=== PATIENT | female | born 1940 | race Caucasian/White ===

== ENCOUNTER 2021-04-26 09:15 | Outpatient (REF) | payer OTHER, SELFPAY ==
[2021-04-26 12:02] LABS: Alanine Aminotransferase 25 U/L (0-31); Aspartate Amino Transferase 22 U/L (5-31); Cholesterol 139 mg/dL; HDL Cholesterol 37 mg/dL; LDL Cholesterol Calculated 76 mg/dl; Triglycerides 132 mg/dL; Vitamin D 25-OH Total 33.6 ng/mL (>30)
== END 2021-04-26 09:16 | disposition home or self-care (01) ==
LOC: HO.HMGCLDS 09:15
PROVIDERS: Visit Provider Internal Medicine
DX: E78.5 Hyperlipidemia, unspecified (principal); Z78.0 Asymptomatic menopausal state
CPT/HCPCS: 36415; 80061; 82306; 84450; 84460

== ENCOUNTER 2021-08-13 08:56 | Outpatient (REF) | payer OTHER, SELFPAY ==
[2021-08-13 11:58] LABS: Alanine Aminotransferase 24 U/L (0-31); Anion Gap 15 (12-20); Aspartate Amino Transferase 18 U/L (5-31); Blood Urea Nitrogen 23 mg/dL (9-16); Calcium 10.1 mg/dL (8.4-10.2); Carbon Dioxide 23 mmol/L (22-29); Chloride 105 mmol/L (96-108); Cholesterol 131 mg/dL; Estimated Glomerular Filt Rate 35; Glucose Fasting 221 mg/dL (60-99); HDL Cholesterol 37 mg/dL; LDL Cholesterol Calculated 76 mg/dl; Potassium 4.7 mmol/L (3.3-5.1); Sodium 138 mmol/L (135-145); Triglycerides 92 mg/dL
[2021-08-13 12:25] LABS: Vitamin D 25-OH Total 37.2 ng/mL (>30)
[2021-08-13 12:46] LABS: Folate 11.4 ng/mL (> or = 4.0); Vitamin B12 608 pg/mL (200-900)
== END 2021-08-13 08:57 | disposition home or self-care (01) ==
LOC: HO.HMGCLDS 08:56
PROVIDERS: Visit Provider Internal Medicine
DX: E78.2 Mixed hyperlipidemia (principal); N95.9 Unspecified menopausal and perimenopausal disorder
CPT/HCPCS: 36415; 80048; 80061; 82306; 82607; 82746; 84450; 84460

== ENCOUNTER 2022-02-19 08:53 | Outpatient (REF) | payer MEDICARE, SELFPAY ==
[2022-02-19 11:49] LABS: Estimated Average Glucose 217 mg/dL; Hemoglobin A1c % 9.2 %
[2022-02-19 12:12] LABS: Alanine Aminotransferase 24 U/L (0-31); Aspartate Amino Transferase 18 U/L (5-31); Cholesterol 144 mg/dL; HDL Cholesterol 38 mg/dL; LDL Cholesterol Calculated 77 mg/dl; Triglycerides 145 mg/dL
[2022-02-19 12:37] LABS: Alanine Aminotransferase 22 U/L (0-31); Albumin Level 4.1 g/dL (3.5-5.0); Alkaline Phosphatase 73 U/L (39-117); Anion Gap 14 (12-20); Aspartate Amino Transferase 17 U/L (5-31); Bilirubin Total 0.6 mg/dL (0.0-1.0); Blood Urea Nitrogen 26 mg/dL (9-16); Carbon Dioxide 25 mmol/L (22-29); Chloride 105 mmol/L (96-108); Estimated Glomerular Filt Rate 38; Glucose Random 275 mg/dL (60-115); Sodium 139 mmol/L (135-145); Total Protein 6.9 g/dL (6.5-8.0)
[2022-02-19 12:38] LABS: Microalbum/Creatinine Ratio Ur 38.9 ug/mg cr
[2022-02-20 08:39] LABS: LDL Cholesterol Direct 82 mg/dL (<100)
== END 2022-02-19 08:54 | disposition home or self-care (01) ==
LOC: HO.HMGCLDS 08:53
PROVIDERS: Absent Provider Physician Assistant; PCP Internal Medicine; Visit Provider Internal Medicine
DX: E78.5 Hyperlipidemia, unspecified (principal); E11.29 Type 2 diabetes mellitus with other diabetic kidney complication
CPT/HCPCS: 36415; 80053; 80061; 82043; 83036; 83721; 84450; 84460

== ENCOUNTER 2023-02-02 09:15 | Outpatient (REF) | payer MEDICARE, SELFPAY ==
[2023-02-02 11:48] LABS: Estimated Average Glucose 226 mg/dL; Hemoglobin A1c % 9.5 % (<6.0)
[2023-02-02 12:07] LABS: Creatinine Urine 86.26 mg/dL; Microalbum/Creatinine Ratio Ur 57.9 ug/mg cr (<30)
[2023-02-02 12:56] LABS: Alanine Aminotransferase 20 U/L (0-31); Alkaline Phosphatase 76 U/L (39-117); Anion Gap 11 (12-20); Aspartate Amino Transferase 18 U/L (5-31); Bilirubin Total 0.6 mg/dL (0.0-1.0); Blood Urea Nitrogen 22 mg/dL (9-16); Calcium 10.4 mg/dL (8.4-10.2); Carbon Dioxide 27 mmol/L (22-29); Chloride 103 mmol/L (96-108); Estimated Glomerular Filt Rate 45; Glucose Random 230 mg/dL (60-115); Potassium 4.5 mmol/L (3.3-5.1); Sodium 136 mmol/L (135-145); Total Protein 7.3 g/dL (6.5-8.0)
[2023-02-02 12:57] LABS: Alanine Aminotransferase 20 U/L (0-31); Aspartate Amino Transferase 20 U/L (5-31); Cholesterol 148 mg/dL (<200); HDL Cholesterol 40 mg/dL (>40); LDL Cholesterol Calculated 77 mg/dL (<100); Triglycerides 159 mg/dL (<150)
== END 2023-02-02 09:16 | disposition home or self-care (01) ==
LOC: HO.HMGCLDS 09:15
PROVIDERS: Absent Provider Internal Medicine; PCP Internal Medicine; Visit Provider Internal Medicine
DX: E78.2 Mixed hyperlipidemia (principal); E11.42 Type 2 diabetes mellitus with diabetic polyneuropathy
CPT/HCPCS: 36415; 80053; 80061; 82043; 82570; 83036; 84450; 84460

== ENCOUNTER 2023-06-02 15:04 | Outpatient (REF) | payer MEDICARE, SELFPAY ==
[2023-06-02 17:21] LABS: MANUAL DIFF FLAG NO
[2023-06-02 17:34] LABS: Basophils Absolute Auto 0.1 X10*3/uL (0.0-0.2); Basophils Percent Auto 0.6 % (0-2); Eosinophils Absolute Auto 0.3 X10*3/uL (0.0-0.4); Eosinophils Percent Auto 2.8 % (0-4); Hematocrit 42.6 % (37.0-47.0); Hemoglobin 14.8 g/dl (12.0-16.0); Imm Gran Abs Auto 0.03 X10*3/uL (0.00-0.03); Imm Gran Pct Auto 0.3 % (0.0-0.4); Lymphocytes Absolute Auto 2.3 X10*3/uL (1.2-4.9); Lymphocytes Percent Auto 25.1 % (20-40); Mean Corpuscular HGB Conc 34.7 g/dl (31.0-35.0); Mean Corpuscular Hemoglobin 31.6 pg (27.0-33.0); Mean Corpuscular Volume 90.8 fL (80.0-98.0); Mean Platelet Volume 10.7 fL (9.4-12.3); Monocytes Absolute Auto 0.9 X10*3/uL (0.1-1.2); Neutrophils Absolute Auto 5.7 x10*3/uL (2.0-8.3); Neutrophils Percent Auto 61.2 % (45-73); Platelet Count 199 X10*3/uL (160-400); Red Blood Count 4.69 X10*6/uL (4.20-5.50); Red Cell Distribution Width 12.6 % (11.0-16.0); White Blood Count 9.3 X10*3/uL (4.8-10.8)
[2023-06-02 17:42] LABS: Estimated Average Glucose 249 mg/dL; Hemoglobin A1c % 10.3 % (<6.0)
[2023-06-02 17:43] LABS: Prothrombin Time 11.9 SEC (11.1-13.3)
[2023-06-02 17:48] LABS: Alanine Aminotransferase 31 U/L (0-31); Anion Gap 16 (12-20); Aspartate Amino Transferase 34 U/L (5-31); Blood Urea Nitrogen 31 mg/dL (9-16); Calcium 10.3 mg/dL (8.4-10.2); Carbon Dioxide 23 mmol/L (22-29); Chloride 103 mmol/L (96-108); Estimated Glomerular Filt Rate 32; Glucose Random 189 mg/dL (60-115); Potassium 4.9 mmol/L (3.3-5.1); Sodium 137 mmol/L (135-145)
[2023-06-02 17:50] LABS: Creatinine Urine 71.85 mg/dL; Microalbum/Creatinine Ratio Ur 12.5 ug/mg cr (<30)
== END 2023-06-02 15:05 | disposition home or self-care (01) ==
LOC: HO.CHCLDS 15:04
PROVIDERS: PCP Internal Medicine; Referring Provider Physician Assistant; Visit Provider Internal Medicine Cardiovascular Disease
DX: E11.42 Type 2 diabetes mellitus with diabetic polyneuropathy (principal); Z45.02 Encounter for adjustment and management of automatic implantable cardiac defibrillator
CPT/HCPCS: 36415; 80048; 82043; 82570; 83036; 84450; 84460; 85025; 85610

== ENCOUNTER 2023-08-31 08:49 | Outpatient (REF) | payer MEDICARE, SELFPAY ==
[2023-08-31 10:58] LABS: Alanine Aminotransferase 32 U/L (0-31); Anion Gap 15 (12-20); Aspartate Amino Transferase 24 U/L (5-31); Blood Urea Nitrogen 30 mg/dL (9-16); Calcium 9.3 mg/dL (8.4-10.2); Carbon Dioxide 23 mmol/L (22-29); Chloride 105 mmol/L (96-108); Cholesterol 148 mg/dL (<200); Estimated Glomerular Filt Rate 42; Glucose Fasting 310 mg/dL (60-99); HDL Cholesterol 36 mg/dL (>40); LDL Cholesterol Calculated 80 mg/dL (<100); Potassium 4.8 mmol/L (3.3-5.1); Sodium 138 mmol/L (135-145); Triglycerides 160 mg/dL (<150)
[2023-08-31 11:12] LABS: Vitamin D 25-OH Total 38.4 ng/mL (>30)
== END 2023-08-31 08:50 | disposition home or self-care (01) ==
LOC: HO.HMGCLDS 08:49
PROVIDERS: PCP Internal Medicine; Visit Provider Internal Medicine
DX: N18.9 Chronic kidney disease, unspecified (principal); E11.9 Type 2 diabetes mellitus without complications; E78.2 Mixed hyperlipidemia; Z78.0 Asymptomatic menopausal state
CPT/HCPCS: 36415; 80048; 80061; 82306; 84450; 84460

== ENCOUNTER 2023-09-02 12:07 | Outpatient (AMB) | payer MEDICARE, SELFPAY ==
--- NOTE | 2023-09-02 12:45 | A.OFFPC_ITS ---
Vital Signs 09/02/23 12:48 Height 5 ft 6.5 in Weight 194 lb BMI 30.8 BP 126/68 Blood Pressure Location Lt brachial Position Sitting Pulse 58 Pulse Source Pulse Oximeter Pulse Oximetry (%) 95 Oxygen Delivery Method Room Air Intake Visit Reasons: Annual PE Intake Note: Pt is here for annual PE. Mammogram 05/07/22 Allergies No Known Allergies Allergy (Verified 09/02/23 13:02) Medication List - Last Reconciled 09/02/23 by Cami Enrique MD atorvastatin 20 mg PO DAILY carvedilol 12.5 mg PO BID cyanocobalamin (vitamin B-12) 1,000 mcg IM Q4W 90 days ezetimibe 10 mg PO DAILY furosemide 20 mg PO Q2D gabapentin 300 mg PO DAILY insulin glargine 82 units subcut QPM insulin lispro subcut metformin ER 500 mg PO DAILY spironolactone 25 mg PO DAILY Tobacco use date assessed: 09/02/23 Dental Screening Dental Screen Date: 09/02/23 Did you have a dental visit in the last 12 months?: No Was dental information given to patient?: No HPI Annual PE HPI Details 82 year-old lady with past medical histo ry left breast cancer, diabetes mellitus, currently being followed by Dr Gali Torres , has history of paroxysmal atrial fibrillation, and ischemic cardiomyopathy, followed by cardiology, has chronic kidney disease followed by Dr. Grewal, here today for her physical examination . Patient states that she was doing very well when she was taking Trulicity but has not been able to fill her prescription due to medication being out of stock now for the last 2 months. She restarted herself back on metformin 500 mg once a day in addition to insulin glargine 82 units at night and mealtime insulin administered by sliding scale but her blood sugar has still been uncontrolled. Hemoglobin A1c today is at 11.7%. Has hyperlipidemia currently on ezetimibe and atorvastatin 20 mg daily. Fasting lipids are within normal limits. She however has been experiencing muscle pain and weakness mainly in her thighs, which resolved after she temporarily stopped taking atorvastatin for 3 weeks. Has chronic kidney disease, followed by Nephrology, likely related to hypertension and had an acute episodes of acute kidney injury which resolved on REESE inhibitor was discontinued. She also has an element of white coat hypertension. Currently blood pressure is stable and controlled on spironolactone. She has chronic heart failure preserved ejection fraction, nonrheumatic mitral valve regurgitation and sick sinus syndrome currently with pacemaker placed, followed by cardiology, blood pressure is well controlled on present treatment. [facility] Medical History (Updated 09/02/23 @ 16:38 by Cami Enrique MD) Arthralgia of both knees Myalgia due to statin CKD (chronic kidney disease) Infiltrating ductal carcinoma of left breast Type 2 diabetes mellitus, without long-term current use of insulin Atherosclerotic heart disease Ischemic cardiomyopathy Mixed dyslipidemia History of sick sinus syndrome Postmenopause Pacemaker Surgical History History of cataract surgery S/P JOSELITO-BSO S/P placement of cardiac pacemaker Hx of lumpectomy Family History Father No problems noted. Mother Mental health disorder Social History Housing: Apartment Alcohol intake: former Patient Tobacco Use Status: Never used Tobacco e-Cigarette/Vaping Use: Never Used Current occupational status: retired Cognitive needs: No Hearing needs: No Vision needs: Yes Questionnaire PHQ-9 Over the last 2 weeks, how often have you been bothered by any of the following problems? 1. Little interest or pleasure in doing things: not at all 2. Feeling down, depressed, or hopeless: not at all 3. Trouble falling or staying asleep, or sleeping too much: not at all 4. Feeling tired or having little energy: not at all 5. Poor appetite or overeating: not at all 6. Feeling bad about yourself - or that you are a failure or have let yourself or your family down: not at all 7. Trouble concentrating on things, such as reading the newspaper or watching television: not at all 8. Moving or speaking so slowly that other people could have noticed. Or the opposite - being so fidgety or restless that you have been moving around a lot more than usual: not at all 9. Thoughts that you would be better off or of hurting yourself in some way: not at all Total score: 0 Depression Screening Interpretation: Negative Depression Screening Done: Yes 83510 - PHQ-9 Billing: Yes Source: Developed by Drs. Trace Sosa, Joya Mederos, Damaso Qureshi and colleagues, with an educational cipriano from [employer]. Thrive Questionnaire Date Thrive assessed: 09/02/23 I am a: Patient What is your living situation today?: I have a steady place to live Within the past 12 months, did the food you bought not last and you didn't have the money to get more?: Never true Within the past 12 months, did you worry whether your food would run out before you got money to buy more?: Never true Do you have trouble paying for medicines?: No Do you have trouble getting transportation to medical appointments?: No Do you have trouble paying your heating and electricity bill?: No Do you have trouble taking care of your child, family member or friend?: No Do you have trouble with day-to-day activities such as bathing, preparing meals, shopping, managing finances, etc.?: No Are you currently unemployed and looking for a job?: No THRIVE Score: 0 AUDIT C Alcohol Use Questionnaire (AUDIT-C) 1. How often do you have a drink containing alcohol?: Never 3. How often do you have six or more drinks on one occasion?: Never Total Score: 0 ANGELLA-7 AMB Questionnaire ANGELLA-7 Date ANGELLA - 7 assessed: 09/02/23 Feeling nervous, anxious, or on edge: 0 = Not at all Not being able to stop or control worryin = Not at all Worrying too much about different things: 0 = Not at all Trouble relaxin = Not at all Being so restless that it is hard to sit still: 0 = Not at all Becoming easily annoyed or irritable: 0 = Not at all Feeling afraid as if something awful might happen: 0 = Not at all Total ANGELLA-7 score (0-4 normal; 5-9 mild; 10-14 moderate; 15-21 severe): 0 Source: Developed by Drs. Trace Sosa, Joya Mederos, Damaso Qureshi and colleagues, with an educational cipriano from [employer]. ANGELLA-7 Assessment Billing ANGELLA-7 Assessment Tool: ANGELLA-7 Assessment 97259 Review of Systems Const Denies body aches, Denies fatigue, Denies fever(s), Denies headache(s) and Denies weakness Eyes Denies change in vision ENT Denies dizziness, Denies headache(s), Denies nasal congestion, Denies nasal discharge and Denies sore throat Card Denies chest pain, Denies lightheadedness, Denies palpitations and Denies dyspne a Resp Denies chest congestion, Denies cough, Denies dyspnea and Denies wheezing GI Denies abdominal pain, Denies change in bowel habits and Denies heartburn Denies urinary frequency, Denies dysuria and Denies urinary urgency Musc Reports stiffness Skin/Breast Denies lesions and Denies rash Neuro Denies dizziness, Denies headache(s) and Denies weakness Psych Reports no additional complaints Endo Denies fatigue, Denies polydipsia, Denies polyuria and Denies palpitations Eloy/Lymph Denies easy bruising Aller/Immun Denies seasonal rhinorrhea and Denies wheezing Physical exam (Primary Care) Vital Signs: Last Vital Signs Pulse 58 09/02/23 12:48 BP 126/68 09/02/23 12:48 Pulse Ox 95 09/02/23 12:48 Oxygen Delivery Method Room Air 09/02/23 12:48 BMI result Body Mass Index 30.8 Tobacco/Smoking Status: Tobacco use Status Tobacco use date assessed 09/02/23 09/02/23 12:59 Patient Tobacco Use Status Never used Tobacco 09/02/23 12:47 e-Cigarette/Vaping Use Never Used 09/02/23 12:47 PHQ-9: PHQ-9 Score PHQ-9: Total score 0 09/02/23 15:55 Depression Screening Interpretation: Negative Thrive Assessment: Date of Thrive Assessment Date Thrive assessed 09/02/23 09/02/23 16:39 Const General: comfortable, no acute distress and alert Orientation/consciousness: patient oriented x3 HENMT Ears: external ears normal, TM's normal bilaterally and EAC's normal General nose exam: Normal external nose present and No nasal discharge present Mouth: moist mucous membranes Eyes General: appearance normal, both eyes and all related structures Neck Neck: Yes full ROM, Yes no lymphadenopathy and Yes supple Resp Effort & Inspection: normal respiratory effort and able to speak in complete sentences Auscultation: clear to auscultation bilaterally Cardio Rate: regular rate Rhythm: regular rhythm Heart sounds: S1 normal heart sound present and S2 normal heart sound present GI Palpation (GI): Soft to palpation, nontender and no masses Auscultation: normal bowel sounds General: Yes no CVA tenderness Back/Spine/Pelvis Back: no CVA tenderness and No back tenderness Neuro General: patient oriented x3, gait normal, tone normal, moves all extremities, Normal light touch and pain sensation and no focal motor deficits Cranial nerves: Yes CN's II-XII intact bilaterally Cognition (Neuro): normal cognition Extrem Other: Crepitus in both knees General: Yes full ROM, Yes no joint enlargement, Yes no clubbing, cyanosis or edema and Yes no calf tenderness Psych Appearance: grossly normal Mental Status: mental status grossly normal Speech and movement: Normal speech and movement present Affect: normal affect Thought process: Normal thought process present Thought content: Normal thought content present Results AMB Hemoglobin A1c AMB Hemoglobin A1c 11.7 % Last Edit by Juan F Schaefer CMA on 09/02/23 13:27 Results Reviewed Results Reviewed: Laboratory Last Values Hgb A1c (Clinic) 11.7 % (4.0-6.0) H 09/02/23 12:49 min: Luly Mehta Age/Sex: 82/F : 1940 Unit#: [id number] Attend Dr: JANUSZ VIEYRA MD Re06/02/23 Status: DEP REF Location: [facility] Disch: SPEC : [id number] DAVID: 06/02/23 STATUS: COMP REQ : [id number] RECD: 06/02/[address]: JANUSZ VIEYRA MD COMP: 06/02/23 ENTERED: 06/02/23-[address]: JOSHUA RUTH ORDERED: CBC Auto Diff Test Result Flag Reference WBC 9.3 4.8-10.8 X10*3/uL RBC 4.69 4.20-5.50 X10*6/uL HGB 14.8 12.0-16.0 g/dl HCT 42.6 37.0-47.0 % MCV 90.8 80.0-98.0 fL MCH 31.6 27.0-33.0 pg MCHC 34.7 31.0-35.0 g/dl RDW 12.6 11.0-16.0 % PLT 199 160-400 X10*3/uL MPV 10.7 9.4-12.3 fL Neut Pct Auto 61.2 45-73 % ImGran Pct Auto 0.3 0.0-0.4 % Lymp Pct Auto 25.1 20-40 % [place] Pct Auto 10.0 2-11 % Eos Pct Auto 2.8 0-4 % Baso Pct Auto 0.6 0-2 % NRBC Pct Auto 0.0 0.0-0.2 /100WBC ANC Neut Abs # 5.7 2.0-8.3 x10*3/uL ImGran Abs Auto 0.03 0.00-0.03 X10*3/uL Lymph Abs Auto 2.3 1.2-4.9 X10*3/uL [place] Abs Auto 0.9 0.1-1.2 X10*3/uL Eos Abs Auto 0.3 0.0-0.4 X10*3/uL Baso Abs Auto 0.1 0.0-0.2 X10*3/uL NRBC Abs Auto 0.000 0.0-0.012 X10*3/uL Name: Luly Mehta Age/Sex: 82/F : 1940 Unit#: [id number] Attend Dr: Cami Enrique MD Re08/31/23 Status: DEP REF Location: [facility] Disch: SPEC : [id number] DAVID: 08/31/23 STATUS: COMP REQ : [id number] RECD: 08/31/23-[address]: Cami Enrique MD COMP: 08/31/23-2 ENTERED: 08/31/23 [facility] DR: ORDERED: Met Prof Fast, AST, ALT, Lipid Panel, Vitamin D 25-OH Test Result Flag Reference Sodium 138 135-145 mmol/L Potassium 4.8 3.3-5.1 mmol/L CL 105 96-108 mmol/L CO2 23 22-29 mmol/L Gap 15 12-20 BUN 30 H 9-16 mg/dL Creat 1.21 0.5-1.4 mg/dL EGFR 42 NOTE: For -[place] individuals, multiply the result by 1.210. Chronic Kidney Disease: Estimated GFR < 60 mL/min/1.73m2 Severe Kidney Disease: Estimated GFR < 15 mL/min/1.73m2 FBS 310 H 60-99 mg/dL A fasting glucose of 126 mg/dl or greater on more than one occasion is considered diagnostic of diabetes. CA 9.3 # 8.4-10.2 mg/dL AST (GOT) 24 5-31 U/L ALT (GPT) 32 H 0-31 U/L Triglyceride 160 H <150 mg/dL Desirable Triglyceride: less than 150 mg/dL Borderline High Triglyceride 150-199 mg/dL High Triglyceride: 200-499 mg/dL Very High Triglyceride: greater than or equal to 5OO mg/dL Cholesterol 148 <200 mg/dL Desirable Cholesterol: less than 200 mg/dL Borderline High Cholesterol: 200-239 mg/dL High Cholesterol: greater than 239 mg/dL LDL Calculated 80 <100 mg/dL Desirable LDL: less than 100 mg/dL Near Optimal/Above Optimal LDL: 110-129 mg/dL Borderline High LDL: 130-159 mg/dL High LDL: 160-189 mg/dL Very High LDL: greater than or equal to 190 mg/dL HDL 36 L >40 mg/dL Desirable HDL: greater than 40 mg/dL Note: This HDL assay may give artificially low results in patients with liver disease. Vit D 25-OH Tot 38.4 >30 ng/mL Health Based Reference Values* < 20 ng/mL Deficient 20-30 ng/mL Insufficient > 30 ng/mL Sufficient Assessment and Plan Assessment & Plan (1) CKD (chronic kidney disease): Comment: ff'd by Dr Grewal Code(s): N18.9 - Chronic kidney disease, unspecified Plan: Continue avoidance of NSAIDs, important to control blood pressure and diabetes mellitus. Continue on spironolactone. She is now currently being followed by a different highway engineer, as Dr. Grewal has retired. Requested copy of latest office visit from her highway engineer. (2) Type 2 diabetes mellitus, without long-term current use of insulin: Comment: Followed by [facility] endocrine clinic Code(s): E11.9 - Type 2 diabetes mellitus without complications Plan: Hemoglobin A1c today is at 11.7%. Patient states that blood sugar has been higher for the last several weeks that she has has been out of her Trulicity. She restarted herself back on metformin ER 500 mg once a day and continued on Lantus and mealtime insulin. She does have an upcoming appointment with Dr. Torres for her diabetes mellitus follow-up next week. Up-to-date with her diabetes retinopathy screening. Up-to-date with her pneumococcal vaccination (3) Mixed dyslipidemia: Code(s): E78.2 - Mixed hyperlipidemia Plan: Currently on ezetimibe but atorvastatin dosing decreased to 20 mg taken every other day due to myalgia likely due to statin. Will repeat another fasting lipid panel in 3 months (4) History of sick sinus syndrome: Code(s): Z86.79 - Personal history of other diseases of the circulatory system Plan: Has pacemaker in place, followed by Dr. Vieyra (5) Atherosclerotic heart disease: Comment: Followed by Dr. Madison Code(s): I25.10 - Atherosclerotic heart disease of [place] coronary artery without angina pectoris Plan: Followed by cardiology, currently on carvedilol (6) Myalgia due to statin: Code(s): M79.10 - Myalgia, unspecified site; T46.6X5A - Adverse effect of antihyperlipidemic and antiarteriosclerotic drugs, initial encounter Plan: DECREASE ATORVASTATIN DOSING TO 20 MG EVERY OTHER DAY, REPEAT ANOTHER FASTING LIPID PANEL IN 12/04/2023. (7) Annual visit for general adult medical examination with abnormal findings: Code(s): Z00.01 - Encounter for general adult medical examination with abnormal findings Plan: Reviewed recent fasting lab results with patient. Continue regular dental visit for prophylaxis every 6 months. Up-to-date with her diabetes retinopathy screening and eye exam. Has had COVID vaccinations but does not want to get the booster, gets yearly flu shot, up-to-date with her pneumonia vaccination. Declines getting shingles vaccine. (8) Arthralgia of both knees: Code(s): M25.561 - Pain in right knee; M25.562 - Pain in left knee Plan: Takes Tylenol arthritis 650 mg 1 tablet twice a day as needed and or massages and gait to affected joints which affords temporary relief. Handicap placard application form completed and given to patient to complete and mail Orders: Orders AMB Hemoglobin A1c Today E11.9 - Type 2 diabetes mellitus without complications Coding Level of Care Code Est Pt Prev Care >65y(43856) Diagnoses CKD (chronic kidney disease) N18.9 Type 2 diabetes mellitus, without long-term current use of insulin E11.9 Mixed dyslipidemia E78.2 History of sick sinus syndrome Z86.79 Atherosclerotic heart disease I25.10 Myalgia due to statin M79.10; T46.6X5A Annual visit for general adult medical examination with abnormal findings Z00.01 Arthralgia of both knees M25.561; M25.562 Additional Codes ANGELLA-7 Assessment Billing - ANGELLA-7 Assessment Tool: ANGELLA-7 Assessment [id number] ([id number])
[2023-09-02 12:48] VITALS: BP 126/68; PULSE 58; O2SAT 95; BMI 30.8
== END 2023-09-02 13:42 | disposition home or self-care (01) ==
PROVIDERS: PCP Internal Medicine; Visit Provider Internal Medicine
DX: Z00.00 Encounter for general adult medical examination without abnormal findings (principal); E11.22 Type 2 diabetes mellitus with diabetic chronic kidney disease; N18.9 Chronic kidney disease, unspecified; E78.2 Mixed hyperlipidemia; Z86.79 Personal history of other diseases of the circulatory system; I25.10 Atherosclerotic heart disease of native coronary artery without angina pectoris; M79.10 Myalgia, unspecified site; T46.6X5A Adverse effect of antihyperlipidemic and antiarteriosclerotic drugs, initial encounter; M25.561 Pain in right knee; M25.562 Pain in left knee
CPT/HCPCS: 83036; 99397

== ENCOUNTER 2024-02-19 08:29 | Outpatient (REF) | payer MEDICARE, SELFPAY ==
[2024-02-19 11:05] LABS: Alanine Aminotransferase 44 U/L (0-31); Anion Gap 14 (12-20); Aspartate Amino Transferase 31 U/L (5-31); Blood Urea Nitrogen 28 mg/dL (9-16); Calcium 9.9 mg/dL (8.4-10.2); Carbon Dioxide 23 mmol/L (22-29); Chloride 106 mmol/L (96-108); Cholesterol 248 mg/dL (<200); Estimated Glomerular Filt Rate 37; Glucose Fasting 227 mg/dL (60-99); HDL Cholesterol 39 mg/dL (>40); LDL Cholesterol Calculated 151 mg/dL (<100); Potassium 4.5 mmol/L (3.3-5.1); Sodium 138 mmol/L (135-145); Triglycerides 292 mg/dL (<150)
[2024-02-19 11:05] LABS: Creatinine Urine 150.43 mg/dL; Microalbum/Creatinine Ratio Ur 29.2 ug/mg cr (<30)
[2024-02-19 11:09] LABS: Vitamin D 25-OH Total 69.3 ng/mL (>30)
[2024-02-19 11:34] LABS: Estimated Average Glucose 209 mg/dL; Hemoglobin A1C 269.0509 umol/L; Hemoglobin A1c % 8.9 % (<6.0); Total Hemoglobin (HGBA1C) 3672.3048 umol/L
== END 2024-02-19 08:30 | disposition home or self-care (01) ==
LOC: HO.HMGCLDS 08:29
PROVIDERS: PCP Internal Medicine; Visit Provider Internal Medicine
DX: N18.9 Chronic kidney disease, unspecified (principal); E11.9 Type 2 diabetes mellitus without complications; E78.2 Mixed hyperlipidemia; Z78.0 Asymptomatic menopausal state
CPT/HCPCS: 36415; 80048; 80061; 82043; 82306; 82570; 83036; 84450; 84460

== ENCOUNTER → 2024-02-23 11:09 | Outpatient (BNVA) | payer MEDICARE, SELFPAY | PROVIDERS: PCP Internal Medicine; Visit Provider Internal Medicine ==

== ENCOUNTER 2024-04-01 12:49 | Outpatient (REF) | payer MEDICARE, SELFPAY ==
[2024-04-01 14:17] LABS: Appearance Urine Cloudy; Color Urine Yellow; Glucose Urine UA Negative (Negative); Leukocyte Esterase Urine Large (3+) (Negative); Nitrite Urine Negative (Negative); UMIC TRIGGER UA YES; Urine Blood Negative (Negative); Urine Ketones Negative (Negative); Urine Protein Negative (Neg-Trace)
[2024-04-01 14:19] LABS: Bacteria Urine 4+ (None Seen); Hyaline Casts Urine 0-2 /LPF (0-2); RBC Urine 0-2 /HPF (0-2); WBC Urine 21-50 /HPF (0-5)
[2024-04-01 14:22] LABS: Hematocrit 41.2 % (37.0-47.0); Hemoglobin 14.3 g/dl (12.0-16.0); Mean Corpuscular HGB Conc 34.7 g/dl (31.0-35.0); Mean Corpuscular Hemoglobin 31.4 pg (27.0-33.0); Mean Corpuscular Volume 90.4 fL (80.0-98.0); Mean Platelet Volume 10.2 fL (9.4-12.3); Platelet Count 195 X10*3/uL (160-400); Red Blood Count 4.56 X10*6/uL (4.20-5.50); Red Cell Distribution Width 12.8 % (11.0-16.0); White Blood Count 8.1 X10*3/uL (4.8-10.8)
[2024-04-01 14:40] LABS: Anion Gap 13 (12-20); Blood Urea Nitrogen 24 mg/dL (9-16); Calcium 10.1 mg/dL (8.4-10.2); Carbon Dioxide 22 mmol/L (22-29); Chloride 107 mmol/L (96-108); Estimated Glomerular Filt Rate 46; Iron 94 mcg/dL (30-160); Magnesium 1.8 mg/dL (1.6-2.6); Percent Iron Saturation 33 % (15-50); Potassium 4.8 mmol/L (3.3-5.1); Sodium 137 mmol/L (135-145); Total Iron Binding Capacity 287 mcg/dL (228-428); Unsaturated Iron Binding 193 ug/dL
[2024-04-01 14:51] LABS: Creatinine Urine 37.02 mg/dL
[2024-04-01 14:57] LABS: Ferritin 258 ng/mL (10-250); Vitamin D 25-OH Total 62.4 ng/mL (>30)
[2024-04-01 14:58] LABS: Parathyroid Hormone Intact 54.2 pg/mL (8.7-77.1)
== END 2024-04-01 12:50 | disposition home or self-care (01) ==
LOC: HO.CHCLDS 12:49
PROVIDERS: Visit Provider Internal Medicine Nephrology
DX: N18.32 Chronic kidney disease, stage 3b (principal); I10 Essential (primary) hypertension; D63.1 Anemia in chronic kidney disease
CPT/HCPCS: 36415; 80051; 81001; 82043; 82306; 82310; 82565; 82570; 82728; 83540; 83735; 83970; 84520; 85027

== ENCOUNTER 2024-04-13 09:00 | Outpatient (AMB) | payer MEDICARE, SELFPAY ==
[2024-04-13 09:53] VITALS: BP 140/72; PULSE 63; RESP 16; TEMP 36.5; O2SAT 95; BMI 30.4
--- NOTE | 2024-04-13 09:53 | A.OFFPC_ITS ---
Vital Signs 04/13/24 09:53 Height 5 ft 6.5 in Weight 191 lb BMI 30.4 BP 140/72 H Blood Pressure Location Lt brachial Position Sitting Respiration 16 Pulse 63 Pulse Source Pulse Oximeter Temp 97.7 F Pulse Oximetry (%) 95 Oxygen Delivery Method Room Air Intake Visit Reasons: 3 Month follow up Intake Note: Pt is here today for her 3mo. f/u Allergies No Known Allergies Allergy (Verified 04/13/24 10:11) Medication List - Last Reconciled 04/17/24 by Cami Enrique MD atorvastatin 20 mg PO Q2D 3 months carvedilol 12.5 mg PO BID cholecalciferol (vitamin D3) (Vitamin D3) 25 mcg PO Q2D cyanocobalamin (vitamin B-12) 1,000 mcg IM Q OTHER DAY ezetimibe 10 mg PO DAILY furosemide 20 mg PO Q2D gabapentin 300 mg PO DAILY insulin glargine 82 units subcut QPM insulin lispro subcut metformin ER 500 mg PO DAILY semaglutide (Ozempic) mg subcut spironolactone 25 mg PO DAILY Tobacco use date assessed: 04/13/24 Fall risk assessment: No Falls in past year Last assessed Fall Risk: 04/13/24 Dental Screening Dental Screen Date: 04/13/24 Did you have a dental visit in the last 12 months?: No Did you have a dental problem in the last 6 months where you did not have access to dental care?: No Was dental information given to patient?: No HPI 3 Month follow up HPI Details 83 year-old lady with past medical histo ry of left breast cancer, diabetes mellitus, currently being followed by Dr Gali Torres , has history of paroxysmal atrial fibrillation, and ischemic cardiomyopathy, followed by cardiology, has chronic kidney disease followed by Dr. Grewal, here today for follow-up on her hypertension. She is currently taking carvedilol 12.5 mg 1 tablet twice a day, furosemide 20 mg taken 1 every other day, and spironolactone 25 mg daily prescribed by her upholstery cutter. Blood pressure has been within acceptable limits. Last hemoglobin A1c in 03/04/2024 was elevated at 8.9%, currently followed by Dr. Torres, and April Sutherland, now on metformin and Ozempic mg subcutaneously given once a week. The patient states that she has a follow-up appointment already scheduled . Recent fasting labs done showed elevated LDL cholesterol at 151 mg/dL and elevated triglycerides at 292 mg/dL. She is not taking her atorvastatin, as it was giving her muscle pain, but still taking ezetimibe 10 mg daily. 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 Mother Mental health disorder Social History Housing: Apartment Alcohol intake: former Patient Tobacco Use Status: Never used Tobacco e-Cigarette/Vaping Use: Never Used Current occupational status: retired Cognitive needs: No Hearing needs: No Vision needs: Yes Questionnaire PHQ-9 Over the last 2 weeks, how often have you been bothered by any of the following problems? 1. Little interest or pleasure in doing things: not at all 2. Feeling down, depressed, or hopeless: not at all 3. Trouble falling or staying asleep, or sleeping too much: not at all 4. Feeling tired or having little energy: not at all 5. Poor appetite or overeating: not at all 6. Feeling bad about yourself - or that you are a failure or have let yourself or your family down: not at all 7. Trouble concentrating on things, such as reading the newspaper or watching television: not at all 8. Moving or speaking so slowly that other people could have noticed. Or the opposite - being so fidgety or restless that you have been moving around a lot more than usual: not at all 9. Thoughts that you would be better off or of hurting yourself in some way: not at all Total score: 0 Depression Screening Interpretation: Negative Depression Screening Done: Yes 15637 - PHQ-9 Billing: Yes Source: Developed by Drs. Trace Sosa, Joya Mederos, Damaso Qureshi and colleagues, with an educational cipriano from [employer]. Thrive Questionnaire Date Thrive assessed: 04/13/24 I am a: Patient What is your living situation today?: I have a steady place to live Within the past 12 months, did the food you bought not last and you didn't have the money to get more?: Never true Within the past 12 months, did you worry whether your food would run out before you got money to buy more?: Never true Do you have trouble paying for medicines?: No Do you have trouble getting transportation to medical appointments?: No Do you have trouble paying your heating and electricity bill?: No Do you have trouble taking care of your child, family member or friend?: No Do you have trouble with day-to-day activities such as bathing, preparing meals, shopping, managing finances, etc.?: No Are you currently unemployed and looking for a job?: Yes Are you interested in more education?: No Please select the resources that you would like help with: None Currently or been in a relationship where the following occur: No concerns reported THRIVE Score: 0 AUDIT C Alcohol Use Questionnaire (AUDIT-C) 1. How often do you have a drink containing alcohol?: Never Total Score: 0 ANGELLA-7 AMB Questionnaire ANGELLA-7 Date ANGELLA - 7 assessed: 04/13/24 Feeling nervous, anxious, or on edge: 0 = Not at all Not being able to stop or control worryin = Not at all Worrying too much about different things: 0 = Not at all Trouble relaxin = Not at all Being so restless that it is hard to sit still: 0 = Not at all Becoming easily annoyed or irritable: 0 = Not at all Feeling afraid as if something awful might happen: 0 = Not at all Total ANGELLA-7 score (0-4 normal; 5-9 mild; 10-14 moderate; 15-21 severe): 0 Source: Developed by Joya LopezW. Gatito, Damaso Qureshi and colleagues, with an educational cipriano from [employer]. ANGELLA-7 Assessment Billing ANGELLA-7 Assessment Tool: ANGELLA-7 Assessment 39155 Review of Systems Const Denies body aches, Denies fatigue, Denies fever(s) and Denies headache(s) Eyes Denies change in vision ENT Denies dizziness, Denies headache(s), Denies nasal congestion, Denies nasal discharge and Denies sore throat Card Denies chest pain, Denies lightheadedness, Denies palpitations and Denies dyspnea Resp Denies chest congestion, Denies cough, Denies dyspnea and Denies wheezing GI Denies abdominal pain, Denies change in bowel habits and Denies heartburn Denies urinary frequency, Denies dysuria and Denies urinary urgency Musc Reports stiffness Skin/Breast Denies lesions and Denies rash Neuro Denies dizziness and Denies headache(s) Psych Reports no additional complaints Endo Denies fatigue, Denies polydipsia, Denies polyuria and Denies palpitations Eloy/Lymph Denies easy bruising Aller/Immun Denies seasonal rhinorrhea and Denies wheezing Physical exam (Primary Care) Vital Signs: Last Vital Signs Temp 97.7 F 04/13/24 09:53 Pulse 63 04/13/24 09:53 Resp 16 04/13/24 09:53 BP 140/72 H 04/13/24 09:53 Pulse Ox 95 04/13/24 09:53 Oxygen Delivery Method Room Air 04/13/24 09:53 BMI result Body Mass Index 30.4 Tobacco/Smoking Status: Tobacco use Status Tobacco use date assessed 04/13/24 04/13/24 09:59 Patient Tobacco Use Status Never used Tobacco 04/13/24 09:59 e-Cigarette/Vaping Use Never Used 04/13/24 09:59 PHQ-9: PHQ-9 Score PHQ-9: Total score 0 04/13/24 10:16 Depression Screening Interpretation: Negative Thrive Assessment: Date of Thrive Assessment Date Thrive assessed 04/13/24 04/13/24 09:59 Currently or been in a relationship where the following occur: No concerns reported Const General: comfortable, no acute distress and alert Orientation/consciousness: patient oriented x3 HENMT Ears: external ears normal, TM's normal bilaterally and EAC's normal General nose exam: Normal external nose present and No nasal discharge present Mouth: moist mucous membranes Eyes General: appearance normal, both eyes and all related structures Neck Neck: Yes full ROM, Yes no lymphadenopathy and Yes supple Resp Effort & Inspection: normal respiratory effort and able to speak in complete sentences Auscultation: clear to auscultation bilaterally Cardio Rate: regular rate Rhythm: regular rhythm Heart sounds: S1 normal heart sound present and S2 normal heart sound present GI Palpation (GI): Soft to palpation, nontender and no masses Auscultation: normal bowel sounds General: Yes no CVA tenderness Back/Spine/Pelvis Back: no CVA tenderness and No back tenderness Neuro General: patient oriented x3, gait normal, tone normal, moves all extremities, Normal light touch and pain sensation and no focal motor deficits Cranial nerves: Yes CN's II-XII intact bilaterally Cognition (Neuro): normal cognition Extrem Other: Crepitus in both knees General: Yes full ROM, Yes no joint enlargement, Yes no clubbing, cyanosis or edema and Yes no calf tenderness Psych Appearance: grossly normal Mental Status: mental status grossly normal Speech and movement: Normal speech and movement present Affect: normal affect Thought process: Normal thought process present Thought content: Normal thought content present Results Reviewed Results Reviewed: Name: Luly Mehta Age/Sex: 83/F : 1940 Unit#: [id number] Attend Dr: Hazel Montoya APRN Re04/01/24 Status: DEP REF Location: [facility] Disch: SPEC : [id number] DAVID: 04/01/24 STATUS: COMP REQ : [id number] RECD: 04/01/24-[address]: Hazel Montoya APRN COMP: 04/01/24 ENTERED: 04/01/24-[address]: ORDERED: Lytes, BUN, Creat, CA, MG, IRON PROF, Ferritin, Vitamin D 25-OH Test Result Flag Reference Sodium 137 135-145 mmol/L Potassium 4.8 3.3-5.1 mmol/L CL 107 96-108 mmol/L CO2 22 22-29 mmol/L Gap 13 12-20 BUN 24 H 9-16 mg/dL Creat 1.13 0.5-1.4 mg/dL eGFR 46 Chronic Kidney Disease: Estimated GFR < 60 mL/min/1. 73m2 Severe Kidney Disease: Estimated GFR < 15 mL/min/1.73m2 CA 10.1 8.4-10.2 mg/dL Magnesium 1.8 1.6-2.6 mg/dL Iron 94 30-160 mcg/dL TIBC 287 228-428 mcg/dL Saturation 33 15-50 % UIBC 193 ug/dL Ferritin 258 H 10-250 ng/mL Vit D 25-OH Tot 62.4 >30 ng/mL Health Based Reference Values* < 20 ng/mL Deficient 20-30 ng/mL Insufficient > 30 ng/mL Sufficient Laboratory Tests 02/19/24 04/01/24 08:35 13:09 Fasting Glucose 227 H Estimat Average Glucose 209 Hemoglobin A1c % 8.9 H Calcium 9.9 D AST 31 ALT 44 H Triglycerides 292 H Cholesterol 248 H LDL Cholesterol, Calc 151 H 25-OH Vitamin D Total 69.3 Urine Creatinine 37.02 Urine Microalbumin 10.0 Microalb/Creat Ratio 27.0 Coding Level of Care Code Est Pt Level 4 (99811) Complex EM visit Add On G2211 Diagnoses Mixed dyslipidemia E78.2 CKD (chronic kidney disease) N18.9 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 Take it together with the Co Q10 100 mg daily. Repeat anoth er fasting lipid panel in together with total CK levels in 3 months. Adherence to healthy eating habits and regular exercise advised (2) CKD (chronic kidney disease): Comment: ff'd by hazel montoya NP Code(s): N18.9 - Chronic kidney disease, unspecified Category: Medical Plan: Followed by Nephrology (3) Type 2 diabetes mellitus with mild nonproliferative retinopathy of both e yes, with long-term current use of insulin: Comment: Followed by Dr. Torres and Dr. Sewell Code(s): E11.3293 - Type 2 diabetes mellitus with mild nonproliferative diabetic retinopathy without macular edema, bilateral; Z79.4 - assisted (current) use of insulin Category: Medical Plan: Followed by [facility] specialist [facility], currently on metformin ER 500 mg daily and Ozempic injected subcutaneously once a week Orders: Orders Vitamin B12 and Folate 07/14/24 E11.9 - Type 2 diabetes mellitus without complications, E78.2 - Mixed hyperlipidemia, M79.10 - Myalgia, unspecified site, N18.9 - Chronic kidney disease, unspecified, T46.6X5A - Adverse effect of antihyperlipidemic and antiarteriosclerotic drugs, initial encounter, Z78.0 - Asymptomatic menopausal state Aspartate Amino Transferase 07/14/24 E11.9 - Type 2 diabetes mellitus without complications, E78.2 - Mixed hyperlipidemia, M79.10 - Myalgia, unspecified site, N18.9 - Chronic kidney disease, unspecified, T46.6X5A - Adverse effect of antihyperlipidemic and antiarteriosclerotic drugs, initial encounter, Z78.0 - Asymptomatic menopausal state Creatine Kinase Total 07/14/24 M79.10 - Myalgia, unspecified site, T46.6X5A - Adverse effect of antihyperlipidemic and antiarteriosclerotic drugs, initial encounter Vitamin D 25-OH Total 07/14/24 E11.9 - Type 2 diabetes mellitus without complications, E78.2 - Mixed hyperlipidemia, M79.10 - Myalgia, unspecified site, N18.9 - Chronic kidney disease, unspecified, T46.6X5A - Adverse effect of antihyperlipidemic and antiarteriosclerotic drugs, initial encounter, Z78.0 - Asymptomatic menopausal state Lipid Panel 07/14/24 E11.9 - Type 2 diabetes mellitus without complications, E78.2 - Mixed hyperlipidemia, M79.10 - Myalgia, unspecified site, N18.9 - Chronic kidney disease, unspecified, T46.6X5A - Adverse effect of antihyperlipidemic and antiarteriosclerotic drugs, initial encounter, Z78.0 - Asymptomatic menopausal state Alanine Aminotransferase 07/14/24 E11.9 - Type 2 diabetes mellitus without complications, E78.2 - Mixed hyperlipidemia, M79.10 - Myalgia, unspecified site, N18.9 - Chronic kidney disease, unspecified, T46.6X5A - Adverse effect of antihyperlipidemic and antiarteriosclerotic drugs, initial encounter, Z78.0 - Asymptomatic menopausal state Medications: Changed From cyanocobalamin (vitamin B-12) 1,000 mcg IM Q4W 90 days 4 mL 3RF To cyanocobalamin (vitamin B-12) 1,000 mcg IM Q OTHER DAY From atorvastatin 20 mg PO DAILY 90 tabs 1RF To atorvastatin 20 mg PO Q2D 3 months 45 tabs 1RF
--- OUTSIDE RECORDS SUMMARY | 2024-04-13 10:14 | XMS_ITS | Encounter Summary ---
Author Organization [facility] Address [address] [address] Phone Care Team Providers Care Sales Representative Adding Machines Name Role Phone Beth Enrique MD Primary Care Provider [phone]- [phone] Reason for Visit * Reason Comments Chronic Kidney Disease Encounter Details Date Type Department Care Team ([facility] st Contact Info) Description 04/06/2024 11:30 AM EST Office Visit [facility] 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 Social History Tobacco Use Types Packs/Day Years Used Date Smoking Tobacco: Never Smokeless Tobacco: Never Alcohol Use Standard Drinks/Week Comments No 0 (1 standard drink = 0.6 oz pur e alcohol) Comments Unknown Sex and Gender Information Value Date Recorded Sex Assigned at Not on file Legal Sex Female 5:11 PM EST Gender Identity Not on file Sexual Orientation Not on file documented as of this encounter Last Filed Vital Signs Vital Sign Reading Time Taken Comments Blood Pressure 118/60 04/06/2024 12:08 PM EST Pulse 67 04/06/2024 11:40 AM EST Temperature - - Respiratory Rate - - Oxygen Saturation 96% 04/06/2024 11:40 AM EST Inhaled Oxygen Concentration - - Weight 86.2 kg (190 lb) 04/06/2024 11:40 AM EST Height - - Body Mass Index 29.76 07/25/2021 2:38 PM EDT documented in this encounter Patient Instructions * Patient Instructions* Hazel Greer ARNP - 04/06/2024 11:30 AM EST Blood pressure monitoring education: Monitor home blood pressure values after sitting for 5 minutes with back and arm support. Keep a log. Bring your log and blood pressure cuff to your next visit. documented in this encounter Progress Notes * aHzel Greer ARNP - 04/06/2024 11:30 AM EST Images from the original note were not included. Patient Name: Luly Mehta, Female Date of : 1940, 83 y.o. Date: 04/06/2024 Orders Placed This Encounter PTH, intact Renal function panel CBC Urine Protein / creatinine ratio Urine Albumin / Creatinine Ratio Magnesium DISCONTD: Blood Pressure Monitoring (Omron 3 Series BP Monitor) device cholecalciferol (VITAMIN D-3) 25 MCG (1000 UT) capsule History of Present Illness Luly Mehta is a 83 y.o. female here for follow up for CKD Stg 3b with HTN, NIDDM and Anemia. Tried on Farxiga by her PCP however stopped in Jan 2023 due to increased urinary frequency and yeast infections, insulin was increased as an alternative. Last documented HgbA1c was 9.1 back in 04/2022. Uric acid elevated a bit at 8.1 in 04/2022, denies gout symptoms or having h/o gout. She is on Ozempic injections since Jan 2024. The following portions of the patient's chart were reviewed in this encounter and updated as appropriate: Allergies Meds Problems Med Hx Surg Hx Fam Hx Review of Systems Constitutional: Negative for chills, fever, weight gain and weight loss. HENT: Negative for nosebleeds. Eyes: Negative for blurred vision and double vision. Respiratory: Negative for cough and shortness of breath. Cardiovascular: Negative for chest pain, palpitations and leg swelling. Gastrointestinal: Negative for abdominal pain, diarrhea, nausea, vomiting and poor appetite. Genitourinary: Negative for dysuria, flank pain, frequency, hematuria and urgency. Musculoskeletal: Negative. Skin: Negative for rash. Neurological: Negative for dizziness, tingling, numbness and headaches. Endo/Heme/Allergies: Does not bruise/bleed easily. Psychiatric/Behavioral: Negative. Medication List Current Outpatient Medications Medication Sig Dispense Refill aspirin (ST ELVIS) 81 MG EC tablet Take 1 tablet by mouth 1 (one) time each day atorvastatin (LIPITOR) 20 MG tablet BD Insulin Syringe U/F 31G X 16 1 ML misc carvedilol (COREG) 12.5 MG tablet Take 12.5 mg by mouth in the morning and 12.5 mg in the evening. Take with meals. [START ON 04/11/2024] cholecalciferol (VITAMIN D-3) 25 MCG (1000 UT) capsule Take 1 capsule (1,000 Units total) by mouth 3 (three) times a week 12 capsule 5 cyanocobalamin (VITAMIN B-12) 1000 MCG/ML injection ezetimibe (ZETIA) 10 MG tablet furosemide (LASIX) 20 MG tablet gabapentin (NEURONTIN) 300 MG capsule HumaLOG 100 UNIT/ML injection INJECT 2 48 UNITS SUBCUTANEOUSLY THREE TIMES A DAY BEFORE MEALS Lantus 100 UNIT/ML injection INJECT 85 90 UNITS AT BEDTIME metFORMIN (FORTAMET) 500 MG 24 hr tablet Take 500 mg by mouth 1 (one) time each day with dinner Do not crush, chew, or split. OneTouch Verio test strip Semaglutide,0.25 or 0.5MG/DOS, (Ozempic, 0.25 or 0.5 MG/DOSE,) 2 MG/1.5ML solution pen-injector Inject 0.5 mg under the skin per week (Patient taking differently: Inject 1.2 mg under the skin per week) spironolactone (ALDACTONE) 25 MG tablet Take 1 tablet (25 mg total) by mouth 1 (one) time each day 90 tablet 3 Blood Pressure Monitoring (Omron 3 Series BP Monitor) device 1 Device 1 (one) time each day 1 each 0 No current facility-administered medications for this visit. Allergy List No Known Allergies Physical Exam BP 118/60 (BP Location: Left upper arm, Patient Position: Sitting, BP Cuff Size: Adult) Pulse 67 Wt 190 lb (86.2 kg) SpO2 96% BMI 29.76 kg/m?? Vitals reviewed. Constitutional: She is oriented to person, place, and time. She does not appear ill. No distress. HEENT: Mouth/Throat: Oropharynx is clear and moist. Eyes: Conjunctivae are normal. Neck: No JVD present. Cardiovascular: Normal rate and regular rhythm. No murmur heard.She exhibits no edema. Pulmonary/Chest: Effort normal and breath sounds normal. Abdominal: Soft. She exhibits no distension. There is no abdominal tenderness. Neurological: She is alert and oriented to person, place, and time. Skin: Skin is warm and dry. No rash noted. Psychiatric: She has a normal mood and affect. Her behavior is normal. Judgment normal. Labs Chemistry Lab Units 04/01/24 0000 02/02/23 0000 06/03/22 1114 04/30/22 1102 04/30/22 0000 CREATININE mg/dL 1.13* 1.14* 1.50 1.34* 1.34* BUN mg/dL 24* 22* 35* 27* 27* POTASSIUM 4.8 4.5 5.0 4.6 4.6 SODIUM 137 136* 135 138 138 CO2 mmol/L 25 CHLORIDE -- 103.0 99 101 -- ALBUMIN g/dL -- -- -- 4.5 -- EGFRNAFR 46 226 -- -- 39 EGFR mL/min/1.73m2 -- -- 34* 39* -- HEMOGLOBIN A1C % of total Hgb -- -- -- 9.1* -- WBC AUTO Thousand/uL -- -- -- 9.5 -- HEMATOCRIT % -- -- -- 44.6 44.6 HEMOGLOBIN g/dL -- -- -- 15.0 15.0 HEMOGLOBIN URINE -- -- -- TRACE* -- PLATELETS AUTO Thousand/uL -- -- -- 215 215 Bone Mineral Lab Units 04/01/24 0000 06/03/22 1114 04/30/22 1102 04/30/22 0000 CALCIUM mg/dL 10.1 10.5* 10.2 10.2 10.2 PHOSPHORUS mg/dL -- -- 3.6 3.6 PTH PG/ML 54.2 -- 68 68 VIT D 25 HYDROXY ng/mL -- -- 55 55 Urine Lab Units 04/30/22 1102 ALB MG/G CREAT UR mcg/mg creat 14 Iron Studies Lab Units 04/01/24 0000 04/30/22 1102 04/30/22 0000 IRON mcg/dL -- 81 -- FERRITIN NG/ML 258.0* 76 76.0 TIBC ug/dL 287 364 364 IRON SATURATION % 33 22 22 ASSESSMENT/PLAN: CKD Stg 3b r/t DM and HTN: Stable Creatinine 1.1, GFR 46 as of 04/01/24 Normal Lytes MA/CR slightly elevated at 27 from 14 in 2022 Rechecking this and urine for prot/creat ratio Normal bone mineralization levels including Vit D WNL in 60s Reduce Vitamin D supp to 3x/week, recheck level annually Avoid Nephrotoxins Not on ACEi/ARB Did not tolerate SGLT2i due to yeast infections Hypertension: Blood pressure remains well controlled Taking Carvedilol 12.5 mg BID, Spironolactone 25 mg QD and Furosemide 20 mg QD Target BP <120/80 No Edema No medication changes Follow low NA diet Avoid NSAIDs/Decongestant medication Anemia in CKD: Last Hgb WNL Iron studies WNL Not on iron supplementation Follow-up visit in 6 months. SANDRA Kraft Cosigned by Dallas Kaminski MD at 04/11/2024 9:04 AM EST documented in this encounter Plan of Treatment Upcoming Encounters Date Type Department Care Team (Late st Contact Info) Description 10/04/2024 10:00 AM EDT Office Visit [facility] [address] [phone] Hazel Greer ARNP [address] [phone] Scheduled Orders Name Type Priority Associated Diagnoses Orde r Schedule PTH, intact Lab Routine Hypertension Stage 3b chronic kidney disease (HCC) Expected: 09/11/2024, Expires: 10/13/2024 Renal function panel Lab Routine Hypertension Stage 3b chronic kidney disease (HCC) Expected: 09/11/2024, Expires: 10/13/2024 CBC Lab Routine Hypertension Stage 3b chronic kidney disease (HCC) Expected: 09/11/2024, Expires: 10/13/2024 Urine Protein / creatinine ratio Lab Routine Hypertension Stage 3b chronic kidney disease (HCC) Expected: 09/11/2024, Expires: 10/13/2024 Urine Albumin / Creatinine Ratio Lab Routine Hypertension Stage 3b chronic kidney disease (HCC) Expected: 09/11/2024, Expires: 10/13/2024 Magnesium Lab Routine Hypertension Stage 3b chronic kidney disease (HCC) Expected: 09/11/2024, Expires: 10/13/2024 documented as of this encounter Procedures Procedure Name Priority Date/Time Associated Diagnosis Comments EXT RESULT ENTRY Routine 04/01/2024 documented in this encounter Results * (ABNORMAL) EXT RESULT ENTRY (04/01/2024) Iron 94 UG/DL Iron Saturation (TSat) 33 % TIBC 287 ug/dL Ferritin 258.0(A) 9.0 - 150.0 NG/ML Sodium 137 137 - 147 Potassium 4.8 3.4 - 5.5 Carbon Dioxide 22 mmol/L Anion Gap 13 <=30 MMOL/L BUN 24(A) 4 - 21 mg/dL Creatinine 1.13(A) 0.50 - 1.10 mg/dL Calcium 10.1 8.7 - 10.7 mg/dL eGFR Non-Afr Slovenian 46 PTH 54.2 PG/ML Vitamin D, 1,25-Dihydroxy 62.4 pg/mL Creatinine, Urine Random 37.02 mg/dL Microalbumin Urine Random (External Result Entry) 10.0 Microalb/Creat Ratio, Ur 27.0 04/01/2024 us Historical Provider LAB BLOOD ORDERABLES Kelsey l Result documented in this encounter Visit Diagnoses Diagnosis Hypertension- Primary Stage 3b chronic kidney disease (HCC) 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
--- OUTSIDE RECORDS SUMMARY | 2024-04-13 10:14 | XMS_ITS | Encounter Summary ---
Author Organization [facility] Address [address] [place] [address] Care Team Providers Care Agency Legal Counsel Name Role Phone Cami Enrique MD Primary Care Provider [phone]- [phone] Encounter Details Date Type Department Care Team (Late st Contact Info) Description 03/23/2024 9:50 AM EST Ancillary Procedure [facility] [address] [facility] [address] [place] [address] Social History Tobacco Use Types Packs/Day Years Used Date Smoking Tobacco: Never Smokeless Tobacco: Never Alcohol Use Standard Drinks/Week Comments Not Currently 0 (1 standard drink = 0.6 oz pur e alcohol) Sex and Gender Information Value Date Recorded Sex Assigned at Not on file Gender Identity Not on file Sexual Orientation Not on file Job Start Date Occupation Industry Not on file Not on file Not on file documented as of this encounter Plan of Treatment Upcoming Encounters Date Type Department Care Team (Late st Contact Info) Description 06/30/2024 10:30 AM EDT Ancillary Procedure [facility] [address] [facility] [address] [place] [address] documented as of this encounter Procedures Procedure Name Priority Date/Time Associated Diagnosis Comments CARDIAC DEVICE CHECK- REMOTE- MURJ Routine 03/23/2024 9:48 AM EST documented in this encounter Results * Cardiac device check - Remote- MURJ (03/23/2024 9:48 AM EST) Date Time Interrogation Session [id number] CV DEVICE CHECK Type Interrogation Session Remote CV DEVICE CHECK Implantable Pulse Generator Road Freight Firer MDT CV DEVICE CHECK Implantable Pulse Generator Type WASHTUB WORKER HELPER-D CV DEVICE CHECK Implantable Pulse Generator Model Rosaia MRI Quad CRTD [id number] CV DEVICE CHECK Implantable Pulse Generator Serial Number [id number] CV DEVICE CHECK Implantable Pulse Generator Implant Date [id number] CV DEVICE CHECK Battery Remaining Longevity 99.0 CV DEVICE CHECK Battery Voltage 3.020 CV D EVICE CHECK Battery CHEMICAL PLANT WORKER Trigger 2.727 CV DEVICE CHECK Battery Status Middle of Service CV DEVICE CHECK Capacitor Charge Time 3.773 CV DEVICE CHECK Claus Statistic RA Percent Paced 3.27 CV DEVICE CHECK Claus Statistic RV Percent Paced 98.96 CV DEVICE CHECK WASHTUB WORKER HELPER Statistic LV Percent Paced 98.89 CV DEVICE CHECK WASHTUB WORKER HELPER Statistic WASHTUB WORKER HELPER Percent Paced 98.88 CV DEVICE CHECK Atrial Tachy Statistic AT/AF [place] Percent 0.00 CV DEVICE CHECK Lead Channel Sensing Intrinsic Amplitude 2.750 CV DEVICE CHECK Lead Channel Setting Sensing Sensitivity 0.30 CV DEVICE CHECK Lead Channel Impedance Value 342 CV DEVICE CHECK Lead Channel Pacing Threshold Amplitude 0.625 CV DEVICE CHECK Lead Channel Pacing Threshold Pulse Width 0.4 CV DEVICE CHECK Lead Channel RA Pacing Threshold Date 2024-03-22 CV DEVICE CHECK Lead Channel Setting Pacing Amplitude 1.500 CV DEVICE CHECK Lead Channel Setting Pacing Pulse Width 0.4 CV DEVICE CHECK Lead Channel Sensing Intrinsic Amplitude 0.750 CV DEVICE CHECK Lead Channel Setting Sensing Sensitivity 0.30 CV DEVICE CHECK Lead Channel Impedance Value 494 CV DEVICE CHECK Lead Channel Pacing Threshold Amplitude 0.625 CV DEVICE CHECK Lead Channel Pacing Threshold Pulse Width 0.4 CV DEVICE CHECK Lead Channel RV Pacing Threshold Date 2024-03-22 CV DEVICE CHECK Lead Channel Setting Pacing Amplitude 1.500 CV DEVICE CHECK Lead Channel Setting Pacing Pulse Width 0.4 CV DEVICE CHECK Lead Channel Impedance Value 513 CV DEVICE CHECK Lead Channel Pacing Threshold Amplitude 0.625 CV DEVICE CHECK Lead Channel Pacing Threshold Pulse Width 0.5 CV DEVICE CHECK Lead Channel Pacing Threshold Date 2024-03-22 CV DEVICE CHECK Lead Channel Setting Pacing Amplitude 1.250 CV DEVICE CHECK Lead Channel Setting Pacing Pulse Width 0.5 CV DEVICE CHECK Claus Setting Mode (NBG Code) DDD CV DEVICE CHECK Ventricular chambers paced during WASHTUB WORKER HELPER pacing. BiV CV DEVICE CHECK Claus Setting Lower Rate Limit 50 CV DEVICE CHECK Claus Setting AT Mode Switch Rate 171 CV DEVICE CHECK Claus Setting Maximum Tracking Rate 130 CV DEVICE CHECK Claus Setting Maximum Sensor Rate 120 CV DEVICE CHECK Claus Setting PAV Delay 170 CV DEVICE CHECK Claus Setting MARCY Delay 130 CV DEVICE CHECK WASHTUB WORKER HELPER LV-RV Delay 20 CV D EVICE CHECK Therapy Statistic Recent Shocks Delivered 0 CV DEVICE CHECK Therapy Statistic Recent Shocks Aborted 0 CV DEVICE CHECK Therapy Statistic Recent ATP Delivered 0 CV DEVICE CHECK RV HV Impedance 88 CV D EVICE CHECK Zone Setting Type Category AT/AF CV DEVICE CHECK Rate 171 CV DEVICE CHECK Therapies All Rx Off CV DEVICE CHECK Zone Setting Status Monitor CV DEVICE CHECK Zone ID 2 CV DEVICE CHECK Zone Setting Type Category VF CV DEVICE CHECK Rate 200 CV DEVICE CHECK Therapies ATP During Charging, 35Jx6 CV DEVICE CHECK Zone Setting Status On CV DEVICE CHECK Zone ID 3 CV DEVICE CHECK Zone Setting Type Category VT CV DEVICE CHECK Zone Setting Status Off CV DEVICE CHECK Zone ID 4 CV DEVICE CHECK Zone Setting Type Category VT CV DEVICE CHECK Zone Setting Status Off CV DEVICE CHECK Zone ID 5 CV DEVICE CHECK Zone Setting Type Category VT CV DEVICE CHECK Rate 150 CV DEVICE CHECK Rate 167 CV DEVICE CHECK Zone Setting Status ENABLED CV DEVICE CHECK Zone ID 6 CV DEVICE CHECK Date of Service 2024-04-18 CV DEVICE CHECK Anatomical Region Laterality Modality Device Interroga tion 03/22/2024 1:23 AM EST Impressions 03/23/2024 9:42 AM EST Heart Failure Diagnostic: Stable * Heart failure diagnostics assessed through the device * Status: Stable * No overt HF present Narrative Procedure Note Edy Herrera MD - 03/23/2024 IMPRESSION: Heart Failure Diagnostic: Stable * Heart failure diagnostics assessed through the device * Status: Stable * No overt HF present Edy Herrera MD CV IMPLANTABLE CARDI AC DEVICE PROCEDURES documented in this encounter Visit Diagnoses Not on filedocumented in this encounter Care Teams Agency Legal Counsel Relationship Specialty Start Date End Date Cami Enrique MD [address] [place] [address] PCP - General 09/27/14 documented as of this encounter
--- OUTSIDE RECORDS SUMMARY | 2024-04-13 10:14 | XMS_ITS | Clinical Summary ---
Author Organization [facility] Address [address] [phone] Phone Care Team Providers Care [employer] Equipment Operator Name Role Phone Beth Enrique MD Primary Care Provider [phone]- [phone] Allergies No known active allergies Medications aspirin (ST ELVIS) 81 MG EC tablet Take 1 tablet by mouth 1 (one) time each day Active atorvastatin (LIPITOR) 20 MG tablet 021 Active carvedilol (COREG) 12.5 MG tablet Take 12.5 mg by mouth in the morning and 12.5 mg in the evening. Take with meals. Active cyanocobalami n (VITAMIN B-12) 1000 MCG/ML injection 021 Active ezetimibe (ZETIA) 10 MG tablet 021 Active furosemide (LASIX) 20 MG tablet 021 Active Lantus 100 UNIT/ML injection INJECT 85 90 UNITS AT BEDTIME 021 Active HumaLOG 100 UNIT/ML injection INJECT 2 48 UNITS SUBCUTANEOUSLY THREE TIMES A DAY BEFORE MEALS 021 Active gabapentin (NEURONTIN) 300 MG capsule 021 Active OneTouch Verio test strip 021 Active BD Insulin Syringe U/F 31G X 07/29 1 ML misc 021 Active Semaglutide,0 .25 or 0.5MG/DOS, (Ozempic, 0.25 or 0.5 MG/DOSE,) 2 MG/1.5ML solution pen-injector Inject 0.5 mg under the skin per week Active metFORMIN (FORTAMET) 500 MG 24 hr tabletIndicat ions:Type 2 Diabetes Mellitus Take 500 mg by mouth 1 (one) time each day with dinner Do not crush, chew, or split. Active spironolacton e (ALDACTONE) 25 MG tabletIndicat ions:Avery olvera,Stage 3b chronic kidney disease (HCC) Take 1 tablet (25 mg total) by mouth 1 (one) time each day 90 tablet 3 024 2024 Active Blood Pressure Monitoring (Omron 3 Series BP Monitor) deviceIndicat ions:Avery olvera,Stage 3b chronic kidney disease (HCC) 1 Device 1 (one) time each day 1 each 025 Active cholecalcifer ol (VITAMIN D-3) 25 MCG (1000 UT) capsule Take 1 capsule (1,000 Units total) by mouth 3 (three) times a week 12 capsule 5 025 2024 Active cholecalcifer ol (VITAMIN D-3) 25 MCG (1000 UT) capsule Take 1 capsule by mouth 1 (one) time each day 2024 Discontinued Blood Pressure Monitoring (Omron 3 Series BP Monitor) deviceIndicat ions:Avery olvera,Stage 3b chronic kidney disease (HCC) 1 Device 1 (one) time each day 1 each 025 2024 Discontinued(R eorder (does not appear on AVS)) Active Problems Problem Noted Date Diagnosed Date Vitamin D deficiency due to chronic kidney disea se 04/10/2024 Stage 3b chronic kidney disease 03/25/2023 Pacemaker status 03/25/2023 Cardiac defibrillator status 03/25/2023 Overview (03/25/2023): Turbine Engineer is Dr. Bryson at [facility] Diabetes mellitus 07/25/2020 Hypertensive heart disease without congestive he art failure 07/25/2020 Hypertension 07/25/2020 Resolved Problems Problem Noted Date Diagnosed Date Resolved Date Chronic kidney disease stage 2 07/25/2020 03/25/2023 Hypertensive disorder 07/25/20202023 Serum creatinine above reference range 07/25/2020 03/25/2023 Chronic kidney disease, stage 2 (mild) 07/25/2020 03/25/2023 Encounters Date Type Department Care Team Description 04/10/2024 Office Communication [facility] 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 04/06/2024 Refill [facility] [address] [phone] [place] Denise Hypertension; Stage 3b chronic kidney disease (HCC) from Last 3 Months Family History Medical History Relation Comments Cancer Child daughter-left br east Dementia Mother Alzheimers Diabetes Mother Heart disease Mother Hypertension Mother Relation Status Comments Child Father Mother Social History Tobacco Use Types Packs/Day Years Used Date Smoking Tobacco: Never Smokeless Tobacco: Never Tobacco Cessation:Counseling Given: No Alcohol Use Standard Drinks/Week Comments No 0 (1 standard drink = 0.6 oz pur e alcohol) Comments Unknown Sex and Gender Information Value Date Recorded Sex Assigned at Not on file Legal Sex Female 5:11 PM EST Gender Identity Not on file Sexual Orientation Not on file Last Filed Vital Signs Vital Sign Reading Time Taken Comments Blood Pressure 118/60 04/06/2024 12:08 PM EST Pulse 67 04/06/2024 11:40 AM EST Temperature - - Respiratory Rate - - Oxygen Saturation 96% 04/06/2024 11:40 AM EST Inhaled Oxygen Concentration - - Weight 86.2 kg (190 lb) 04/06/2024 11:40 AM EST Height 170.2 cm (5' 7 ) 07/25/2021 2:38 PM EDT Body Mass Index 29.76 07/25/2021 2:38 PM EDT Plan of Treatment Upcoming Encounters Date Type Department Care Team (Late st Contact Info) Description 10/04/2024 10:00 AM EDT Office Visit [facility] [address] [place] [phone] Hazel Greer ARNP [address] [phone] Health Maintenance Due Date Last Done Comments Pneumococcal Vaccine: 65+ Years (1 of 2 - PCV) 1946 Diabetes: Ophthalmology Exam 04/16/2020 Diabetes: Pedal Pulse Checked 04/16/2020 Diabetes: Sensory Foot Exam 04/16/2020 Diabetes: Visual Foot Exam 04/16/2020 Diabetes: Hemoglobin A1C 07/28/2022 023, 01/10/2020, 06/09/2018 Influenza Vaccine (#1) 2023 Hepatitis B Vaccine Aged Out No longe r eligible based on patient's age to complete this topic Procedures Procedure Name Priority Date/Time Associated Diagnosis Comments EXT RESULT ENTRY Routine 04/01/2024 HEMOGLOBIN A1C Routine 04/30/2022 11:02 AM EST from Last 3 Months or Most Recently Relevant to Health Maintenance Results * (ABNORMAL) EXT RESULT ENTRY (04/01/2024) Iron 94 UG/DL Iron Saturation (TSat) 33 % TIBC 287 ug/dL Ferritin 258.0(A) 9.0 - 150.0 NG/ML Sodium 137 137 - 147 Potassium 4.8 3.4 - 5.5 Carbon Dioxide 22 mmol/L Anion Gap 13 <=30 MMOL/L BUN 24(A) 4 - 21 mg/dL Creatinine 1.13(A) 0.50 - 1.10 mg/dL Calcium 10.1 8.7 - 10.7 mg/dL eGFR Non-Afr Jordanian 46 PTH 54.2 PG/ML Vitamin D, 1,25-Dihydroxy 62.4 pg/mL Creatinine, Urine Random 37.02 mg/dL Microalbumin Urine Random (External Result Entry) 10.0 Microalb/Creat Ratio, Ur 27.0 04/01/2024 us Historical Provider LAB BLOOD ORDERABLES Kelsey l Result * (ABNORMAL) Hemoglobin A1c (04/30/2022 11:02 AM EST) Hemoglobin A1C 9.1(H) <5.7 % of total Hgb [facility] Comment: For someone without known diabetes, a hemoglobin A1c value of 6.5% or greater indicates that they may have diabetes and this should be confirmed with a follow-up test. For someone with known diabetes, a value <7% indicates that their diabetes is well controlled and a value greater than or equal to 7% indicates suboptimal control. A1c targets should be individualized based on duration of diabetes, age, comorbid conditions, and other considerations. Currently, no consensus exists regarding use of hemoglobin A1c for diagnosis of diabetes for children. 04/30/2022 11:0 2 AM EST 04/30/2022 11:04 AM EST Narrative [facility] - 05/01/2022 5:23 AM EST FASTING:NO FASTING: NO Edgar Grewal MD LAB BLOOD ORDERABLES Final Re sult [facility] from Last 3 Months or Most Recently Relevant to Health Maintenance Insurance [employer] ([id number]) [employer] [facility] ([id number]) Care Teams [employer] Equipment Operator Relationship Specialty Start Date End Date Beth Enrique MD [address] [place] [phone] PCP - General 03/26/20
--- OUTSIDE RECORDS SUMMARY | 2024-04-13 10:14 | XMS_ITS | Encounter Summary ---
Author Organization [facility][1] Address [address] [address] Phone Care Team Providers Care Director Software Quality Assurance Name Role Phone Beth Enrique MD Primary Care Provider +1- [phone] Encounter Details Date Type Department Care Team (Late Contact Info) Description 04/10/2024 Office Communication [facility] [address] [place] [address] Hazel Greer ARNP [address] [address] Social History Tobacco Use Types Packs/Day Years [...] Encounters Date Type Department Care Team (Late Contact Info) Description 10/04/2024 10:00 AM EDT Office Visit [facility] [address] [address] Hazel Greer ARNP [address] [address] documented as of this encounter Visit Diagnoses Not on filedocumented in this encounter Care Teams Director Software Quality Assurance Relationship Specialty Start Date End Date Beth Enrique MD [address] [place] [address] PCP - General 03/26/20 documented as of this encounter
--- OUTSIDE RECORDS SUMMARY | 2024-04-13 10:14 | XMS_ITS | Encounter Summary ---
Author Organization [facility] Address [address] [place] [address] Phone Care Team Providers Care Paperboard Boxes Estimator Name Role Phone Beth Enrique MD Primary Care Provider +1- [phone] Reason for Visit * Reason Onset Date Comments RX refill 10/09/2021 Encounter Details Date Type Department Care Team (Late st Contact Info) Description 10/09/2021 Telephone [facility] [address] [place] [address] Aniya Mcallister RX refill Social History Tobacco Use Types Packs/Day Years [...] on file documented as of this encounter Miscellaneous Notes * Telephone Encounter - Hazel Guidry - 10/10/2021 10:11 AM EDT Rx in que * Telephone Encounter - Aniya Mcallister - 10/09/2021 10:01 AM EDT Pt called needing a refill on her Dapagliflozin-Metformin [facility] ER. Says she has been trying to get it for a week and is almost out so if it could please be sent today. documented in this encounter Plan of Treatment Upcoming Encounters Date Type Department Care Team (Late st Contact Info) Description 10/04/2024 10:00 AM EDT Office Visit [facility] 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
--- OUTSIDE RECORDS SUMMARY | 2024-04-13 10:14 | XMS_ITS | Clinical Summary ---
Author Organization [address] [place] [address] Address [address] [place] [address] Phone Care Team Providers Care Malt House Operator Name Role Phone Cami Enrique MD Primary Care Provider +1- [phone] Allergies No known active allergies Medications Medication Sig Dispensed Refills Start Date End Date Status carvediloL (COREG) 12.5 mg tablet TAKE 1 TABLET BY MOUTH TWICE A DAY 11/17/2023 Active gabapentin (NEURONTIN) 300 mg capsule Take 1 Capsule by mouth at bedtime. Active furosemide (LASIX) 20 mg tablet Take 1 Tablet by mouth every other day. 05/07/2023 Active aspirin 81 mg EC tablet Take 1 tablet by mouth daily. Active cholecalciferol (VITAMIN D-3) 25 mcg (1,000 unit) capsule Take 1 capsule by mouth daily. Active dulaglutide (Trulicity) 0.75 mg/0.5 mL pen injector injection Inject 1 Dose into the skin once a week. 07/13/2020 Active atorvastatin (LIPITOR) 20 mg tablet Take 20 mg by mouth daily. Active cyanocobalamin (VITAMIN B-12) 1,000 mcg tablet Take 1,000 mcg by mouth. Active ezetimibe (ZETIA) 10 mg tablet Take 10 mg by mouth daily. Active insulin glargine,hum.rec.anlog (INSULIN GLARGINE SUBQ) Inject 82 Units into the skin at bedtime. Active INSULIN LISPRO SUBQ Inject into the skin. Sliding scale Active spironolactone (ALDACTONE) 25 mg tablet Take 25 mg by mouth daily. Active Active Problems Problem Noted Date Diagnosed Date Hyperlipidemia associated with type 2 diabetes valarie rahman 04/30/2022 Chronic heart failure with preserved ejection fr action 11/13/2021 Nonrheumatic mitral valve regurgitation 11/14/19 Sick sinus syndrome 11/13/2021 Essential hypertension 10/15/2020 Overview (02/25/2024): Hypertensive disorder Atherosclerotic heart disease 10/11/2020 Dyslipidemia 10/11/2020 Ischemic cardiomyopathy 10/11/2020 Pacemaker 10/11/2020 Type 2 diabetes mellitus, wi thout long-term current use of insulin 10/11/2020 Hypertensive heart disease without congestive he art failure 07/25/2020 Serum creatinine raised 07/25/2020 Stage 2 chronic kidney disease 07/25/2020 Encounters Date Type Department Care Team Description 03/23/2024 9:50 AM EST Ancillary Procedure [facility] [address] [place] [address] 02/24/2024 2:35 PM EST Ancillary Procedure [facility] [address] [place] [address] 01/26/2024 5:35 PM EST Ancillary Procedure [facility] [address] [place] [address] 01/18/2024 6:30 PM EST Ancillary Procedure [facility] [address] [place] [address] from Last 3 Months Surgical History Surgery Date Site/Laterality Comments CATARACT EXTRACTION PROCEDURE: HISTORICAL CATARACT REMOVAL BREAST LUMPECTOMY PROCEDURE: HISTORICAL BREAST LUMPECTOMY OTHER SURGICAL HISTORY PROCEDURE: HISTORY OTHER; COMMENT: S/P placement of cardiac pacemaker OTHER SURGICAL HISTORY PROCEDURE: HISTORY OTHER; COMMENT: S/P JOSELITO-BSO Medical History Medical History Date Comments History of sick sinus syndrome D X:History of sick sinus syndrome Postmenopause DX:Postmenopause Family History Medical History Relation Name Comments No Known Problems Father No Known Problems Mother Relation Name Status Comments Father Mother Social History Tobacco Use Types [...] file Not on file Not on file Obstetrics History Last Filed Vital Signs Vital Sign Reading Time Taken Comments Blood Pressure 132/76 05/07/2023 12:46 PM EST Sitting L Arm Pulse 65 05/07/2023 12:46 PM EST Temperature - - Respiratory Rate - - Oxygen Saturation - - Inhaled Oxygen Concentration - - Weight 87.8 kg (193 lb 9.6 oz) 05/07/2023 12:46 PM EST Height 177.8 cm (5' 10 ) 05/07/2023 12: 46 PM EST Body Mass Index 27.78 05/07/2023 12:46 PM EST Plan of Treatment Upcoming Encounters Date Type Department Care Team (Late st Contact Info) Description 06/30/2024 10:30 AM EDT Ancillary Procedure [facility] [address] [facility] [address] [place] [address] Health Maintenance Due Date Last Done Comments Diabetes: Annual GFR (Glomerular Filtration Rate) 1938 Diabetes: Annual Foot Exam 1948 Diabetes: Annual Retina Eye Exam 1948 DTaP,Tdap,and Td Vaccines (1 - Tdap) 1957 Zoster Vaccines (1 of 2) 1957 RSV Immunization Patients 60+ Years Old (1 - 1-dose 75+ series) 2013 Cholesterol Screening (Lipid Panel) 02/22/2022 Depression Screening 02/22/2022 Falls Risk Assessment 02/22/2022 Medicare Annual Wellness Visit 02/22/2022 Osteoporosis Screening (Bone Density Screening) 02/22/2022 Social Influencers of Health Screening 02/22/2022 Hypertension/CHF/CAD Annual BMP Blood Test 02/23/2022 Diabetes: Annual Urine Albumin-Creatinine Ratio (uACR) 02/26/2022 Diabetes: Blood Sugar Control Test (HGBA1C) 10/28/2022 04/30/2022 COVID-19 Vaccine ( season) 2023 02/20/2023, 07/06/2021, 12/21/2020 Influenza Vaccine (#1) 2023 3, 12/16/2019, 11/23/2019, Additional history exists Pneumococcal Vaccine: 65+ Years Completed 02/25/2022, 12/05/2015 HIB Vaccines Aged Out No longer eligi ble based on patient's age to complete this topic HPV Vaccines Aged Out No longer eligi ble based on patient's age to complete this topic Hepatitis A Vaccines Aged Out No long er eligible based on patient's age to complete this topic Hepatitis B Vaccines Aged Out No long er eligible based on patient's age to complete this topic IPV Vaccines Aged Out No longer eligi ble based on patient's age to complete this topic MMR Vaccines Aged Out No longer eligi ble based on patient's age to complete this topic Meningococcal ACWY Vaccine Aged Out N o longer eligible based on patient's age to complete this topic RSV Immunization Patients Under 20 months Aged Out No longer eligible based on patient's age to complete this topic Varicella Vaccines Aged Out No longer eligible based on patient's age to complete this topic Medical Devices Implanted Type Area Nail Machine Operator Device Identifier Shelf Expiration Date Model / Serial / Lot Medt-Card Claria Mri Quad Crtd [id number] Implanted:05/15 (Quantity not on file) Cardiac CERTIFIED BREASTFEEDING EDUCATOR-D ICD MED[employer] - CARDIAC RHYTH-CRDM CLARIA MRI QUAD CRTD [id number] / [id number] / Procedures Procedure Name Priority Date/Time Associated Diagnosis Comments CARDIAC DEVICE CHECK- REMOTE- MURJ Routine 03/23/2024 9:48 AM EST CARDIAC DEVICE CHECK- REMOTE- MURJ Routine 02/24/2024 2:32 PM EST CARDIAC DEVICE CHECK- REMOTE- MURJ Routine 01/26/2024 5:32 PM EST CARDIAC DEVICE CHECK- REMOTE- MURJ Routine 01/18/2024 6:25 PM EST from Last 3 Months Results * Cardiac device check - Remote- MURJ (03/23/2024 9:48 AM EST) Only the most recent of4 resultswithin the time period is included. [facility] Date Time Interrogation Session [id number] CV DEVICE CHECK Type Interrogation Session Remote CV DEVICE CHECK Implantable Pulse Generator Nail Machine Operator MDT CV DEVICE CHECK Implantable Pulse Generator Type CERTIFIED BREASTFEEDING EDUCATOR-D CV DEVICE CHECK Implantable Pulse Generator Model Rosaia MRI Quad CRTD [id number] CV DEVICE CHECK Implantable Pulse Generator Serial Number [id number] CV DEVICE CHECK Implantable Pulse Generator Implant Date [id number] CV DEVICE CHECK Battery Remaining Longevity 99.0 CV DEVICE CHECK Battery Voltage 3.020 CV D EVICE CHECK Battery CALCINE FURNACE TENDER Trigger 2.727 CV DEVICE CHECK Battery Status Middle of Service CV DEVICE CHECK Capacitor Charge Time 3.773 CV DEVICE CHECK Claus Statistic RA Percent Paced 3.27 CV DEVICE CHECK Claus Statistic RV Percent Paced 98.96 CV DEVICE CHECK CERTIFIED BREASTFEEDING EDUCATOR Statistic LV Percent Paced 98.89 CV DEVICE CHECK CERTIFIED BREASTFEEDING EDUCATOR Statistic CERTIFIED BREASTFEEDING EDUCATOR Percent Paced 98.88 CV DEVICE CHECK Atrial Tachy Statistic AT/AF [place] Percent 0.00 CV DEVICE CHECK Lead Channel [...] CV DEVICE CHECK Ventricular chambers paced during CERTIFIED BREASTFEEDING EDUCATOR pacing. BiV CV DEVICE CHECK Claus Setting Lower Rate Limit 50 CV DEVICE CHECK Claus Setting AT Mode Switch Rate 171 CV DEVICE CHECK Claus Setting Maximum Tracking Rate 130 CV DEVICE CHECK Claus Setting Maximum Sensor Rate 120 CV DEVICE CHECK Claus Setting PAV Delay 170 CV DEVICE CHECK Claus Setting MARCY Delay 130 CV DEVICE CHECK CERTIFIED BREASTFEEDING EDUCATOR LV-RV Delay 20 CV D EVICE CHECK [...] MD CV IMPLANTABLE CARDI AC DEVICE PROCEDURES from Last 3 Months Care Teams Malt House Operator Relationship Specialty Start Date End Date Cami Enrique MD [address] [place] [address] PCP - General 09/27/14
--- OUTSIDE RECORDS SUMMARY | 2024-04-13 10:14 | XMS_ITS | Encounter Summary ---
Author Organization [facility] Address [address] [address] Phone Care Team Providers Care Digital Marketing Program Manager Name Role Phone Beth Enrique MD Primary Care Provider +1- [phone] Reason for Visit * Reason Onset Date Comments Med Refill 04/06/2024 Encounter Details Date Type Department Care Team (Late st Contact Info) Description 04/06/2024 Refill [facility] [address] [address] [place] Denise [address] [address] Hypertension; Stage 3b chronic kidney disease (HCC) Social History Tobacco Use Types Packs/Day Years [...] Office Visit [facility] [address] [address] Hazel Greer ARNP [address] [address] documented as of this encounter Visit Diagnoses Diagnosis Hypertension Stage 3b chronic kidney disease (HCC) documented in this encounter Care Teams Digital Marketing Program Manager Relationship Specialty Start Date End Date Beth Enrique MD [facility] [address] PCP - General 03/26/20 documented as of this encounter
--- OUTSIDE RECORDS SUMMARY | 2024-04-13 10:14 | XMS_ITS | Encounter Summary ---
Author Organization [facility] Address [address] [facility] [address] [place] [address] Phone Care Team Providers Care Hand Spring Repairer Name Role Phone Beth Enrique MD Primary Care Provider +1- [phone] Encounter Details Date Type Department Care Team (Late st Contact Info) Description 09/23/2023 Office Communication [facility] [address] [facility] [address] [place] [address] Hazel Greer ARNP [address] [facility] [address] [place] [address] Social History Tobacco Use Types Packs/Day [...] Miscellaneous Notes * Telephone Encounter - Hazel Greer ARNP - 09/29/2023 3:21 PM EDT Sending Rx now, thx * Telephone Encounter - Calvin Griffin - 09/29/2023 12:02 PM EDT Pt called for a refill on Disp Refills Start End ANGELITA spironolactone (ALDACTONE) 25 MG tablet 90 tablet 11 07/02/2022 07/02/2023 No Sig - Route: Take 1 tablet (25 mg total) by mouth 1 (one) time each day - Oral Sent to pharmacy as: Spironolactone 25 MG Oral Tablet (ALDACTONE) documented in this encounter Plan of Treatment Upcoming Encounters Date Type Department Care Team (Late st Contact Info) Description 10/04/2024 10:00 AM EDT [facility] Visit [facility] [address] [address] Hazel Greer ARNP [address] [address] documented as of this encounter Visit Diagnoses Not on filedocumented in this encounter Care Teams Hand Spring Repairer Relationship Specialty Start Date End Date Beth Enrique MD [address] [place] [address] PCP - General 03/26/20 documented as of this encounter
== END 2024-04-13 10:50 | disposition home or self-care (01) ==
PROVIDERS: PCP Internal Medicine; Visit Provider Internal Medicine
DX: E78.2 Mixed hyperlipidemia (principal); N18.9 Chronic kidney disease, unspecified; E11.3293 Type 2 diabetes mellitus with mild nonproliferative diabetic retinopathy without macular edema, bilateral; Z79.4 Long term (current) use of insulin

== ENCOUNTER → 2024-04-13 09:00 | Outpatient (BNVA) | payer MEDICARE, SELFPAY | PROVIDERS: PCP Internal Medicine; Visit Provider Internal Medicine | DX: E78.2 Mixed hyperlipidemia (principal); N18.9 Chronic kidney disease, unspecified; E11.3293 Type 2 diabetes mellitus with mild nonproliferative diabetic retinopathy without macular edema, bilateral; Z79.4 Long term (current) use of insulin | CPT/HCPCS: 96127; 99212 ==

== ENCOUNTER 2024-07-21 08:49 | Outpatient (REF) | payer MEDICARE, SELFPAY ==
--- OUTSIDE RECORDS SUMMARY | 2024-07-21 09:10 | XMS_ITS | Encounter Summary ---
Author Organization [facility] Address [address] [facility] [address] [place] [address] Phone Care Team Providers Care Sanitation Truck Cleaner Name Role Phone Beth Enrique MD Primary Care Provider +1- [phone] Encounter Details Date Type Department Care Team (Late st Contact Info) Description 09/23/2023 Office Communication [facility] [address] [facility] [address] [place] [address] Hazel Greer ARNP [address] [facility] [address] [place] [address] Social History Tobacco Use Types [...] Care Team (Late st Contact Info) Description 10/18/2024 10:00 AM EDT [facility] [address] [address] Hazel Greer ARNP [address] [address] documented as of this encounter Visit Diagnoses Not on filedocumented in this encounter Care Teams Sanitation Truck Cleaner Relationship Specialty Start Date End Date Beth Enrique MD [address] [place] [address] PCP - General 03/26/20 documented as of this encounter
--- OUTSIDE RECORDS SUMMARY | 2024-07-21 09:10 | XMS_ITS | Clinical Summary ---
Author Organization [address] [place] [address] Address [address] [place] [address] Phone Care Team Providers Care Set Up Mechanic Automatic Line Name Role Phone Cami Enrique MD Primary Care Provider [phone]- [phone] Allergies No known active allergies Medications carvediloL (COREG) 12.5 mg tablet TAKE 1 [...] Take 1 capsule by mouth daily. Active atorvastatin (LIPITOR) 20 mg tablet Take 20 mg by mouth daily. Active cyanocobalamin (VITAMIN B-12) 1,000 mcg tablet Take 1,000 mcg by mouth. Active ezetimibe (ZETIA) 10 mg tablet Take 10 mg by mouth daily. Active insulin glargine,hum.re c.anlog (INSULIN GLARGINE SUBQ) Inject 82 Units into the skin at bedtime. Active INSULIN LISPRO SUBQ Inject into the skin. Sliding scale Active spironolactone (ALDACTONE) 25 mg tablet Take 25 mg by mouth daily. Active semaglutide (OZEMPIC SUBQ) Inject under the skin. Active metFORMIN (GLUCOPHAGE) 500 mg tablet Take 1 tablet (500 mg total) by mouth 1 (one) time each day with breakfast. Active Active Problems Problem Noted Date Diagnosed Date Diastolic dysfunction 06/07/2024 Hyperlipidemia associated wi th type 2 diabetes mellitus (CMS/HCC V24, [facility] [place] 04/30/2022 Heart failure with recovered ejection fraction (HFrecEF) ([facility], [facility]) 11/13/2021 Nonrheumatic mitral valve regurgitation 11/14/19 Sick sinus syndrome ([facility], [facility]) 0 11/13/2021 Essential hypertension 10/15/2020 Overview (02/25/2024): Hypertensive disorder Atherosclerotic heart disease 10/11/2020 Dyslipidemia 10/11/2020 Pacemaker 10/11/2020 Type 2 diabetes mellitus, wi thout long-term current use of insulin ([facility], [facility] V[facility]) 10/11/2020 Hypertensive heart disease without congestive he art failure 07/25/2020 Serum creatinine raised 07/25/2020 Stage 2 chronic kidney disease 07/25/2020 Encounters Date Type Department Care Team Description 06/21/2024 6:45 PM EDT Ancillary Procedure [facility] [address] [facility] [address] [place] [address] 06/07/2024 10:30 AM EDT Ancillary Procedure [facility] [place] [address] [facility] [address] [place] [address] Encounter for adjustment or management of cardiac device 06/07/2024 9:40 AM EDT Office Visit [facility] [address] [facility] [address] [place] [address] Eun Wilks NP Ischemic cardiomyopathy (Primary Dx); Nonrheumatic mitral valve regurgitation; Sick sinus syndrome ([facility], [facility]) 05/04/2024 2:25 PM EST Ancillary Procedure [facility] [address] [facility] [address] [place] [address] from Last 3 Months Surgical History Surgery [...] at Not on file Legal Sex Female 2:53 PM EST Gender Identity Not on file Sexual Orientation Not on file Obstetrics History Last Filed Vital Signs Vital Sign Reading Time Taken Comments Blood Pressure 124/60 06/07/2024 9:25 AM EDT Pulse 54 06/07/2024 9:25 AM EDT Temperature - - Respiratory Rate - - Oxygen Saturation 96% 06/07/2024 9:25 AM EDT Inhaled Oxygen Concentration - - Weight 85.7 kg (189 lb) 06/07/2024 9:25 AM EDT Height 170.2 cm (5' 7 ) 06/07/2024 9:25 AM EDT Body Mass Index 29.6 06/07/2024 9:25 AM EDT Plan of Treatment Upcoming Encounters Date Type Department Care Team (Late st Contact Info) Description 08/22/2024 10:30 AM EDT Ancillary Procedure [facility] Card[facility] [address] [place] [address] 06/07/2025 10:00 AM EDT Ancillary Procedure [facility] [address] [facility] [address] [place] [address] Health Maintenance Due Date Last Done Comments Diabetes: Annual GFR (Glomerular Filtration Rate) 1938 Diabetes: Annual Foot Exam 1948 Diabetes: Annual Retina Eye Exam 1948 DTaP,Tdap,and Td Vaccines (1 - Tdap) 1957 Zoster Vaccines (1 of 2) 1957 RSV Immunization Adult Patients (1 - 1-dose 75+ series) 2013 Cholesterol Screening (Lipid Panel) 02/22/2022 Depression Screening 02/22/2022 Falls Risk Assessment 02/22/2022 Medicare Annual Wellness Visit 02/22/2022 Osteoporosis Screening (Bone Density Screening) 02/22/2022 Social Influencers of Health Screening 02/22/2022 Hypertension/CHF/CAD Annual BMP Blood Test 02/23/2022 Diabetes: Annual Urine Albumin-Creatinine Ratio (uACR) 02/26/2022 Diabetes: Blood Sugar Control Test (HGBA1C) 10/28/2022 04/30/2022 COVID-19 Vaccine (7 - Pfizer risk season) 2024 12/10/2023, 02/20/2023, 07/06/2021, Additional history exists Pneumococcal Vaccine: 50+ Years Completed 02/25/2022, 12/05/2015 Influenza Vaccine Completed 12/10/2023, , 12/05/2021, Additional history exists HIB Vaccines Aged Out No longer eligi [...] patient's age to complete this topic Meningococcal B Vaccine Aged Out No l onger eligible based on patient's age to complete this topic RSV Immunization Patients Under 20 months Aged Out No longer eligible based on patient's age to complete this topic Varicella Vaccines Aged Out No longer eligible based on patient's age to complete this topic Medical Devices Implanted Type Area Lining Stuffer Device Identifier Shelf Expiration Date Model / Serial / Lot Medt-Card Claria Mri Quad Crtd [id number] Implanted:05/15 (Quantity not on file) Cardiac HOOKER INSPECTOR-D ICD [employer] - CARDIAC RHYTH-CRDM CLARIA MRI QUAD CRTD [id number] / [id number] / Procedures Procedure Name Priority Date/Time Associated Diagnosis Comments CARDIAC DEVICE CHECK- REMOTE- MURJ Routine 06/21/2024 6:42 PM EDT CARDIAC DEVICE CHECK- IN CLINIC- MURJ Routine 06/07/2024 12:53 PM EDT Encounter for adjustment or management of cardiac device ECG 12-LEAD Routine 06/07/2024 10:14 AM EDT Sick sinus syndrome (CMS/HCC V24, CMS/HCC V28) CARDIAC DEVICE CHECK- REMOTE- MURJ Routine 05/04/2024 2:22 PM EST from Last 3 Months Results * Cardiac device check - Remote- MURJ (06/21/2024 6:42 PM EDT) Only the most recent of2 resultswithin the time period is included. Date Time Interrogation Session [id number] CV DEVICE CHECK Type Interrogation Session Remote CV DEVICE CHECK Implantable Pulse Generator Lining Stuffer MDT CV DEVICE CHECK Implantable Pulse Generator Type HOOKER INSPECTOR-D CV DEVICE CHECK Implantable Pulse Generator Model Claria MRI Quad CRTD [id number] CV DEVICE CHECK Implantable Pulse Generator Serial Number [id number] CV DEVICE CHECK Implantable Pulse Generator Implant Date 20230612 CV DEVICE CHECK Battery Remaining Longevity 95.0 CV DEVICE CHECK Battery Voltage 3.010 CV D EVICE CHECK Battery HAT AND CAP DRYING ROOM ATTENDANT Trigger 2.727 CV DEVICE CHECK Battery Status Middle of Service CV DEVICE CHECK Capacitor Charge Time 3.723 CV DEVICE CHECK Claus Statistic RA Percent Paced 4.93 CV DEVICE CHECK Claus Statistic RV Percent Paced 99.63 CV DEVICE CHECK HOOKER INSPECTOR Statistic LV Percent Paced 99.56 CV DEVICE CHECK HOOKER INSPECTOR Statistic HOOKER INSPECTOR Percent Paced 99.56 CV DEVICE CHECK Atrial Tachy Statistic AT/AF [place] Percent 0.00 CV DEVICE CHECK Lead Channel Sensing Intrinsic Amplitude 2.500 CV DEVICE CHECK Lead Channel Setting Sensing Sensitivity 0.30 CV DEVICE CHECK Lead Channel Impedance Value 342 CV DEVICE CHECK Lead Channel Pacing Threshold Amplitude 0.625 CV DEVICE CHECK Lead Channel Pacing Threshold Pulse Width 0.4 CV DEVICE CHECK Lead Channel RA Pacing Threshold Date 2024-06-20 CV DEVICE CHECK Lead Channel Setting Pacing Amplitude 1.500 CV DEVICE CHECK Lead Channel Setting Pacing Pulse Width 0.4 CV DEVICE CHECK Lead Channel Sensing Intrinsic Amplitude 0.750 CV DEVICE CHECK Lead Channel Setting Sensing Sensitivity 0.30 CV DEVICE CHECK Lead Channel Impedance Value 456 CV DEVICE CHECK Lead Channel Pacing Threshold Amplitude 0.625 CV DEVICE CHECK Lead Channel Pacing Threshold Pulse Width 0.4 CV DEVICE CHECK Lead Channel RV Pacing Threshold Date 2024-06-20 CV DEVICE CHECK Lead Channel Setting Pacing Amplitude 1.500 CV DEVICE CHECK Lead Channel Setting Pacing Pulse Width 0.4 CV DEVICE CHECK Lead Channel Impedance Value 494 CV DEVICE CHECK Lead Channel Pacing Threshold Amplitude 0.625 CV DEVICE CHECK Lead Channel Pacing Threshold Pulse Width 0.5 CV DEVICE CHECK Lead Channel Pacing Threshold Date 2024-06-20 CV DEVICE CHECK Lead Channel Setting Pacing Amplitude 1.250 CV DEVICE CHECK Lead Channel Setting Pacing Pulse Width 0.5 CV DEVICE CHECK Claus Setting Mode (NBG Code) DDD CV DEVICE CHECK Ventricular chambers paced during HOOKER INSPECTOR pacing. BiV CV DEVICE CHECK Claus Setting Lower Rate Limit 50 CV DEVICE CHECK Claus Setting AT Mode Switch Rate 171 CV DEVICE CHECK Claus Setting Maximum Tracking Rate 130 CV DEVICE CHECK Claus Setting Maximum Sensor Rate 120 CV DEVICE CHECK Claus Setting PAV Delay 170 CV DEVICE CHECK Claus Setting MARCY Delay 130 CV DEVICE CHECK HOOKER INSPECTOR LV-RV Delay 20 CV D EVICE CHECK Therapy Statistic Recent Shocks Delivered 0 CV DEVICE CHECK Therapy Statistic Recent Shocks Aborted 0 CV DEVICE CHECK Therapy Statistic Recent ATP Delivered 0 CV DEVICE CHECK RV HV Impedance 85 CV D EVICE CHECK Zone Setting Type [...] 6 CV DEVICE CHECK Date of Service 2024-07-18 CV DEVICE CHECK Anatomical Region Laterality Modality Device Interroga tion 06/20/2024 6:18 AM EDT Impressions 06/21/2024 2:31 PM EDT Normal Remote: No Events * Normal Device Function * Alerts or events: None * Battery: OK, 8.00 yrs * Sensing, impedance and thresholds reviewed * Programmed parameters reviewed * Presenting rhythm reviewed * Heart Rate Histograms reviewed * No significant changes noted Heart Failure Diagnostic: Stable * Heart failure diagnostics assessed through the device * Status: Stable * No overt HF present Normal Remote: No Events * Normal Device Function * Alerts or events: None * Battery: OK, 7.92 yrs * Sensing, impedance and thresholds reviewed * Programmed parameters reviewed * Presenting rhythm reviewed * Heart Rate Histograms reviewed * No significant changes noted Narrative Procedure Note Edy Herrera MD - 06/21/2024 IMPRESSION: Normal Remote: No Events * Normal Device Function * Alerts or events: None * Battery: OK, 8.00 yrs * Sensing, impedance and thresholds reviewed * Programmed parameters reviewed * Presenting rhythm reviewed * Heart Rate Histograms reviewed * No significant changes noted Heart Failure Diagnostic: Stable * Heart failure diagnostics assessed through the device * Status: Stable * No overt HF present Normal Remote: No Events * Normal Device Function * Alerts or events: None * Battery: OK, 7.92 yrs * Sensing, impedance and thresholds reviewed * Programmed parameters reviewed * Presenting rhythm reviewed * Heart Rate Histograms reviewed * No significant changes noted Edy Herrera MD CV IMPLANTABLE CARDIAC DEVICE PROCEDURES Final Result * CARDIAC DEVICE CHECK- [place] [facility] [facility] (06/07/2024 12:53 PM EDT) Pathologist [facility] Date Time Interrogation Session [id number] CV DEVICE CHECK Implantable Pulse Generator Lining Stuffer MDT CV DEVICE CHECK Implantable Pulse Generator Type HOOKER INSPECTOR-D CV DEVICE CHECK Implantable Pulse Generator Model Claria MRI Quad CRTD [id number] CV DEVICE CHECK Implantable Pulse Generator Serial Number [id number] CV DEVICE CHECK Implantable Pulse Generator Implant Date 20230612 CV DEVICE CHECK Battery Status Middle of Service CV DEVICE CHECK Claus Statistic RA Percent Paced 8.80 CV DEVICE CHECK HOOKER INSPECTOR Statistic HOOKER INSPECTOR Percent Paced 99.30 CV DEVICE CHECK Atrial Tachy Statistic AT/AF [place] Percent 0.00 CV DEVICE CHECK Lead Channel Sensing Intrinsic Amplitude 2.500 CV DEVICE CHECK Lead Channel Setting Sensing Sensitivity 0.30 CV DEVICE CHECK Lead Channel Impedance Value 342 CV DEVICE CHECK Lead Channel Pacing Threshold Amplitude 0.630 CV DEVICE CHECK Lead Channel Pacing Threshold Pulse Width 0.4 CV DEVICE CHECK Lead Channel RA Pacing Threshold Date 2024-06-07 CV DEVICE CHECK Lead Channel Setting Pacing Amplitude 1.500 CV DEVICE CHECK Lead Channel Setting Pacing Pulse Width 0.4 CV DEVICE CHECK Lead Channel Setting Sensing Sensitivity 0.30 CV DEVICE CHECK Lead Channel Impedance Value 494 CV DEVICE CHECK Lead Channel Pacing Threshold Amplitude 0.630 CV DEVICE CHECK Lead Channel Pacing Threshold Pulse Width 0.4 CV DEVICE CHECK Lead Channel RV Pacing Threshold Date 2024-06-07 CV DEVICE CHECK Lead Channel Setting Pacing Amplitude 1.500 CV DEVICE CHECK Lead Channel Setting Pacing Pulse Width 0.4 CV DEVICE CHECK Lead Channel Impedance Value 494 CV DEVICE CHECK Lead Channel Pacing Threshold Amplitude 0.750 CV DEVICE CHECK Lead Channel Pacing Threshold Pulse Width 0.5 CV DEVICE CHECK Lead Channel Pacing Threshold Date 2024-06-07 CV DEVICE CHECK Lead Channel Setting Pacing Amplitude 1.250 CV DEVICE CHECK Lead Channel Setting Pacing Pulse Width 0.5 CV DEVICE CHECK Claus Setting Mode (NBG Code) DDD CV DEVICE CHECK Ventricular chambers paced during HOOKER INSPECTOR pacing. LV->RV CV DEVICE CHECK Claus Setting Lower Rate Limit 50 CV DEVICE CHECK Claus Setting AT Mode Switch Rate 171 CV DEVICE CHECK Claus Setting Maximum Tracking Rate 130 CV DEVICE CHECK Claus Setting Maximum Sensor Rate 120 CV DEVICE CHECK RV HV Impedance 80 CV D EVICE CHECK Zone Setting Type Category AT/AF CV DEVICE CHECK Therapies All Rx Off CV DEVICE CHECK Zone Setting Status Monitor CV DEVICE CHECK Zone ID 2 CV DEVICE CHECK Zone Setting Type Category VF CV DEVICE CHECK Therapies ATP During Charging, 35J x 6 CV DEVICE CHECK Zone Setting Status On CV DEVICE CHECK Zone ID 3 CV DEVICE CHECK Zone Setting Type Category FVT CV DEVICE CHECK Therapies All Rx Off CV DEVICE CHECK Zone Setting Status Off CV DEVICE CHECK Zone ID 4 CV DEVICE CHECK Zone Setting Type Category VT CV DEVICE CHECK Therapies All Rx Off CV DEVICE CHECK Zone Setting Status Off CV DEVICE CHECK Zone ID 5 CV DEVICE CHECK Date of Service 2024-06-30 CV DEVICE CHECK Anatomical Region Laterality Modality Device Interroga tion 06/07/2024 Impressions 06/14/2024 9:33 AM EDT Normal In-Office: No Events * Normal Device Function * Alerts or events: None * Battery: MOS, 8.0 years * Sensing, impedance and thresholds reviewed and tested * Presenting Rhythm: -BVP 50s * No R waves @ VVI 30 bpm today * Heart Rate Histograms reviewed * Pacing and Detection Parameters were evaluated Heart Failure Diagnostic: Stable * Heart failure diagnostics assessed through the device * Status: Stable * No overt HF present Narrative Procedure Note Edy Herrera MD - 06/14/2024 IMPRESSION: Normal In-Office: No Events * Normal Device Function * Alerts or events: None * Battery: MOS, 8.0 years * Sensing, impedance and thresholds reviewed and tested * Presenting Rhythm: -BVP 50s * No R waves @ VVI 30 bpm today * Heart Rate Histograms reviewed * Pacing and Detection Parameters were evaluated Heart Failure Diagnostic: Stable * Heart failure diagnostics assessed through the device * Status: Stable * No overt HF present us Order Referral Cardiovascular CV IMPLANTABLE CAR DIAC DEVICE PROCEDURES Final Result * ECG 12 lead (06/07/2024 10:14 AM EDT) Ventricular Rate ECG 53 BPM GEMUSE Atrial Rate 53 BPM GEMUSE P-R Interval 158 ms GEMUSE QRS Duration 144 ms GEMUSE Q-T Interval 538 ms GEMUSE QTc 504 ms GEMUSE P Wave Grant 60 degrees GEMUSE R Grant -34 degrees GEMUSE T Grant 108 degrees GEMUSE ECG Interpretation Atrial-sensed ventricular-p aced rhythm (conduction system pacing) Abnormal ECG When compared with ECG of 27-APR-2006 06:55, Vent. rate has decreased BY ?? 7 BPM Paced complex suggests conduction system capture with prior pacing c/w RV apical pacing Confirmed by Fede HERRERA JOHN ([id number]) on 06/27/2024 3:41:45 PM GEMUSE 06/07/2024 9:35 AM EDT 06/27/2024 3:41 PM EDT Eun Wilks DIRECTOR OF PUPIL PERSONNEL PROGRAM ECG ORDERABLES Edited Resul t - Final GEMUSE from Last 3 Months Insurance [employer] Care Teams Set Up Mechanic Automatic Line Relationship Specialty Start Date End Date Cami Enrique MD [address] [facility] [place] [address] PCP - General 09/27/14
--- OUTSIDE RECORDS SUMMARY | 2024-07-21 09:10 | XMS_ITS | Encounter Summary ---
Author Organization [facility] Address [address] [place] [address] Phone Care Team Providers Care Customs Consultant Name Role Phone Beth Enrique MD Primary Care Provider +1- [phone] Reason for Visit * Reason Onset Date Comments RX refill 10/09/2021 Encounter Details Date Type Department Care Team (Late st Contact Info) Description 10/09/2021 Telephone [facility] [address] [place] [address] Aniya Mcallister RX refill Social [...] Visit [facility] [address] [facility] [address] [place] [address] Hazel Greer ARNP [address] [facility] [address] [place] [address] documented as of this encounter Visit Diagnoses Diagnosis Type 2 diabetes mellitus with other diabetic kidney complication (HCC)- Primary documented in this encounter Care Teams Customs Consultant Relationship Specialty Start Date End Date Beth Enrique MD [address] [place] [address] PCP - General 03/26/20 documented as of this encounter
--- OUTSIDE RECORDS SUMMARY | 2024-07-21 09:10 | XMS_ITS | Clinical Summary ---
Author Organization [facility] Address [address] [address] Phone Care Team Providers Care Executive Secretary Social Welfare Name Role Phone Beth Enrique MD Primary Care Provider +1- [phone] Allergies No known active allergies Medications aspirin (ST ELVIS) 81 MG EC tablet Take 1 tablet by mouth 1 (one) time each day Active atorvastatin (LIPITOR) 20 MG tablet 1 Active carvedilol (COREG) 12.5 MG tablet Take 12.5 mg by mouth in the morning and 12.5 mg in the evening. Take with meals. 1 Active cyanocobalamin (VITAMIN B-12) 1000 MCG/ML injection 1 Active ezetimibe (ZETIA) 10 MG tablet 1 Active furosemide (LASIX) 20 MG tablet 1 Active Lantus 100 UNIT/ML injection INJECT 85 90 UNITS AT BEDTIME 1 Active HumaLOG 100 UNIT/ML injection INJECT 2 48 UNITS SUBCUTANEOUSLY THREE TIMES A DAY BEFORE MEALS 1 Active gabapentin (NEURONTIN) 300 MG capsule 1 Active OneTouch Verio test strip 1 Active BD Insulin Syringe U/F 31G X 07/29 1 ML misc 1 Active Semaglutide,0. 25 or 0.5MG/DOS, (Ozempic, 0.25 or 0.5 MG/DOSE,) 2 MG/1.5ML solution pen-injector Inject 0.5 mg under the skin per week Active metFORMIN (FORTAMET) 500 MG 24 hr tabletIndicati ons:Type 2 Diabetes Mellitus Take 500 mg by mouth 1 (one) time each day with dinner Do not crush, chew, or split. Active spironolactone (ALDACTONE) 25 MG tabletIndicati ons:Hypertensi on,Stage 3b chronic kidney disease (HCC) Take 1 tablet (25 mg total) by mouth 1 (one) time each day 90 tablet 3 4 025 Active Blood Pressure Monitoring (Omron 3 Series BP Monitor) deviceIndicati ons:Hypertensi on,Stage 3b chronic kidney disease (HCC) 1 Device 1 (one) time each day 1 each 5 Active cholecalcifero l (VITAMIN D-3) 25 MCG (1000 UT) capsule Take 1 capsule (1,000 Units total) by mouth 3 (three) times a week 12 capsule 5 5 025 Active Active Problems Problem Noted Date Diagnosed Date Vitamin D deficiency due to chronic kidney disea se 04/10/2024 Stage 3b chronic kidney disease 03/25/2023 Pacemaker status 03/25/2023 Cardiac defibrillator status 03/25/2023 Overview (03/25/2023): Coater Operator is Dr[facility] Bryson at [facility] Diabetes mellitus 07/25/2020 Hypertensive heart disease without congestive he art failure 07/25/2020 Hypertension 07/25/2020 Resolved Problems Problem Noted Date Diagnosed Date Resolved Date Chronic kidney disease stage 2 07/25/2020 03/25/2023 Hypertensive disorder 07/25/20202023 Serum creatinine above reference range 07/25/2020 03/25/2023 Chronic kidney disease, stage 2 (mild) 07/25/2020 03/25/2023 Family History Medical History Relation Comments Cancer [...] Office Visit [facility] [address] [address] Hazel Greer ARNP [address] [address] Health Maintenance Due Date Last Done Comments Pneumococcal Vaccine: 50+ Years (1 of 2 - PCV) 1959 Diabetes: Ophthalmology Exam 04/16/2020 Diabetes: Pedal Pulse Checked 04/16/2020 Diabetes: Sensory Foot Exam 04/16/2020 Diabetes: Visual Foot Exam 04/16/2020 Diabetes: Hemoglobin A1C 07/28/2022 023, 01/10/2020, 06/09/2018 Influenza Vaccine (Season Ended) 2024 Hepatitis B Vaccine Aged Out No longe r eligible based on patient's age to complete this topic Procedures Procedure Name Priority Date/Time Associated Diagnosis Comments HEMOGLOBIN A1C Routine 04/30/2022 11:02 AM EST from Last 3 Months or Most Recently Relevant to Health Maintenance Results * (ABNORMAL) Hemoglobin A1c (04/30/2022 11:02 AM [...] Most Recently Relevant to Health Maintenance Insurance [employer] [facility] ([id number]) [employer] [facility] ([id number]) Care Teams Executive Secretary Social Welfare Relationship Specialty Start Date End Date Beth Enrique MD [address] [place] [address] PCP - General 03/26/20
--- OUTSIDE RECORDS SUMMARY | 2024-07-21 09:10 | XMS_ITS | Encounter Summary ---
Author Organization [facility] Address [address] [address] Phone Care Team Providers Care Sintering Plant Supervisor Name Role Phone Beth Enrique MD Primary Care Provider +1- [phone] Encounter Details Date Type Department Care Team (Late Contact Info) Description 04/10/2024 Office Communication [facility] [address] [place] [address] Hazel Greer ARNP [address] [address] Social History Tobacco Use Types [...] Department Care Team (Late Contact Info) Description 10/18/2024 10:00 AM EDT [facility] Visit [facility] [address] [address] Hazel Greer ARNP [address] [address] documented as of this encounter Visit Diagnoses Not on filedocumented in this encounter Care Teams Sintering Plant Supervisor Relationship Specialty Start Date End Date Beth Enrique MD [address] [place] [address] PCP - General 03/26/20 documented as of this encounter
[2024-07-21 11:00] LABS: Alanine Aminotransferase 37 U/L (0-31); Aspartate Amino Transferase 36 U/L (5-31); Cholesterol 168 mg/dL (<200); HDL Cholesterol 40 mg/dL (>40); LDL Cholesterol Calculated 86 mg/dL (<100); Triglycerides 211 mg/dL (<150)
[2024-07-21 11:16] LABS: Vitamin D 25-OH Total 42.6 ng/mL (>30)
[2024-07-21 11:28] LABS: Folate 9.7 ng/mL (> or = 4.0); Vitamin B12 894 pg/mL (200-900)
== END 2024-07-21 08:50 | disposition home or self-care (01) ==
LOC: HO.HMGCLDS 08:49
PROVIDERS: PCP Internal Medicine; Visit Provider Internal Medicine
DX: E11.9 Type 2 diabetes mellitus without complications (principal); N18.9 Chronic kidney disease, unspecified; E78.2 Mixed hyperlipidemia; M79.10 Myalgia, unspecified site; T46.6X5A Adverse effect of antihyperlipidemic and antiarteriosclerotic drugs, initial encounter; Z78.0 Asymptomatic menopausal state
CPT/HCPCS: 36415; 80061; 82306; 82550; 82607; 82746; 84450; 84460

== ENCOUNTER 2024-07-25 08:57 | Outpatient (AMB) | payer MEDICARE, SELFPAY ==
--- OUTSIDE RECORDS SUMMARY | 2024-07-25 09:05 | XMS_ITS | Clinical Summary ---
Author Organization [address] [place] [address] Address [address] [place] [address] Phone Care Team Providers Care Lodge Officer Name Role Phone Cami Enrique MD Primary Care Provider +1- [phone] Allergies No known active allergies Medications carvediloL [...] th type 2 diabetes mellitus (CMS/HCC V24, [facility] V28) 04/30/2022 Heart failure with recovered ejection fraction (HFrecEF) ([facility] V24, [facility] V28) 11/13/2021 Nonrheumatic mitral valve regurgitation 11/14/19 Sick sinus syndrome ([facility] V24, [facility] V28) 0 11/13/2021 Essential hypertension 10/15/2020 Overview (02/25/2024): Hypertensive disorder Atherosclerotic heart disease 10/11/2020 Dyslipidemia 10/11/2020 Pacemaker 10/11/2020 Type 2 diabetes mellitus, wi thout long-term current use of insulin ([facility] V24, [facility] V28) 10/11/2020 Hypertensive heart disease without congestive he art failure 07/25/2020 Serum creatinine raised 07/25/2020 Stage 2 chronic kidney disease 07/25/2020 Encounters Date Type Department Care Team Description 06/21/2024 6:45 PM EDT Ancillary Procedure [facility] [address] [facility] [address] [place] [address] 06/07/2024 10:30 AM EDT [facility] [address] [facility] [address] [place] [address] Encounter for adjustment or management of cardiac device 06/07/2024 9:40 AM EDT Office Visit [facility] [address] [facility] [address] [place] [address] Eun Wilks NP Ischemic cardiomyopathy (Primary Dx); Nonrheumatic mitral valve regurgitation; Sick sinus syndrome ([facility] V24, [facility] V28) 05/04/2024 2:25 PM EST Ancillary Procedure [facility] [address] [facility] [address] [place] [address] from Last 3 Months Surgical History Surgery [...] Description 08/22/2024 10:30 AM EDT Ancillary Procedure [facility] [address] [place] [address] 06/07/2025 10:00 AM EDT Ancillary Procedure [facility] [address] [facility] [address] [place] [address] Health Maintenance Due Date Last Done Comments [...] this topic Medical Devices Implanted Type Area Medical Office Asst Device Identifier Shelf Expiration Date Model / Serial / Lot Medt-Card Claria Mri Quad Crtd [id number] Implanted:05/15 (Quantity not on file) Cardiac GRIND OPERATOR-D ICD [employer] - CARDIAC RHYTH-CRDM CLARIA MRI QUAD CRTD [id number] / [id number] / Procedures Procedure Name Priority Date/Time Associated [...] period is included. Date Time Interrogation Session [id number] CV DEVICE CHECK Type Interrogation Session Remote CV DEVICE CHECK Implantable Pulse Generator Medical Office Asst MDT CV DEVICE CHECK Implantable Pulse Generator Type GRIND OPERATOR-D CV DEVICE CHECK Implantable Pulse Generator Model Claria MRI Quad CRTD [id number] CV DEVICE CHECK Implantable Pulse Generator Serial Number [id number] CV DEVICE CHECK Implantable Pulse Generator Implant Date 20230612 CV DEVICE CHECK Battery Remaining Longevity 95.0 CV DEVICE CHECK Battery Voltage 3.010 CV D EVICE CHECK Battery BILL BOARD POSTER Trigger 2.727 CV DEVICE CHECK Battery Status Middle of Service CV DEVICE CHECK Capacitor Charge Time 3.723 CV DEVICE CHECK Claus Statistic RA Percent Paced 4.93 CV DEVICE CHECK Claus Statistic RV Percent Paced 99.63 CV DEVICE CHECK GRIND OPERATOR Statistic LV Percent Paced 99.56 CV DEVICE CHECK GRIND OPERATOR Statistic GRIND OPERATOR Percent Paced 99.56 CV DEVICE CHECK Atrial Tachy Statistic AT/AF [place] Percent 0.00 CV DEVICE CHECK Lead Channel [...] CV DEVICE CHECK Ventricular chambers paced during GRIND OPERATOR pacing. BiV CV DEVICE CHECK Claus Setting Lower Rate Limit 50 CV DEVICE CHECK Claus Setting AT Mode Switch Rate 171 CV DEVICE CHECK Claus Setting Maximum Tracking Rate 130 CV DEVICE CHECK Claus Setting Maximum Sensor Rate 120 CV DEVICE CHECK Claus Setting PAV Delay 170 CV DEVICE CHECK Claus Setting MARCY Delay 130 CV DEVICE CHECK GRIND OPERATOR LV-RV Delay 20 CV D EVICE CHECK [...] Result * CARDIAC DEVICE [place] [facility] [place]06/07/2024 12:53 PM EDT) Pathologist [facility] Date Time Interrogation Session [id number] CV DEVICE CHECK Implantable Pulse Generator Medical Office Asst MDT CV DEVICE CHECK Implantable Pulse Generator Type GRIND OPERATOR-D CV DEVICE CHECK Implantable Pulse Generator Model Claria MRI Quad CRTD [id number] CV DEVICE CHECK Implantable Pulse Generator Serial Number [id number] CV DEVICE CHECK Implantable Pulse Generator Implant Date 20230612 CV DEVICE CHECK Battery Status Middle of Service CV DEVICE CHECK Claus Statistic RA Percent Paced 8.80 CV DEVICE CHECK GRIND OPERATOR Statistic GRIND OPERATOR Percent Paced 99.30 CV DEVICE CHECK Atrial Tachy Statistic AT/AF [place] Percent 0.00 CV DEVICE CHECK Lead Channel [...] CV DEVICE CHECK Ventricular chambers paced during GRIND OPERATOR pacing. LV->RV CV DEVICE CHECK Claus Setting [...] GEMUSE QTc 504 ms GEMUSE P Wave [place] 60 degrees GEMUSE R [place] -34 degrees GEMUSE T [place] 108 degrees GEMUSE ECG Interpretation Atrial-sensed ventricular-p aced rhythm (conduction system pacing) Abnormal ECG When compared with ECG of 27-APR-2006 06:55, Vent. rate has decreased BY ?? 7 BPM Paced complex suggests conduction system capture with prior pacing c/w RV apical pacing Confirmed by Fede HERRERA JOHN ([id number]) on 06/27/2024 3:41:45 PM GEMUSE 06/07/2024 9:35 AM EDT 06/27/2024 3:41 PM EDT Eun Wilks BOWLING FLOOR MANAGER ECG ORDERABLES Edited Resul t - Final GEMUSE from Last 3 Months Insurance [employer] Care Teams Lodge Officer Relationship Specialty Start Date End Date Cami Enrique MD [address] [facility] [place] [id number] PCP - General 09/27/14
--- OUTSIDE RECORDS SUMMARY | 2024-07-25 09:05 | XMS_ITS | Encounter Summary ---
Author Organization [facility] Address [address] [address] Phone Care Team Providers Care Hog Scraper Name Role Phone Beth Enrique MD Primary Care Provider +1- [phone] Encounter Details Date Type Department Care Team (Late Contact Info) Description 04/10/2024 Office Communication [facility] [address] [place] [address] Hazel Greer ARNP [address] [address] Social History Tobacco Use Types [...] EDT Office Visit [facility] [address] [address] Hazel Greer ARNP [address] [address] documented as of this encounter Visit Diagnoses Not on filedocumented in this encounter Care Teams Hog Scraper Relationship Specialty Start Date End Date Beth Enrique MD [address] [place] [address] PCP - General 03/26/20 documented as of this encounter
--- OUTSIDE RECORDS SUMMARY | 2024-07-25 09:05 | XMS_ITS | Encounter Summary ---
Author Organization [facility] Address [address] [facility] [address] [facility] [address] [place] [address] Phone Care Team Providers Care Etl Lead Name Role Phone Beth Enrique MD Primary Care Provider +1- [phone] Encounter Details Date Type Department Care Team (Late st Contact Info) Description 09/23/2023 Office Communication [facility] [address] [facility] [address] [place] [address] Hazel Greer ARNP [address] [facility] [address] [place] [address] Social History Tobacco Use Types [...] Office Visit [facility] [address] [address] Hazel Greer ARNP [address] [address] documented as of this encounter Visit Diagnoses Not on filedocumented in this encounter Care Teams Etl Lead Relationship Specialty Start Date End Date Beth Enrique MD [address] [place] [address] PCP - General 03/26/20 documented as of this encounter
--- OUTSIDE RECORDS SUMMARY | 2024-07-25 09:05 | XMS_ITS | Clinical Summary ---
Author Organization [facility] Address [address] [address] Phone Care Team Providers Care Manager Mutual Fund Name Role Phone Beth Enrique MD Primary Care Provider +1- [phone] Allergies No known active allergies Medications aspirin [...] 03/25/2023 Cardiac defibrillator status 03/25/2023 Overview (03/25/2023): Manager Laundry is [facility] Bryson at [facility] Diabetes mellitus 07/25/2020 Hypertensive heart disease without [...] Office Visit [facility] [address] [address] Hazel Greer ARNP [address] [address] Health Maintenance Due Date Last [...] Most Recently Relevant to Health Maintenance Insurance [employer] [facility]/SATYA ([id number]) [employer] [facility] ([id number]) Care Teams Manager Mutual Fund Relationship Specialty Start Date End Date Beth Enrique MD [address] [place] [address] PCP - General 03/26/20
--- OUTSIDE RECORDS SUMMARY | 2024-07-25 09:05 | XMS_ITS | Encounter Summary ---
Author Organization [facility] Address [address] [place] [address] Phone Care Team Providers Care Valet Parker Name Role Phone Beth Enrique MD Primary Care Provider +1- [phone] Reason for Visit * Reason Onset Date Comments RX refill 10/09/2021 Encounter Details Date Type Department Care Team (Late st Contact Info) Description 10/09/2021 Telephone [facility] [address] [place] [address] Aniya Mcallister RX refill Social [...] Visit [facility] [address] [facility] [address] [place] [address] Hazel Greer ARNP [address] [facility] [address] [place] [address] documented as of this encounter Visit Diagnoses Diagnosis Type 2 diabetes mellitus with other diabetic kidney complication (HCC)- Primary documented in this encounter Care Teams Valet Parker Relationship Specialty Start Date End Date Beth Enrique MD [address] [place] [address] PCP - General 03/26/20 documented as of this encounter
--- NOTE | 2024-07-25 09:35 | A.OFFPC_ITS ---
Vital Signs 07/25/24 09:49 Height 5 ft 6.5 in Weight 184 lb BMI 29.3 BP 110/60 Blood Pressure Location Rt brachial Position Sitting Respiration 16 Pulse 60 Pulse Source Pulse Oximeter Temp 97.7 F Temp Source Oral Pulse Oximetry (%) 96 Oxygen Delivery Method Room Air Intake Visit Reasons: 4m follow up Intake Note: Pt is here today for her 4mo. f/u Allergies No Known Allergies Allergy (Verified 07/25/24 09:57) Medication List - Last Reconciled 07/25/24 by Cami Enrique MD atorvastatin 20 mg PO Q2D 3 months carvedilol 12.5 mg PO BID cholecalciferol (vitamin D3) (Vitamin D3) 25 mcg PO Q2D cyanocobalamin (vitamin B-12) 1,000 mcg IM Q OTHER DAY ezetimibe 10 mg PO DAILY furosemide 20 mg PO Q2D gabapentin 300 mg PO DAILY insulin glargine 82 units subcut QPM insulin lispro subcut metformin ER 500 mg PO DAILY semaglutide (Ozempic) mg subcut spironolactone 25 mg PO DAILY Tobacco use date assessed: 07/25/24 Fall risk assessment: No Falls in past year Last assessed Fall Risk: 07/25/24 Dental Screening Dental Screen Date: 07/25/24 Did you have a dental visit in the last 12 months?: No Did you have a dental problem in the last 6 months where you did not have access to dental care?: No Was dental information given to patient?: No PFSH Medical History 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 Mother Mental health disorder Social History Housing: Apartment Alcohol intake: former Patient Tobacco Use Status: Never used Tobacco e-Cigarette/Vaping Use: Never Used Current occupational status: retired Cognitive needs: No Hearing needs: No Vision needs: Yes Questionnaire PHQ-9 Over the last 2 weeks, how often have you been bothered by any of the following problems? 1. Little interest or pleasure in doing things: not at all 2. Feeling down, depressed, or hopeless: not at all 3. Trouble falling or staying asleep, or sleeping too much: not at all 4. Feeling tired or having little energy: not at all 5. Poor appetite or overeating: not at all 6. Feeling bad about yourself - or that you are a failure or have let yourself or your family down: not at all 7. Trouble concentrating on things, such as reading the newspaper or watching television: not at all 8. Moving or speaking so slowly that other people could have noticed. Or the opposite - being so fidgety or restless that you have been moving around a lot more than usual: not at all 9. Thoughts that you would be better off or of hurting yourself in some way: not at all Total score: 0 Depression Screening Interpretation: Negative Depression Screening Done: Yes 17246 - PHQ-9 Billing: Yes Source: Developed by Drs. Trace Sosa, Joya Mederos, Damaso Qureshi and colleagues, with an educational cipriano from [employer]. Thrive Questionnaire Date Thrive assessed: 07/25/24 I am a: Patient What is your living situation today?: I have a steady place to live Within the past 12 months, did the food you bought not last and you didn't have the money to get more?: Never true Within the past 12 months, did you worry whether your food would run out before you got money to buy more?: Never true Do you have trouble paying for medicines?: No Do you have trouble getting transportation to medical appointments?: No Do you have trouble paying your heating and electricity bill?: No Do you have trouble taking care of your child, family member or friend?: No Do you have trouble with day-to-day activities such as bathing, preparing meals, shopping, managing finances, etc.?: No Are you currently unemployed and looking for a job?: Yes Are you interested in more education?: No Please select the resources that you would like help with: None Currently or been in a relationship where the following occur: No concerns reported THRIVE Score: 0 AUDIT C Alcohol Use Questionnaire (AUDIT-C) 1. How often do you have a drink containing alcohol?: Never Total Score: 0 ANGELLA-7 AMB Questionnaire ANGELLA-7 Date ANGELLA - 7 assessed: 07/25/24 Feeling nervous, anxious, or on edge: 0 = Not at all Not being able to stop or control worryin = Not at all Worrying too much about different things: 0 = Not at all Trouble relaxin = Not at all Being so restless that it is hard to sit still: 0 = Not at all Becoming easily annoyed or irritable: 0 = Not at all Feeling afraid as if something awful might happen: 0 = Not at all Total ANGELLA-7 score (0-4 normal; 5-9 mild; 10-14 moderate; 15-21 severe): 0 Source: Developed by Drs. Trace Sosa, Joya Mederos, Damaso Qureshi and colleagues, with an educational cipriano from [employer]. ANGELLA-7 Assessment Billing ANGELLA-7 Assessment Tool: ANGELLA-7 Assessment 35291 Review of Systems Const Denies body aches, Denies fatigue, Denies fever(s) and Denies headache(s) Eyes Denies change in vision ENT Denies dizziness, Denies headache(s), Denies nasal congestion, Denies nasal discharge and Denies sore throat Card Denies chest pain, Denies lightheadedness, Denies palpitations and Denies dyspnea Resp Denies chest congestion, Denies cough, Denies dyspnea and Denies wheezing GI Denies abdominal pain, Denies change in bowel habits and Denies heartburn Denies urinary frequency, Denies dysuria and Denies urinary urgency Musc Reports stiffness Skin/Breast Denies lesions and Denies rash Neuro Denies dizziness and Denies headache(s) Psych Reports no additional complaints Endo Denies fatigue, Denies polydipsia, Denies polyuria and Denies palpitations Eloy/Lymph Denies easy bruising Aller/Immun Denies seasonal rhinorrhea and Denies wheezing Physical exam (Primary Care) Vital Signs: Last Vital Signs Temp 97.7 F 07/25/24 09:49 Pulse 60 07/25/24 09:49 Resp 16 07/25/24 09:49 BP 110/60 07/25/24 09:49 Pulse Ox 96 07/25/24 09:49 Oxygen Delivery Method Room Air 07/25/24 09:49 BMI result Body Mass Index 29.3 Tobacco/Smoking Status: Tobacco use Status Tobacco use date assessed 07/25/24 07/25/24 09:36 Patient Tobacco Use Status Never used Tobacco 07/25/24 09:36 e-Cigarette/Vaping Use Never Used 07/25/24 09:36 PHQ-9: PHQ-9 Score PHQ-9: Total score 0 07/25/24 09:57 Depression Screening Interpretation: Negative Thrive Assessment: Date of Thrive Assessment Date Thrive assessed 07/25/24 07/25/24 09:37 Currently or been in a relationship where the following occur: No concerns reported Const General: no acute distress and alert Orientation/consciousness: patient oriented x3 HENMT Ears: external ears normal General nose exam: Normal external nose present and No nasal discharge present Mouth: moist mucous membranes Eyes General: appearance normal, both eyes and all related structures Neck Neck: Yes full ROM, Yes no lymphadenopathy and Yes supple Resp Effort & Inspection: normal respiratory effort and able to speak in complete sentences Auscultation: clear to auscultation bilaterally Cardio Rate: regular rate Rhythm: regular rhythm Heart sounds: S1 normal heart sound present and S2 normal heart sound present GI Palpation (GI): Soft to palpation, nontender and no masses Auscultation: normal bowel sounds General: Yes no CVA tenderness Back/Spine/Pelvis Back: no CVA tenderness and No back tenderness Neuro General: patient oriented x3, gait normal, tone normal, moves all extremities, Normal light touch and pain sensation and no focal motor deficits Cranial nerves: Yes CN's II-XII intact bilaterally Cognition (Neuro): normal cognition Extrem Other: Crepitus in both knees General: Yes full ROM, Yes no joint enlargement, Yes no clubbing, cyanosis or edema and Yes no calf tenderness Psych Appearance: grossly normal Mental Status: mental status grossly normal Speech and movement: Normal speech and movement present Affect: normal affect Thought process: Normal thought process present Thought content: Normal thought content present Results AMB Hemoglobin A1c AMB Hemoglobin A1c 10.0 % Last Edit by Peggy Scott CMA on 07/25/24 10:22 Results Reviewed Results Reviewed: min: Luly Mehta Age/Sex: 83/F : 1940 Unit#: [id number] Attend Dr: Cami Enrique MD Re07/21/24 Status: DEP [facility]: SPEC : [id number] DAVID: 07/21/24 STATUS: COMP REQ : [id number] RECD: 07/21/[address]: Cami Enrique MD COMP: 07/21/24 ENTERED: 07/21/[address]: ORDERED: AST, ALT, CK Total, Lipid Panel, Vitamin D 25-OH Test Result Flag Reference AST (GOT) 36 H 5-31 U/L ALT (GPT) 37 H 0-31 U/L CK Total 85 26-140 U/L Triglyceride 211 H <150 mg/dL Desirable Triglyceride: less than 150 mg/dL Borderline High Triglyceride 150-199 mg/dL High Triglyceride: 200-499 mg/dL Very High Triglyceride: greater than or equal to 5OO mg/dL Cholesterol 168 <200 mg/dL Desirable Cholesterol: less than 200 mg/dL Borderline High Cholesterol: 200-239 mg/dL High Cholesterol: greater than 239 mg/dL LDL Calculated 86 <100 mg/dL Desirable LDL: less than 100 mg/dL Near Optimal/Above Optimal LDL: 110-129 mg/dL Borderline High LDL: 130-159 mg/dL High LDL: 160-189 mg/dL Very High LDL: greater than or equal to 190 mg/dL HDL 40 L >40 mg/dL Desirable HDL: greater than 40 mg/dL Note: This HDL assay may give artificially low results in patients with liver disease. 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 Torres and Dr. 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 Torres and Dr. Sewell Code(s): E11.3293 - Type 2 diabetes mellitus with mild nonproliferative diabetic retinopathy without macular edema, bilateral; Z79.4 - nursing home (current) use of insulin Category: Medical (3) Mixed dyslipidemia: Code(s): E78.2 - Mixed hyperlipidemia Category: Medical Orders: Orders Alanine Aminotransferase 10/14/24 E11.3293 - Type 2 diabetes mellitus with mild nonproliferative diabetic retinopathy without macular edema, bilateral, E78.2 - Mixed hyperlipidemia, Z79.4 - technician terminal and repeater (current) use of insulin Aspartate Amino Transferase 10/14/24 E11.3293 - Type 2 diabetes mellitus with mild nonproliferative diabetic retinopathy without macular edema, bilateral, E78.2 - Mixed hyperlipidemia, Z79.4 - technician terminal and repeater (current) use of insulin Basic Metabolic Panel Fasting 10/14/24 E11.3293 - Type 2 diabetes mellitus with mild nonproliferative diabetic retinopathy without macular edema, bilateral, E78.2 - Mixed hyperlipidemia, Z79.4 - nursing home (current) use of insulin AMB Hemoglobin A1c Today E11.9 - Type 2 diabetes mellitus without complications Hemoglobin A1c 10/14/24 E11.3293 - Type 2 diabetes mellitus with mild nonproliferative diabetic retinopathy without macular edema, bilateral, E78.2 - Mixed hyperlipidemia, Z79.4 - technician terminal and repeater (current) use of insulin Lipid Panel 10/14/24 E11.3293 - Type 2 diabetes mellitus with mild nonproliferative diabetic retinopathy without macular edema, bilateral, E78.2 - Mixed hyperlipidemia, Z79.4 - technician terminal and repeater (current) use of insulin Microalbumin, Random (w Creat) 10/14/24 E11.3293 - Type 2 diabetes mellitus wit h mild nonproliferative diabetic retinopathy without macular edema, bilateral, E78.2 - Mixed hyperlipidemia, Z79.4 - nursing home (current) use of insulin Referrals Endocrinology Referral E11.3293 - Type 2 diabetes mellitus with mild nonproliferative diabetic retinopathy without macular edema, bilateral, Z79.4 - technician terminal and repeater (current) use of insulin Medications: New gabapentin 300 mg PO DAILY 30 caps 5RF FreeStyle Tim 2 Plus Sensor (blood-glucose sensor) As directed 1 ea 5RF NS E11.3293 - Type 2 diabetes mellitus with mild nonproliferative diabetic retinopathy without macular edema, bilateral, Z79.4 - technician terminal and repeater (current) use of insulin flash glucose scanning reader (FreeStyle Tim 2 [place]) As directed 1 ea 5RF E11.3293 - Type 2 diabetes mellitus with mild nonproliferative diabetic retinopathy without macular edema, bilateral, Z79.4 - technician terminal and repeater (current) use of insulin Ozempic (semaglutide) 2 mg (0.75 mL) subcut QWEEK 3 mL 3RF 30 days NS E11.3293 - Type 2 diabetes mellitus with mild nonproliferative diabetic retinopathy without macular edema, bilateral, Z79.4 - technician terminal and repeater (current) use of insulin
[2024-07-25 09:49] VITALS: BP 110/60; PULSE 60; RESP 16; TEMP 36.5; O2SAT 96; BMI 29.3
== END 2024-07-25 10:22 | disposition home or self-care (01) ==
LOC: HO.HMCC 08:58
PROVIDERS: PCP Internal Medicine; Visit Provider Internal Medicine
DX: E11.9 Type 2 diabetes mellitus without complications (principal)

== ENCOUNTER → 2024-07-25 08:57 | Outpatient (BNVA) | payer MEDICARE, SELFPAY | PROVIDERS: PCP Internal Medicine; Visit Provider Internal Medicine | DX: E11.3293 Type 2 diabetes mellitus with mild nonproliferative diabetic retinopathy without macular edema, bilateral (principal); E78.2 Mixed hyperlipidemia; Z79.4 Long term (current) use of insulin; Z79.84 Long term (current) use of oral hypoglycemic drugs; Z79.899 Other long term (current) drug therapy | CPT/HCPCS: 83036; 96127; 99212 ==

== ENCOUNTER 2024-08-09 12:31 | Outpatient (AMB) | payer MEDICARE, SELFPAY ==
--- OUTSIDE RECORDS SUMMARY | 2024-08-09 12:37 | XMS_ITS | Encounter Summary ---
Author Organization [facility] Address [address] [place] [address] Phone Care Team Providers Care Health Services Rn Name Role Phone Beth Enrique MD Primary Care Provider [phone] Reason for Visit * Reason Onset Date Comments RX refill 10/09/2021 Encounter Details Date Type Department Care Team (Late st Contact Info) Description 10/09/2021 Telephone [facility] [address] [place] [address] Aniya Mcallister RX refill Social [...] Visit [facility] [address] [facility] [address] [place] [address] Hazel Greer ARNP [address] [facility] [address] [place] [address] documented as of this encounter Visit Diagnoses Diagnosis Type 2 diabetes mellitus with other diabetic kidney complication (HCC)- Primary documented in this encounter Care Teams Health Services Rn Relationship Specialty Start Date End Date Beth Enrique MD [address] [place] [address] PCP - General 03/26/20 documented as of this encounter
--- NOTE | 2024-08-09 12:47 | A.OFFVIS_ITS ---
Vital Signs 08/09/24 12:51 Height 5 ft 6.5 in Weight 187 lb 13.341 oz BMI 29.9 BP 100/56 L Blood Pressure Location Rt brachial Position Sitting Pulse 66 Pulse Source Pulse Oximeter Pulse Oximetry (%) 97 Oxygen Delivery Method Room Air Intake Visit Reasons: Type 2 diabetes mellitus with mild nonproliferati Intake Note: New patient present today for T2DM Patient receives Tim 3 Plus sensor through: [facility] Last Diabetic Eye exam: approx 6 months ago, is seeing the Retina specialist on September 26 2024 Last Podiatry Visit: Nurse visits patient in home, was last see this morning 08/09/2024 Random Glucose: 209 mg/dl HgA1C: 10.0% 07/25/2024 Recording Studio Setup Worker Required: No Accompanied by: Self / Same As Patient Allergies No Known Allergies Allergy (Verified 08/09/24 12:53) HPI Comments Details: This is an 83-year-old female with a past medical history of type 2 diabetes, chronic kidney disease, CAD, sick sinus syndrome s/p placement of cardiac pacemaker and left breast cancer presenting for an initial consult for diabetes management. She was diagnosed with diabetes in 1991. There is a family history of diabetes: son, daughter (), many of her family members on her mother's side of the family have type 2 diabetes. There is no known family history of type 1 diabetes. Previously followed by Dr. Goss, but her insurance is no longer accepted there. I reviewed her Tim 2 download The CGM is active 39% The average glucose is 194 Very high 11% High 47% Target range 42% 0% hypoglycemia She has postprandial hyperglycemia during the day and night. Hemoglobin a1c 10% 07/25/24. Current medication regimen: Ozempic 2 mg weekly (she took her 1st dose last week, and she is due today for the 2nd), Metformin extended release 500 mg daily, insulin glargine 82 units every evening, humalog per sliding scale, but she does not have the scale with her. She is administering Humalog after meals. Past medication: Glipizide-she thinks this caused side effects and was discontinued. She thinks that she might have tried Jardiance, but she is not sure. Compliance issues: none Diet: Breakfast- toast with peanut butter or banana, coffee with half and half Lunch-protein, vegetables, potato, water or milk Dinner- sandwich, bowl of cereal, salad Snacks/desserts: no sugar added juice, cookies Hypoglycemia symptoms: rare, shaky and sweaty (she has glucose tablets at home) Hyperglycemia symptoms: none Microvascular complications: neuropathy, nephropathy ([facility]), retinopathy (Dr. Sewell) Macrovascular complications: CAD (Dr. Leon) Hypertension: treated with carvedilol 12.5 mg twice daily, spironolactone 25 mg daily Hyperlipidemia: treated with Zetia 10 mg, atorvastatin 20 mg ROS: Constitutional: No unexplained weight loss, fever, chills or night sweats. Eyes: No vision changes, blurry vision, double vision, eye pain, eye redness, eye discharge. Respiratory: No shortness of breath Cardiovascular: No chest pain Gastrointestinal: No anorexia, nausea, vomiting or diarrhea. No abdominal pain Neurologic: No headache, dizziness, syncope, +neuropathy in her feet Skin: No open wounds Endocrine: No cold or heat intolerance. See HPI Physical exam: Constitutional: Alert, in no distress. Head: Normocephalic. Eyes: Pupils are equal, round and reactive to light. Extraocular muscles intact. Neck: Supple, Full range of motion. No lymphadenopathy. No palpable thyroid masses. Respiratory: Clear to auscultation. Cardiovascular: S1 S2 regular. No murmurs. No carotid bruits. Patient declined foot exam today because she had a foot exam done this morning by the diabetic nurse from her insurance. 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 Mother Mental health disorder Social History Housing: Apartment Alcohol intake: former Patient Tobacco Use Status: Never used Tobacco e-Cigarette/Vaping Use: Never Used Current occupational status: retired Cognitive needs: No Hearing needs: No Vision needs: Yes Physical Exam Vital Signs: Last Vital Signs Pulse 66 08/09/24 12:51 BP 100/56 L 08/09/24 12:51 Pulse Ox 97 08/09/24 12:51 Oxygen Delivery Method Room Air 08/09/24 12:51 BMI result Body Mass Index 29.9 Results Reviewed Results Reviewed: Laboratory Last Values Glucose (Clinic) 209 mg/dL (60-115) H 08/09/24 13:03 Laboratory Tests 09/02/23 02/19/24 04/01/24 12:49 08:35 12:59 Creatinine 1.36 1.13 Estimated GFR 37 46 Hgb A1c (Clinic) 11.7 H Hemoglobin A1c % 8.9 H AST ALT Triglycerides Cholesterol LDL Cholesterol, Calc HDL Cholesterol Vitamin B12 25-OH Vitamin D Total Urine Creatinine Urine Microalbumin Microalb/Creat Ratio 04/01/24 07/21/24 07/25/24 13:09 08:53 10:20 Creatinine Estimated GFR Hgb A1c (Clinic) 10.0 H Hemoglobin A1c % AST 36 H ALT 37 H Triglycerides 211 H Cholesterol 168 LDL Cholesterol, Calc 86 HDL Cholesterol 40 L Vitamin B12 894 25-OH Vitamin D Total 42.6 Urine Creatinine 37.02 Urine Microalbumin 10.0 Microalb/Creat Ratio 27.0 Assessment & Plan Assessment & Plan (1) 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 Discussed pathophysiology of Type II Diabetes Mellitus with the patient in detail.? I explained the care home risks and complications associated with uncontrolled diabetes including nephropathy, neuropathy, peripheral vascular disease, retinopathy, increased risk of heart disease and stroke.? Discussed lifestyle modification with the patient. Declined referral to certified adapted physical educator and dietitian. Since she has uncontrolled diabetes and CKD I would like to try her on Jardiance or Invokana, but she is not prepared to to do this today. She will be running out of the Tim 2 sensors this month, and they are being discontinued. She is also not scanning as frequently as recommended. Tim 3 plus CGM is medically necessary in this patient with insulin-dependent diabetes. Prescriptions submitted. Continue insulin glargine 82 units every evening. I we will switch her to [place] when she is due for the next refill, but she says she has just picked up a refill on her insulin glargine so I did not submitted today. Continue Ozempic 2 mg weekly. She just started this dose a week ago. Continue Metformin 500 mg once daily Continue Humalog three times daily, but begin administering this 15 minutes before meals. I will see her back in 1 month for type 2 diabetes and to review sensor data. (2) CKD (chronic kidney disease): Code(s): N18.9 - Chronic kidney disease, unspecified Category: Medical Plan Follow up in 4 weeks for type 2 diabetes. Medications: New blood-glucose,mems process engineer,cont (FreeStyle Tim 3 [place]) Use daily to monitor blood glucose levels continuously. 1 ea 0RF blood sugar diagnostic (OneTouch Verio test strips) Use as directed to check blood glucose four times daily. 100 ea 0RF blood-glucose,mems process engineer,cont (FreeStyle Tim 3 [place]) Use daily to monitor blood glucose levels continuously. 1 ea 0RF blood-glucose sensor (FreeStyle Tim 3 Plus Sensor device) Apply 1 new sensor every 15 days as directed to monitor blood glucose continuously. 2 ea 11RF E16.2 - Hypoglycemia, unspecified, R73.03 - Prediabetes blood-glucose sensor (FreeStyle Tim 3 Plus Sensor device) Apply 1 new sensor every 15 days as directed to monitor blood glucose continuously. 6 ea 3RF E11.3293 - Type 2 diabetes mellitus with mild nonproliferative diabetic retinopathy without macular edema, bilateral, Z79.4 - intermediate (current) use of insulin blood-glucose,mems process engineer,cont (FreeStyle Tim 3 [place]) Use daily to monitor blood glucose levels continuously. 1 ea 0RF Discontinued FreeStyle Tim 2 Plus Sensor (blood-glucose sensor) Discontinued Reason: Doctor's Order As directed 1 ea 5RF NS E11.3293 - Type 2 diabetes mellitus with mild nonproliferative diabetic retinopathy without macular edema, bilateral, Z79.4 - intermediate (current) use of insulin Patient Instructions: If you experience low blood sugar, treat this by eating a chewable fruit candy like skittles or jelly beans (about 8 pieces), 4 ounces (1/2 cup) of fruit juice (not diet), 1 tablespoon of honey or 4 glucose tablets. If your blood sugar is under 55, take double the amount of one of the above. Recheck your blood sugar in 15 minutes. Continue insulin glargine 82 units every evening. The next time you need a refill we will switch to this Toujeo. Continue Ozempic 2 mg weekly Continue Metformin 500 mg once daily Continue Humalog three times daily and administer this 15 minutes before meals. We will call you tomorrow to ask what your sliding scale is. We will do a prior authroization for the Videdressing 3 plus. 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
[2024-08-09 12:51] VITALS: BP 100/56; PULSE 66; O2SAT 97; BMI 29.9
[2024-08-09 13:08] LABS: Glucose, Whole Blood 209 mg/dL (60-115)
== END 2024-08-09 13:42 | disposition home or self-care (01) ==
LOC: HO.ENCR 12:32
PROVIDERS: PCP Internal Medicine; Visit Provider Physician Assistant Medical
DX: E11.3293 Type 2 diabetes mellitus with mild nonproliferative diabetic retinopathy without macular edema, bilateral (principal); Z79.4 Long term (current) use of insulin; N18.9 Chronic kidney disease, unspecified

== ENCOUNTER → 2024-08-09 12:31 | Outpatient (BNVA) | payer MEDICARE, SELFPAY | PROVIDERS: PCP Internal Medicine; Visit Provider Physician Assistant Medical | DX: E11.22 Type 2 diabetes mellitus with diabetic chronic kidney disease (principal); E11.3293 Type 2 diabetes mellitus with mild nonproliferative diabetic retinopathy without macular edema, bilateral; E11.649 Type 2 diabetes mellitus with hypoglycemia without coma; N18.9 Chronic kidney disease, unspecified; Z83.3 Family history of diabetes mellitus; Z79.4 Long term (current) use of insulin | CPT/HCPCS: 82947; 99202 ==

== ENCOUNTER 2024-09-06 12:38 | Outpatient (AMB) | payer MEDICARE, SELFPAY ==
--- NOTE | 2024-09-06 12:42 | MHC.OFFVIS ---
Vital Signs 09/06/24 12:43 Height 5 ft 6.5 in Weight 186 lb 4.65 oz BMI 29.6 BP 110/64 Blood Pressure Location Rt brachial Position Sitting Pulse 64 Pulse Source Pulse Oximeter Pulse Oximetry (%) 98 Oxygen Delivery Method Room Air Intake Visit Reasons: Type II diabetes Intake Note: Patient present today for T2DM Patient receives Tim 3 Plus sensor through: [facility] Last Diabetic Eye exam: 08/18/2023 [facility] Last Podiatry Visit: Has a nurse that visits home through [place], last visit 08/09/24. Random Glucose: 186 mg/dl HgA1C: 10.0% 07/25/2024 Senior Training And Development Rep Required: No Accompanied by: Self / Same As Patient Allergies No Known Allergies Allergy (Verified 09/06/24 12:44) Medication List - Last Reconciled 09/06/24 by BENJI Barnard atorvastatin 20 mg PO Q2D 3 months blood sugar diagnostic (OneTouch Verio test strips) USE DIRECTED TO CHECK BLOOD GLUCOSE FOUR TIMES DAILY. blood-glucose sensor (FreeStyle Tim 3 Plus Sensor device) Apply 1 new sensor every 15 days as directed to monitor blood glucose continuously. blood-glucose,radar scientist,cont (FreeStyle Tim 3 [place]) Use daily to monitor blood glucose levels continuously. carvedilol 12.5 mg PO BID cholecalciferol (vitamin D3) (Vitamin D3) 25 mcg PO Q2D cyanocobalamin (vitamin B-12) 1,000 mcg IM Q4W ezetimibe 10 mg PO DAILY furosemide 20 mg PO Q2D gabapentin 300 mg PO DAILY insulin lispro subcut metformin ER 500 mg PO DAILY Ozempic (semaglutide) 2 mg (0.75 mL) subcut QWEEK 30 days NS pen needle, diabetic As directed spironolactone 25 mg PO DAILY Toujeo SoloStar U-300 Insulin (insulin glargine U-300 conc) 82 units (0.2733 mL) subcut BEDTIME NS HPI Comments Details: This is an 83-year-old female with a past medical history of type 2 diabetes, chronic kidney disease, CAD, sick sinus syndrome s/p placement of cardiac pacemaker and left breast cancer presenting for diabetes management and CGM placement. She was diagnosed with diabetes in 1991. There is a family history of diabetes: son, daughter (), many of her family members on her mother's side of the family have type 2 diabetes. There is no known family history of type 1 diabetes. Hemoglobin a1c 10% 07/25/24. Current medication regimen: Ozempic 2 mg weekly, Metformin extended release 500 mg daily, insulin glargine 82 units every evening, humalog per sliding scale: Humalog sliding scale: Blood sugar under 150 take 0 units Blood sugar 150-199 mg/dL take 8 units Blood sugar 200-249 mg/dL take 10 units Blood sugar 250-299 mg/dL take 12 units Blood sugar 300-349 mg/dL take 14 units Blood sugar 350-399 mg/dL take 16 units Blood sugar >/=400 mg /dL take 18 units Past medication: Glipizide and Jardiance. She did not tolerate side effects of the medications. She says Jardiance caused stomach upset. Compliance issues: none Diet: Breakfast- toast with peanut butter or banana, coffee with half and half Lunch-protein, vegetables, potato, water or milk Dinner- sandwich, bowl of cereal, salad Snacks/desserts: no sugar added juice, low sugar cookies Hypoglycemia symptoms: No interval episodes. In the past she had shakiness and sweating with hypoglycemia. She has glucose tablets at home. Hyperglycemia symptoms: none Microvascular complications: neuropathy, nephropathy ([facility]D followed by [facility]), retinopathy (Dr. Sewell) Macrovascular complications: CAD (Dr. Leon) Hypertension: treated with carvedilol 12.5 mg twice daily, spironolactone 25 mg daily Hyperlipidemia: treated with Zetia 10 mg, atorvastatin 20 mg ROS: Constitutional: No unexplained weight loss, fever, chills or night sweats. Eyes: No vision changes, blurry vision, double vision, eye pain, eye redness, eye discharge. Respiratory: No shortness of breath Cardiovascular: No chest pain Gastrointestinal: No anorexia, nausea, vomiting or diarrhea. No abdominal pain Neurologic: No headache, dizziness, syncope, +neuropathy in her feet Skin: No open wounds Endocrine: No cold or heat intolerance. See HPI Physical exam: Constitutional: Alert, in no distress. Head: Normocephalic. Eyes: Pupils are equal, round and reactive to light. Extraocular muscles intact. Neck: Supple, Full range of motion. No lymphadenopathy. No palpable thyroid masses. Respiratory: Clear to auscultation. Cardiovascular: S1 S2 regular. No murmurs. No carotid bruits. 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 Mother Mental health disorder Social History Housing: Apartment Alcohol intake: former Patient Tobacco Use Status: Never used Tobacco e-Cigarette/Vaping Use: Never Used Current occupational status: retired Cognitive needs: No Hearing needs: No Vision needs: Yes Physical Exam Vital Signs: Last Vital Signs Pulse 64 09/06/24 12:43 BP 110/64 09/06/24 12:43 Pulse Ox 98 09/06/24 12:43 Oxygen Delivery Method Room Air 09/06/24 12:43 BMI result Body Mass Index 29.6 Results Reviewed Results Reviewed: Laboratory Last Values Glucose (Clinic) 186 mg/dL (60-115) H 09/06/24 12:49 Laboratory Tests 09/02/23 02/19/24 04/01/24 12:49 08:35 12:59 Creatinine 1.36 1.13 Estimated GFR 37 46 Hgb A1c (Clinic) 11.7 H Hemoglobin A1c % 8.9 H AST ALT Triglycerides Cholesterol LDL Cholesterol, Calc HDL Cholesterol Vitamin B12 25-OH Vitamin D Total Urine Creatinine Urine Microalbumin Microalb/Creat Ratio 04/01/24 07/21/24 07/25/24 13:09 08:53 10:20 Creatinine Estimated GFR Hgb A1c (Clinic) 10.0 H Hemoglobin A1c % AST 36 H ALT 37 H Triglycerides 211 H Cholesterol 168 LDL Cholesterol, Calc 86 HDL Cholesterol 40 L Vitamin B12 894 25-OH Vitamin D Total 42.6 Urine Creatinine 37.02 Urine Microalbumin 10.0 Microalb/Creat Ratio 27.0 Assessment & Plan Assessment & Plan (1) 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 Discussed pathophysiology of Type II Diabetes Mellitus with the patient in detail.? 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 Discussed lifestyle modification with the patient. Declined referral to family educator and dietitian. CGM education completed. She left with [employer] in warm up. I recommended switching insulin glargine to Toujeo since she is on a higher dose of basal insulin and this is preferred to reduce the risk of hypoglycemia. Continue Ozempic 2 mg weekly. Continue Metformin 500 mg once daily Continue Humalog three times daily, and administer this 15 minutes before meals.Humalog sliding scale: Blood sugar under 150 take 0 units Blood sugar 150-199 mg/dL take 8 units Blood sugar 200-249 mg/dL take 10 units Blood sugar 250-299 mg/dL take 12 units Blood sugar 300-349 mg/dL take 14 units Blood sugar 350-399 mg/dL take 16 units Blood sugar >/=400 mg /dL take 18 units I will see her back in 2 weeks to review sensor data. (2) CKD (chronic kidney disease): Code(s): N18.9 - Chronic kidney disease, unspecified Category: Medical Plan: She did not tolerate dot Jardiance. Consider trial of Invokana. She does not want to add more medication at this time. Avoid nephrotoxic medications. Plan Follow up in 2 weeks for type 2 diabetes. Medications: New Toujeo SoloStar U-300 Insulin (insulin glargine U-300 conc) Replaces insulin glargine 82 units (0.2733 mL) subcut BEDTIME 4.5 mL 5RF NS Refilled blood-glucose sensor (FreeStyle Tim 3 Plus Sensor device) Apply 1 new sensor every 15 days as directed to monitor blood glucose continuously. 6 ea 3RF E11.3293 - Type 2 diabetes mellitus with mild nonproliferative diabetic retinopathy without macular edema, bilateral, Z79.4 - intermediate card tender (current) use of insulin Patient Instructions: If you experience low blood sugar, treat this by eating a chewable fruit candy like skittles or jelly beans (about 8 pieces), 4 ounces (1/2 cup) of fruit juice (not diet), 1 tablespoon of honey or 4 glucose tablets. If your blood sugar is under 55, take double the amount of one of the above. Recheck your blood sugar in 15 minutes. 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
[2024-09-06 12:43] VITALS: BP 110/64; PULSE 64; O2SAT 98; BMI 29.6
[2024-09-06 12:54] LABS: Glucose, Whole Blood 186 mg/dL (60-115)
--- OUTSIDE RECORDS SUMMARY | 2024-09-06 14:10 | XMS_ITS | Encounter Summary ---
Author Organization [facility] Address [address] [place] [address] Phone Care Team Providers Care Modeling Instructor Name Role Phone Beth Enrique MD Primary Care Provider [phone] Reason for Visit * Reason Onset Date Comments RX refill 10/09/2021 Encounter Details Date Type Department Care Team (Late st Contact Info) Description 10/09/2021 Telephone [facility] [address] [place] [address] Aniya Mcallister Social History Tobacco Use Types Packs/Day Years [...] Care Team (Late st Contact Info) Description 09/11/2024 Orders Only [facility] [address] [address] Hazel Greer ARNP [address] [address] Hypertension; Stage 3b chronic kidney disease (HCC) 10/18/2024 10:00 AM EDT Office Visit [facility] [address] [address] Hazel Greer ARNP [address] [address] documented as of this encounter Visit Diagnoses Diagnosis Type 2 diabetes mellitus with other diabetic kidney complication (HCC)- Primary Hypertension Stage 3b chronic kidney disease (HCC) documented in this encounter Care Teams Modeling Instructor Relationship Specialty Start Date End Date Beth Enrique MD [facility] [place] [address] PCP - General 03/26/20 documented as of this encounter
== END 2024-09-06 13:36 | disposition home or self-care (01) ==
LOC: HO.ENCR 12:38
PROVIDERS: PCP Internal Medicine; Visit Provider Physician Assistant Medical
DX: E11.3293 Type 2 diabetes mellitus with mild nonproliferative diabetic retinopathy without macular edema, bilateral (principal); Z79.4 Long term (current) use of insulin; N18.9 Chronic kidney disease, unspecified

== ENCOUNTER → 2024-09-06 12:38 | Outpatient (BNVA) | payer MEDICARE, SELFPAY | PROVIDERS: PCP Internal Medicine; Visit Provider Physician Assistant Medical | DX: E11.3293 Type 2 diabetes mellitus with mild nonproliferative diabetic retinopathy without macular edema, bilateral (principal); Z79.4 Long term (current) use of insulin; N18.9 Chronic kidney disease, unspecified | CPT/HCPCS: 82947; 99212 ==

== ENCOUNTER 2024-09-30 10:17 | Outpatient (AMB) | payer MEDICARE, SELFPAY ==
--- NOTE | 2024-09-30 10:20 | A.OFFVIS_ITS ---
Vital Signs 09/30/24 10:23 Height 5 ft 6.5 in Weight 183 lb 3.266 oz BMI 29.1 BP 130/62 Blood Pressure Location Rt brachial Position Sitting Pulse 61 Pulse Source Pulse Oximeter Pulse Oximetry (%) 95 Oxygen Delivery Method Room Air Intake Visit Reasons: Type II diabetes Intake Note: Patient present today for T2DM Patient receives Tim 3 Plus sensor through: [facility] Last Diabetic Eye exam: 08/18/2023 [facility] Last Podiatry Visit: Has a nurse that visits home through [facility], last visit 08/09/24. Random Glucose: 294 mg/dl HgA1C: 10.0% 07/25/2024 [employer] Required: No Accompanied by: Self / Same As Patient Allergies No Known Allergies Allergy (Verified 09/30/24 10:24) Medication List - Last Reconciled 09/30/24 by BENJI Barnard atorvastatin 20 mg PO Q2D 3 months blood sugar diagnostic (HuupyTouch Verio test strips) USE DIRECTED TO CHECK BLOOD GLUCOSE FOUR TIMES DAILY. blood-glucose sensor (FreeStyle Tim 3 Plus Sensor device) Apply 1 new sensor every 15 days as directed to monitor blood glucose continuously. 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 carvedilol 12.5 mg PO BID cholecalciferol (vitamin D3) (Vitamin D3) 25 mcg PO Q2D cyanocobalamin (vitamin B-12) 1,000 mcg IM Q4W ezetimibe 10 mg PO DAILY furosemide 20 mg PO Q2D gabapentin 300 mg PO DAILY insulin glargine U-300 conc (Toujeo Max U-300 SoloStar) 82 units (0.2733 mL) subcut BEDTIME insulin lispro subcut metformin ER 500 mg PO DAILY Ozempic (semaglutide) 2 mg (0.75 mL) subcut QWEEK 30 days NS pen needle, diabetic As directed spironolactone 25 mg PO DAILY HPI Comments Details: This is an 83-year-old female with a past medical history of type 2 diabetes, chronic kidney disease, CAD, sick sinus syndrome s/p placement of cardiac pacemaker and left breast cancer presenting for diabetes management and CGM placement. She was diagnosed with diabetes in 1991. There is a family history of diabetes: son, daughter (), many of her family members on her mother's side of the family have type 2 diabetes. There is no known family history of type 1 diabetes. Hemoglobin a1c 10% 07/25/24. 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 Current medication regimen: Ozempic 2 mg weekly, Metformin extended release 500 mg daily, toujeo 82 units every evening, humalog per sliding scale: Humalog sliding scale: Blood sugar under 150 take 0 units Blood sugar 150-199 mg/dL take 8 units Blood sugar 200-249 mg/dL take 10 units Blood sugar 250-299 mg/dL take 12 units Blood sugar 300-349 mg/dL take 14 units Blood sugar 350-399 mg/dL take 16 units Blood sugar >/=400 mg /dL take 18 units This morning her blood sugar was 138 before eating toast and coffee so she did not administer Humalog, and her blood sugar now is 294. Past medication: Glipizide and Jardiance. She did not tolerate side effects of the medications. She says Jardiance caused stomach upset. Insulin glargine discontinued to switched to Toujeo, but she did not start it yet. Compliance issues: none Hypoglycemia symptoms: No interval episodes. In the past she had shakiness and sweating with hypoglycemia. She has glucose tablets at home. Hyperglycemia symptoms: none Microvascular complications: neuropathy, nephropathy ([facility]), retinopathy (Dr. Sewell) Macrovascular complications: CAD (Dr. Leon) Hypertension: treated with carvedilol 12.5 mg twice daily, spironolactone 25 mg daily Hyperlipidemia: treated with Zetia 10 mg, atorvastatin 20 mg ROS: Constitutional: No unexplained weight loss, fever, chills or night sweats. Eyes: No vision changes, blurry vision, double vision, eye pain, eye redness, eye discharge. Respiratory: No shortness of breath Cardiovascular: No chest pain Gastrointestinal: No anorexia, nausea, vomiting or diarrhea. No abdominal pain Neurologic: No headache, dizziness, syncope, +neuropathy in her feet Skin: No open wounds Endocrine: No cold or heat intolerance. See HPI Physical exam: Constitutional: Alert, in no distress. Head: Normocephalic. Eyes: Pupils are equal, round and reactive to light. Extraocular muscles intact. Neck: Supple, Full range of motion. No lymphadenopathy. No palpable thyroid masses. Respiratory: Clear to auscultation. Cardiovascular: S1 S2 regular. No murmurs. No carotid bruits. 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 Mother Mental health disorder Social History Housing: Apartment Alcohol intake: former Patient Tobacco Use Status: Never used Tobacco e-Cigarette/Vaping Use: Never Used Current occupational status: retired Cognitive needs: No Hearing needs: No Vision needs: Yes Physical Exam Vital Signs: Last Vital Signs Pulse 61 09/30/24 10:23 BP 130/62 09/30/24 10:23 Pulse Ox 95 09/30/24 10:23 Oxygen Delivery Method Room Air 09/30/24 10:23 BMI result Body Mass Index 29.1 Office Procedures Glucose Monitoring Details Details: see HPI 58179 - Glucose monitoring, continuous-physician I&R Procedure code (CPT) selection complete Results Reviewed Results Reviewed: Laboratory Last Values Glucose (Clinic) 294 mg/dL (60-115) H 09/30/24 10:28 Laboratory Tests 09/02/23 02/19/24 04/01/24 12:49 08:35 12:59 Creatinine 1.36 1.13 Estimated GFR 37 46 Hgb A1c (Clinic) 11.7 H Hemoglobin A1c % 8.9 H AST ALT Triglycerides Cholesterol LDL Cholesterol, Calc HDL Cholesterol Vitamin B12 25-OH Vitamin D Total Urine Creatinine Urine Microalbumin Microalb/Creat Ratio 04/01/24 07/21/24 07/25/24 13:09 08:53 10:20 Creatinine Estimated GFR Hgb A1c (Clinic) 10.0 H Hemoglobin A1c % AST 36 H ALT 37 H Triglycerides 211 H Cholesterol 168 LDL Cholesterol, Calc 86 HDL Cholesterol 40 L Vitamin B12 894 25-OH Vitamin D Total 42.6 Urine Creatinine 37.02 Urine Microalbumin 10.0 Microalb/Creat Ratio 27.0 Assessment & Plan Assessment & Plan (1) Type 2 diabetes mellitus with mild nonproliferative retinopathy of both ey es, with long-term current use of insulin: Code(s): E11.3293 - Type 2 diabetes mellitus with mild nonproliferative diabetic retinopathy without macular edema, bilateral; 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 Discussed pathophysiology of Type II Diabetes Mellitus with the patient in [facility].? 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 Discussed lifestyle modification with the patient. Declined referral to paraeducator and dietitian. She has one touch ultra glucometer, lancets and test strips, and she did not need refills today. Start Toujeo 82 units nightly. Continue Ozempic 2 mg weekly. Continue Metformin 500 mg once daily Continue Humalog three times daily, and administer this 15 minutes before meals. Adjust Humalog sliding scale: Blood sugar under 120 take 0 units Blood sugar 121-149 Take 8 units Blood sugar 150-199 mg/dL take 10 units Blood sugar 200-249 mg/dL take 12 units Blood sugar 250-299 mg/dL take 14 units Blood sugar 300-349 mg/dL take 16 units Blood sugar 350-399 mg/dL take 18 units Blood sugar >/=400 mg /dL take 20 units (2) CKD (chronic kidney disease): Code(s): N18.9 - Chronic kidney disease, unspecified Category: Medical Qualifiers: Chronic kidney disease stage: stage 3 (moderate) Chronic kidney disease stage 3 subtype: stage 3b (GFR 30-44) Qualified Code(s): N18.32 - Chronic kidney disease, stage 3b Plan: She did not tolerate dot Jardiance. Consider trial of Invokana. She does not want to add more medication at this time. Avoid nephrotoxic medications. Plan Follow up in 4-6 weeks for type 2 diabetes. Orders: Orders AMB Glucose Monitoring Today E11.9 - Type 2 diabetes mellitus without complications Patient Instructions: Medication instructions: Start Toujeo 82 units nightly. Continue Ozempic 2 mg weekly. Continue Metformin 500 mg once daily Continue Humalog three times daily, and administer this 15 minutes before meals.Humalog sliding scale: Blood sugar under 120 take 0 units Blood sugar 121-149 Take 8 units Blood sugar 150-199 mg/dL take 10 units Blood sugar 200-249 mg/dL take 12 units Blood sugar 250-299 mg/dL take 14 units Blood sugar 300-349 mg/dL take 16 units Blood sugar 350-399 mg/dL take 18 units Blood sugar >/=400 mg /dL take 20 units If you experience low blood sugar (under 70), treat this by eating a chewable fruit candy like skittles or jelly beans (about 8 pieces), 4 ounces (1/2 cup) of fruit juice (not diet), 1 tablespoon of honey or 4 glucose tablets. If your blood sugar is under 55, take double the amount of one of the above. Recheck your blood sugar in 15 minutes. 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
[2024-09-30 10:23] VITALS: BP 130/62; PULSE 61; O2SAT 95; BMI 29.1
[2024-09-30 10:32] LABS: Glucose, Whole Blood 294 mg/dL (60-115)
--- OUTSIDE RECORDS SUMMARY | 2024-09-30 10:35 | XMS_ITS | Encounter Summary ---
Author Organization [facility] Address [address] [address] Phone Care Team Providers Care Clinical Research Nurse Coordinator Name Role Phone Beth Enrique MD Primary Care Provider [phone] Encounter Details Date Type Department Care Team (Late Contact Info) Description 04/10/2024 Office Communication [facility] [address] [place] [id number] Hazel Greer ARNP [address] [id number] Social History Tobacco Use Types [...] EDT Office Visit [facility] [address] [id number] Hazel Greer ARNP [address] [id number] documented as of this encounter Visit Diagnoses Not on filedocumented in this encounter Care Teams Clinical Research Nurse Coordinator Relationship Specialty Start Date End Date Beth Enrique MD [address] [place] [id number] PCP - General 03/26/20 documented as of this encounter
--- OUTSIDE RECORDS SUMMARY | 2024-09-30 10:35 | XMS_ITS | Clinical Summary ---
Author Organization [address] [place] [address] Address [address] [place] [address] Phone Care Team Providers Care Electronic Maintenance Supervisor Name Role Phone Cami Enrique MD Primary Care Provider [phone]- [phone] Allergies No known active allergies Medications gabapentin (NEURONTIN) 300 mg capsule Take 1 Capsule by mouth at bedtime. Active aspirin 81 mg EC tablet Take 1 tablet by mouth daily. Active cholecalcifero l (VITAMIN D-3) 25 mcg (1,000 unit) capsule Take 1 capsule by mouth daily. Active atorvastatin (LIPITOR) 20 mg tablet Take 20 mg by mouth daily. Active cyanocobalamin (VITAMIN B-12) 1,000 mcg tablet Take 1,000 mcg by mouth. Active ezetimibe (ZETIA) 10 mg tablet Take 10 mg by mouth daily. Active insulin glargine,hum.r ec.anlog (INSULIN GLARGINE SUBQ) Inject 82 Units into the skin at bedtime. Active INSULIN LISPRO SUBQ Inject into the skin. Sliding scale Active semaglutide (OZEMPIC SUBQ) Inject under the skin. Active metFORMIN (GLUCOPHAGE) 500 mg tablet Take 1 tablet (500 mg total) by mouth 1 (one) time each day with breakfast. Active furosemide (LASIX) 20 mg tablet TAKE 1 TABLET BY MOUTH EVERY OTHER DAY 45 tablet 2 5 Active spironolactone (ALDACTONE) 25 mg tablet Take 1 tablet (25 mg total) by mouth 1 (one) time each day. 90 tablet 2 5 Active carvediloL (COREG) 12.5 mg tablet TAKE 1 TABLET BY MOUTH TWICE DAILY 180 tablet 2 5 Active carvediloL (COREG) 12.5 mg tablet TAKE 1 TABLET BY MOUTH TWICE A DAY 4 10/01/19 25 Discontinued Active Problems Problem Noted Date Diagnosed Date Diastolic dysfunction 06/07/2024 Hyperlipidemia associated wi th type 2 diabetes mellitus ([facility] V24, [facility] V28) 04/30/2022 Heart failure with recovered ejection fraction (HFrecEF) ([facility] V24, [facility] V28) 11/13/2021 Nonrheumatic mitral valve regurgitation 11/14/19 Sick sinus syndrome ([facility] V24, [facility] V28) 0 11/13/2021 Essential hypertension 10/15/2020 Overview (02/25/2024): Hypertensive disorder Atherosclerotic heart disease 10/11/2020 Dyslipidemia 10/11/2020 Pacemaker 10/11/2020 Type 2 diabetes mellitus, wi thout long-term current use of insulin ([facility] V24, [facility] V28) 10/11/2020 Hypertensive heart disease without congestive he art failure 07/25/2020 Serum creatinine raised 07/25/2020 Stage 2 chronic kidney disease 07/25/2020 Encounters Date Type Department Care Team Description 09/24/2024 12:20 AM EDT Ancillary Procedure [facility] [address] [place] [address] 09/01/2024 Telephone [facility] [address] [place] [address] Eun Wilks NP Results 08/23/2024 Telephone [facility] [address] [place] [address] Edy Herrera MD 08/22/2024 10:30 AM EDT Ancillary Procedure [facility] [address] [place] [address] Nonrheumatic mitral valve regurgitation 08/16/2024 Telephone [facility] [address] [place] [address] Edy Herrera MD from Last 3 Months Surgical History Surgery [...] Sign Reading Time Taken Comments Blood Pressure 129/71 08/22/2024 3:41 PM EDT Pulse 54 06/07/2024 9:25 AM EDT Temperature - - Respiratory Rate - - Oxygen Saturation 96% 06/07/2024 9:25 AM EDT Inhaled Oxygen Concentration - - Weight 83.9 kg (185 lb) 08/22/2024 3:41 PM EDT Height 170.2 cm (5' 7 ) 08/22/2024 3:41 PM EDT Body Mass Index 28.98 08/22/2024 3:41 PM EDT Plan of Treatment Upcoming Encounters Date Type Department Care Team (Late st Contact Info) Description 06/07/2025 10:00 AM EDT Ancillary Procedure [facility] [address] [facility] [address] [place] [id number] Health Maintenance Due Date Last Done Comments Diabetes: Annual GFR (Glomerular Filtration Rate) 1938 Diabetes: Annual Foot Exam 1948 Diabetes: Annual Retina Eye Exam 1948 DTaP,Tdap,and Td Vaccines (1 - Tdap) 1957 Zoster Vaccines (1 of 2) 1957 RSV Immunization Adult Patients (1 - 1-dose 75+ series) 2013 Cholesterol Screening (Lipid Panel) 02/22/2022 Falls Risk Assessment 02/22/2022 Medicare Annual Wellness Visit 02/22/2022 Osteoporosis Screening (Bone Density Screening) 02/22/2022 Social Influencers of Health Screening 02/22/2022 Hypertension/CHF/CAD Annual BMP Blood Test 02/23/2022 Diabetes: Annual Urine Albumin-Creatinine Ratio (uACR) 02/26/2022 Diabetes: Blood Sugar Control Test (HGBA1C) 10/28/2022 04/30/2022 Depression Screening 03/16/2024 COVID-19 Vaccine (7 - Pfizer risk season) 2024 12/10/2023, 02/20/2023, 07/06/2021, Additional history exists Influenza Vaccine (#1) 2024 , 01/31/2023, 12/05/2021, Additional history exists Pneumococcal Vaccine: 50+ Years Completed 02/25/2022, 12/05/2015 HIB Vaccines Aged [...] this topic Medical Devices Implanted Type Area Restorer Lace [employer] Textiles Device Identifier Shelf Expiration Date Model / Serial / Lot Medt-Card Claria Mri Quad Crtd [id number] Implanted:05/15 (Quantity not on file) Cardiac VETERANS SERVICE REPRESENTATIVE-D ICD [employer] - CARDIAC RHYTH-CRDM CLARIA MRI QUAD CRTD [id number] / [id number] / Procedures Procedure Name Priority Date/Time Associated Diagnosis Comments CARDIAC DEVICE CHECK- REMOTE- MURJ Routine 09/24/2024 12:17 AM EDT TRANSTHORACIC ECHOCARDIOGRAM (TTE) COMPLETE W/ CONTRAST Routine 08/22/2024 11:15 AM EDT Nonrheumatic mitral valve regurgitation from Last 3 Months Results * Cardiac device check - Remote- MURJ (09/24/2024 12:17 AM EDT) Date Time Interrogation Session [id number] CV DEVICE CHECK Type Interrogation Session Remote CV DEVICE CHECK Implantable Pulse Generator Restorer [employer]ace [employer] MDT CV DEVICE CHECK Implantable Pulse Generator Type VETERANS SERVICE REPRESENTATIVE-D CV DEVICE CHECK Implantable Pulse Generator Model Claria MRI Quad CRTD [id number] CV DEVICE CHECK Implantable Pulse Generator Serial Number [id number] CV DEVICE CHECK Implantable Pulse Generator Implant Date [id number] CV DEVICE CHECK Battery Remaining Longevity 93.0 CV DEVICE CHECK Battery Voltage 3.010 CV D EVICE CHECK Battery STROBOROMA OPERATOR Trigger 2.727 CV DEVICE CHECK Battery Status Middle of Service CV DEVICE CHECK Capacitor Charge Time 3.733 CV DEVICE CHECK Claus Statistic RA Percent Paced 3.34 CV DEVICE CHECK Atrial Tachy Statistic AT/AF [place] Percent 0.00 CV DEVICE CHECK Lead Channel Sensing Intrinsic Amplitude 2.750 CV DEVICE CHECK Lead Channel Setting Sensing Sensitivity 0.30 CV DEVICE CHECK Lead Channel Impedance Value 342 CV DEVICE CHECK Lead Channel Pacing Threshold Amplitude 0.750 CV DEVICE CHECK Lead Channel Pacing Threshold Pulse Width 0.4 CV DEVICE CHECK Lead Channel RA Pacing Threshold Date 2024-09-20 CV DEVICE CHECK Lead Channel Setting Pacing Amplitude 1.500 CV DEVICE CHECK Lead Channel Setting Pacing Pulse Width 0.4 CV DEVICE CHECK Lead Channel Sensing Intrinsic Amplitude 0.750 CV DEVICE CHECK Lead Channel Setting Sensing Sensitivity 0.30 CV DEVICE CHECK Lead Channel Impedance Value 494 CV DEVICE CHECK Lead Channel Pacing Threshold Amplitude 0.500 CV DEVICE CHECK Lead Channel Pacing Threshold Pulse Width 0.4 CV DEVICE CHECK Lead Channel RV Pacing Threshold Date 2024-09-20 CV DEVICE CHECK Lead Channel Setting Pacing Amplitude 1.500 CV DEVICE CHECK Lead Channel Setting Pacing Pulse Width 0.4 CV DEVICE CHECK Lead Channel Impedance Value 513 CV DEVICE CHECK Lead Channel Pacing Threshold Amplitude 0.625 CV DEVICE CHECK Lead Channel Pacing Threshold Pulse Width 0.5 CV DEVICE CHECK Lead Channel Pacing Threshold Date 2024-09-20 CV DEVICE CHECK Lead Channel Setting Pacing Amplitude 1.250 CV DEVICE CHECK Lead Channel Setting Pacing Pulse Width 0.5 CV DEVICE CHECK Claus Setting Mode (NBG Code) DDD CV DEVICE CHECK Ventricular chambers paced during VETERANS SERVICE REPRESENTATIVE pacing. BiV CV DEVICE CHECK Claus Setting Lower Rate Limit 50 CV DEVICE CHECK Claus Setting AT Mode Switch Rate 171 CV DEVICE CHECK Claus Setting Maximum Tracking Rate 130 CV DEVICE CHECK Claus Setting Maximum Sensor Rate 120 CV DEVICE CHECK Claus Setting PAV Delay 170 CV DEVICE CHECK Claus Setting MARCY Delay 130 CV DEVICE CHECK VETERANS SERVICE REPRESENTATIVE LV-RV Delay 20 CV D EVICE CHECK Therapy Statistic Recent Shocks Delivered 0 CV DEVICE CHECK Therapy Statistic Recent Shocks Aborted 0 CV DEVICE CHECK Therapy Statistic Recent ATP Delivered 0 CV DEVICE CHECK RV HV Impedance 91 CV D EVICE CHECK Zone Setting Type [...] 6 CV DEVICE CHECK Date of Service 2024-10-17 CV DEVICE CHECK Anatomical Region Laterality Modality Device Interroga tion 09/20/2024 6:16 AM EDT Impressions 09/23/2024 3:53 PM EDT Normal Remote: No Events * Normal Device Function * Alerts or events: None * Battery: OK, 7.75 yrs * Sensing, impedance and thresholds reviewed * Programmed parameters reviewed * Presenting rhythm reviewed * Heart Rate Histograms reviewed * No significant changes noted Heart Failure Diagnostic: Stable * Heart failure diagnostics assessed through the device * Status: Stable * No overt HF present Narrative Procedure Note Edy Herrera MD - 09/24/2024 IMPRESSION: Normal Remote: No Events * Normal Device Function * Alerts or events: None * Battery: OK, 7.75 yrs * Sensing, impedance and thresholds reviewed * Programmed parameters reviewed * Presenting rhythm reviewed * Heart Rate Histograms reviewed * No significant changes noted Heart Failure Diagnostic: Stable * Heart failure diagnostics assessed through the device * Status: Stable * No overt HF present Edy Herrera MD CV IMPLANTABLE CARDIAC DEVICE PROCEDURES Final Result * (ABNORMAL) TRANSTHORACIC ECHOCARDIOGRAM (TTE) COMPLETE W/ CONTRAST (08/22/2024 11:15 AM EDT) LV EDV (A2C) 49 mL CV PACS LV EDV (A4C) 54 mL CV PACS LV Diastolic Volume (BP) 53 46 - 106 mL CV PACS LV ESV (A2C) 18 mL CV PACS LV ESV (A4C) 22 mL CV PACS LV Systolic Volume (BP) 20 14 - 42 mL CV PACS IVSD 1.3(A) 0.6 - 0.9 cm CV PACS LVIDD 4.7 3.8 - 5.2 cm CV PACS LVIDS 3.1 2.2 - 3.5 cm CV PACS LVOT Diameter 2.2 cm CV PACS LVOT Mean Arnol 0.5 m/s CV PACS LVOT Mean Grad 1 mmHg CV PACS LVOT Mean Grad 1 mmHg CV PACS LVOT Peak VTI 17.1 cm CV PACS LVOT Peak Arnol 0.7 m/s CV PACS LVOT Peak Gradient 2 mmHg CV PACS LVPWD 1.3(A) 0.6 - 0.9 cm CV PACS MV E' Tissue Velocity Lateral 4 cm/s CV PACS MV E' Tissue Velocity Septal 4 cm/s CV PACS Ejection Fraction (A2C) 64 % CV PACS Ejection Fraction (A4C) 58 % CV PACS Ejection Fraction (BP) 62 % CV PACS LVOT Area 3.8 cm2 CV PACS LVOT Stroke Volume 65 mL CV PACS Left Atrium Minor [place] 6.2 cm CV PACS Left Atrium Major [place] 6.0 cm CV PACS LA Area Sys (A2C) 25 cm2 CV PACS LA Area Sys (A4C) 21 cm2 CV PACS LA Volume (BP) 71 mL CV PACS LA Size 5.1 cm CV PACS AV Mean Gradient 5 mmHg CV PACS Ao VTI 31.6 cm CV PACS AV Peak Arnol 1.4 m/s CV PACS AV Peak Gradient 8 mmHg CV PACS AV Area Continuity Equation 2.1 cm2 CV PACS AV Area Peak Velocity 2.0 cm2 CV PACS Aortic Sinus Valsalva 3.6 cm CV PACS Ascending Aorta 3.6 cm CV PACS IVC Proximal 1.8 cm CV PACS MV Deceleration Reagan 2.6 m/s2 CV PACS E Wave Deceleration Time 231 119 - 242 ms CV PACS MV PHT 68 ms CV PACS MV Peak A Arnol 0.98 m/s CV PACS MV Peak E Arnol 0.60 m/s CV PACS MV Mean Gradient 1 mmHg CV PACS MV Mean Gradient 1 mmHg CV PACS MV Mean Gradient 1 mmHg CV PACS MV Mean Gradient 1 mmHg CV PACS MV VTI 26.2 cm CV PACS Mitral Valve Max Velocity 0.9 m/s CV PACS MV Peak Gradient 3 mmHg CV PACS MV Area PHT 3.2 cm2 CV PACS MV Area Continuity Equation 2.5 cm2 CV PACS PV Acceleration Time 194 ms CV PACS PV Mean Gradient 1 mmHg CV PACS PV VTI 14.5 cm CV PACS PV Peak Velocity 0.7 m/s CV PACS PV Peak Gradient 2 mmHg CV PACS RV S' 8 cm/s CV PACS TAPSE 22 mm CV PACS TR Peak Velocity 2.09 m/s CV PACS TR Peak Gradient 17 mmHg CV PACS E/E' Ratio Septal 15 CV PACS E/E' Ratio Averaged 15 CV PACS Relative Wall Thickness ratio 0.55 CV PACS LVOT:AV VTI Index 0.54 CV PACS FS 34 % CV PACS LV Mass 2D 238 g CV PACS MV VTI:LVOT VTI ratio 1.5 CV PACS LVOT flow 190 mL/s CV PACS AV Velocity Ratio 0.50 CV PACS E/A Ratio 0.6 CV PACS E/E' Ratio Lateral 15 CV PACS BSA 1.99 m2 CV PACS LV Diastolic Volume Index (BP) 27(A) 29 - 61 mL/m2 CV PACS LV Systolic Volume Index (BP) 10 8 - 24 mL/m2 CV PACS LV EDV Index (A4C) 28 mL/m2 CV PACS LV ESV Index (A4C) 11 mL/m2 CV PACS LV EDV Index (A2C) 25 mL/m2 CV PACS LV ESV Index (A2C) 9 mL/m2 CV PACS LA Volume Index (BP) 36 mL/m2 CV PACS LVIDD Index 2.40 cm/m2 CV PACS LVIDS Index 1.58 cm/m2 CV PACS LV Mass Index 2D 121(A) 44 - 88 g/m2 CV PACS LVOT Stroke Index 33 mL/m2 CV PACS LA Dimension Index 2D 2.6 cm/m2 CV PACS CONSTANTINO Index (VTI) 1.05 cm2/m2 CV PACS CONSTANTINO Index (Pk Arnol) 1.02 cm2/m2 CV PACS Ascending Aorta Index 1.84 cm/m2 CV PACS Right Ventricular Peak Systolic Pressure 20 mmHg CV PACS Est. RA Pressure 3 mmHg CV PACS Anatomical Region Laterality Modality Ultrasound Narrative 08/23/2024 8:40 AM EDT Left ventricle cavity size is normal. There is mild to moderate concentric hypertrophy. Systolic function is normal with an ejection fraction of 65-70%. There are no regional LV wall motion abnormalities. Right ventricle was not well visualized. Aortic valve sclerosis without stenosis or regurgitation. Trace mitral regurgitation. Left Ventricle Left ventricle cavity size is normal. There is mild to moderate concentric hypertrophy. Systolic function is normal with an ejection fraction of 65-70%. There are no regional LV wall motion abnormalities. There is Grade I (mild) diastolic dysfunction. Right Ventricle Right ventricle was not well visualized. A pacer wire is present in the right ventricle. Left Atrium Left atrium cavity is mildly dilated. Right Atrium Right atrium was not well visualized. Right atrium cavity is normal. IVC/SVC Inferior vena cava structure is normal. RA pressures is estimated to be 3 mmHg (IVC diameter <21 mm and decreases >50% during inspiration). Mitral Valve The leaflets are mildly thickened. There is mild annular calcification. There is trace regurgitation. There is no evidence of mitral valve stenosis. Tricuspid Valve The tricuspid valve was not well visualized. There is no significant regurgitation. There is no evidence of tricuspid valve stenosis. Cannot assess RVSP. Aortic Valve The aortic valve is trileaflet. The leaflets are mildly thickened. There is no regurgitation or stenosis. Pulmonic Valve The pulmonic valve was not well visualized. There is trace pulmonic valve regurgitation. There is no evidence of pulmonic valve stenosis. Ascending Aorta The aorta appears normal in size. Pericardium Pericardium appears normal. There is no pericardial effusion. Study Details Overall the study quality was technically difficult. Definity contrast was given to enhance imaging. Eun Wilks AIR LIFT OPERATOR CV ECHO PROCEDURES Final Res ult from Last 3 Months Insurance [employer] Care Teams Electronic Maintenance Supervisor Relationship Specialty Start Date End Date Cami Enrique MD [address] [facility] [place] [phone] PCP - General 09/27/14
--- OUTSIDE RECORDS SUMMARY | 2024-09-30 10:35 | XMS_ITS | Encounter Summary ---
Author Organization [facility] Address [address] [place] [phone] Phone Care Team Providers Care Health Program Analyst Name Role Phone Cami Enrique MD Primary Care Provider Unavailable Reason for Visit * Reason Comments Medication Refill Encounter Details Date Type Department Care Team (Late st Contact Info) Description 09/29/2024 Refill [facility] [address] [place] [address] Gali Goss MD [address] [place] [id number] [email or web address] Medication Refill Social History Tobacco Use Types Packs/Day Years Used Date Smoking Tobacco: Never Passive Smoke Exposure: Past Smokeless Tobacco: Never Alcohol Use Standard Drinks/Week Comments Never 0 (1 standard drink = 0.6 oz pur e alcohol) Education Answer Date Recorded Are you interested in more education? Not on bettina e 07/11/2022 Are you concerned about learning? Not on file 07/11/2022 No 07/11/2022 No 07/11/2022 Digital Access Answer Date Recorded No 08/11/2022 No 08/11/2022 Reliable internet access at home? Not on file 08/11/2022 Device with a working camera? Not on file Comments No Sex and Gender Information Value Date Recorded Sex Assigned at Not on file Legal Sex Female 10:13 PM EDT Gender Identity Not on file Sexual Orientation Not on file documented as of this encounter Plan of Treatment Upcoming Encounters Date Type Department Care Team (Late st Contact Info) Description 11/28/2024 11:20 AM EDT Office Visit [facility] [address] [place] [address] Gali Goss MD [address] [phone] [email or web address] documented as of this encounter Visit Diagnoses Diagnosis Type 2 diabetes mellitus with peripheral neuropathy documented in this encounter Care Teams Health Program Analyst Relationship Specialty Start Date End Date Cami Enrique MD PCP - General Internal Medicine 05/30/22 documented as of this encounter Additional Source Comments The information contained in this document represents components of the legal health record. It is not the complete legal health record.[facility]
== END 2024-09-30 11:22 | disposition home or self-care (01) ==
LOC: HO.ENCR 10:18
PROVIDERS: PCP Internal Medicine; Visit Provider Physician Assistant Medical
DX: E11.3293 Type 2 diabetes mellitus with mild nonproliferative diabetic retinopathy without macular edema, bilateral (principal); Z79.4 Long term (current) use of insulin; N18.32 Chronic kidney disease, stage 3b

== ENCOUNTER → 2024-09-30 10:17 | Outpatient (BNVA) | payer MEDICARE, SELFPAY | PROVIDERS: PCP Internal Medicine; Visit Provider Physician Assistant Medical | DX: E11.3293 Type 2 diabetes mellitus with mild nonproliferative diabetic retinopathy without macular edema, bilateral (principal); Z79.4 Long term (current) use of insulin; N18.32 Chronic kidney disease, stage 3b | CPT/HCPCS: 82947; 99212 ==

== ENCOUNTER 2024-11-03 09:36 | Outpatient (REF) | payer MEDICARE, SELFPAY ==
--- OUTSIDE RECORDS SUMMARY | 2024-11-03 10:52 | XMS_ITS | Encounter Summary ---
Author Organization [facility] Address [address] [address] Phone Care Team Providers Care Cylinder Handler Name Role Phone Beth Enrique MD Primary Care Provider [phone]- [phone] Encounter Details Date Type Department Care Team (Late Contact Info) Description 04/10/2024 Office Communication [facility] [address] [place] [phone] Hazel Greer ARNP [address] [address] Social History Tobacco Use Types [...] Department Care Team (Late Contact Info) Description 11/15/2024 11:15 AM EDT Office Visit [facility] [address] [address] Hazel Greer ARNP [address] [address] documented as of this encounter Visit Diagnoses Not on filedocumented in this encounter Care Teams Cylinder Handler Relationship Specialty Start Date End Date Beth Enrique MD [address] [place] [phone] PCP - General 03/26/20 documented as of this encounter
--- OUTSIDE RECORDS SUMMARY | 2024-11-03 10:52 | XMS_ITS | Clinical Summary ---
Author Organization [facility] Address [address] [place] [phone] Phone Care Team Providers Care Court Worker Name Role Phone Cami Enrique MD Primary Care Provider Allergies No known active allergies Medications aspirin 81 MG EC tablet Take 1 tablet by mouth. Active atorvastatin (LIPITOR) 20 MG tablet Take 20 mg by mouth every other day. 023 Active carvedilol (COREG) 12.5 MG tablet Take 12.5 mg by mouth 2 (two) times a day. 023 Active cholecalciferol , vitamin D3, 25 mcg (1,000 unit) capsule Take 1 capsule by mouth. Active cyanocobalamin (VITAMIN B-12) 1,000 mcg/mL injection INJECT 1 ML INTRAMUSCULARLY ONCE EVERY 4 WEEKS FOR 90 DAYS 023 Active ezetimibe (ZETIA) 10 mg tablet TAKE 1 TABLET (10 MG) BY MOUTH DAILY 023 Active furosemide (LASIX) 20 MG tablet 20 mg every other day. Active spironolactone (ALDACTONE) 25 MG tablet Take 25 mg by mouth daily. 023 Active omega 4-pcx-vek-fish oil 1,000 mg (120 mg-180 mg) Cap Take 2 capsules by mouth daily. Active lancets (LANCETS,ULTRA THIN) 26 gauge [facility] as directed 011 Active ONETOUCH VERIO Strp stripsIndicatio ns:Type 2 diabetes mellitus with peripheral neuropathy 1 each by Miscellaneous route 3 (three) times a day. 300 strip 3 023 Active FREESTYLE RAFAEL 2 SENSOR kitIndications: DM type 2 with diabetic peripheral neuropathy TO MONITOR BLOOD GLUCOSE, DX E11.42 ON INSULIN, TO CHANGE THE SENSOR EVERY 14 DAYS 6 kit 2 024 Active gabapentin (NEURONTIN) 300 MG capsuleIndicati ons:DM type 2 with diabetic peripheral neuropathy TAKE 1 CAPSULE BY MOUTH NIGHTLY AT BEDTIME. 90 capsule 1 024 Active BD INSULIN SYRINGE ULTRA-FINE 1 mL 31 gauge x 07/29 SyrgIndications :Type 2 diabetes mellitus with peripheral neuropathy USE 1 EACH 4 TIMES A DAY 400 each 3 025 Active OZEMPIC 1 mg/dose (4 mg/3 mL) subcutaneous injection penIndications: Type 2 diabetes mellitus with peripheral neuropathy INJECT 1 MG UNDER THE SKIN EVERY 7 DAYS 3 mL 5 025 Active LANTUS U-100 INSULIN 100 unit/mL injection vialIndications :Type 2 diabetes mellitus with peripheral neuropathy Inject 82 Units under the skin daily. 80 mL 1 025 Active metFORMIN (GLUCOPHAGE-XR) 500 MG 24 hr tabletIndicatio ns:Type 2 diabetes mellitus with peripheral neuropathy TAKE 1 TABLET BY MOUTH DAILY WITH BREAKFAST 90 tablet 1 025 Active insulin lispro (HUMALOG U-100 INSULIN) 100 unit/mL injection vialIndications :Type 2 diabetes mellitus with retinopathy, with long-term current use of insulin INJECT 22 TO 25 UNITS BEFORE BREAKFAST 30 UNITS BEFORE LUNCH AND 30 UNITS BEFORE SUPPER 90 mL 2 025 Active insulin lispro (HUMALOG U-100 INSULIN) 100 unit/mL injection vialIndications :Type 2 diabetes mellitus with retinopathy, with long-term current use of insulin INJECT 22 TO 25 UNITS BEFORE BREAKFAST, 30 UNITS BEFORE LUNCH, AND 30 UNITS BEFORE SUPPER. 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 Patient has been unable to fill the prescription on the Trulicity because of shortage for the last 2 months. Off of the Jardiance because of yeast infection. She remains on Lantus 82-83 units at bedtime and Humalog by sliding scale between 35 to 45 units 3 times a day daily before or after meals as well as 500 mg metformin at breakfast. Plan : - increase Lantus dose by taking it twice a day, 50 units in the morning and 50 units at bedtime. -Continue current Humalog 3 times a day before meals. -change Rx to Ozempic once a week. Start with 0.5 mg once a week and if no side effects after 2 weeks, increase the dose to 1 mg weekly. -ask the pharmacist to show how to use Ozempic pen. -Continue the metformin 500 mg in the morning. Will request recent blood work from your PCP and if kidney function allows we may increase the metformin to 1000 mg daily. Peripheral neuropathy 06/03/2022 Retinopathy 06/03/2022 Type 2 diabetes mellitus with peripheral neuropa thy 05/21/2022 Assessment & Plan (03/30/2024 11:41 AM EST): Improved but suboptimal control by rafael CGM download. Average glucose 204, GMI 8.2. No frequent or severe hypoglycemia. Postprandial highs starting after breakfast. She takes Humalog by sliding scale right before or right after meals starting for blood sugar over 100 with 2-14 units. Remains on Lantus 82 units at bedtime and metformin 500 mg in the morning. She noticed more frequent bowel movements after Ozempic increased to 1 mg weekly in November. Patient is having a generous snack at night because of worry about having overnight lows. Reports stable retinopathy, has follow-up with Dr. Sewell every 6 months. Neuropathy symptoms on feet are controlled with gabapentin. Has follow-up with filter tank tender soon. Waiting for labs done in 02/2024 at [facility] by PCP. -Patient declined increasing the Ozempic to 2 mg weekly, will continue 1 mg weekly -She agreed to increase her Humalog sliding scale by 2 to 3 units before meals -Continue Lantus 82 units at bedtime for now -Continue metformin 500 mg daily -Decrease bedtime snacks, aim for 15 g of total carbs per snacks -Reviewed symptoms, prevention and treatment of hypoglycemia. -Call if blood sugar below 70 or over 250 repeatedly -Follow-up with Allegra and with me in October Assessment & Plan (11/25/2023 11:03 AM EDT): Control is improving based upon the patient's freestyle rafael 2 sensor download. No frequent or severe hypoglycemia. She is tolerating the 0.5 mg dosing of ozempic well. It has helped lower her glucose levels. Will increase her dosing to 1 mg weekly to see if this further helps improve her glucose control. Continue to work on eating healthy and being active. To call or message with any issues managing her glucose levels. Up to date with [facility]. Labs orders Assessment & Plan (05/22/2023 10:16 AM EST): Control is suboptimal based upon the patient's freestyle rafael 2 sensor download. No frequent or severe hypoglycemia. She is not sure what is causing her glucose levels to run so high all of the time. She would like to try adding back a low dose of metformin to her regimen to help. Will add 500 of extended release metformin to see if this helps improve her control. Will increase her trulicity from 3 mg to 4.5 mg. Continue to work on eating healthy and being active. To call or message with any issues managing her glucose levels. Up to date with [facility]. Labs orders Assessment & Plan (09/14/2022 7:02 PM EDT): Poor control by rafael 2 CGM download. Blood sugars rising after breakfast and stay high all day long with some improvement by 9 PM when having her supper. Very high blood sugars overnight related to snacking between 1 to 2 AM. She is currently using 82 to 83 units of Lantus at 10 PM and Humalog 22 to 25 units before breakfast, 30 units before lunch and supper. She has been off of her Trulicity for few weeks because of problem getting prescription filled. She has some cushingoid features but her skin thickness is normal and no hyperpigmentation. She denies any recent exogenous steroids. Suggested to check her blood sugars before each main meal and give the Humalog 15-minute before eating instead of after the meal. Try to cut back on the portion of sweets/fruits. I offered her to see the diabetes educators to help with intensive insulin management but she declined. Encouraged to call us if she feels that further education would be helpful. She will continue to use the rafael 2 CGM. She is up-to-date with eye exam, next is scheduled in mid September. She has macular degeneration and what sounds like mild diabetic retinopathy on the right. Asked to request eye report sent to us. Her paresthesia on feet is reasonably controlled on gabapentin. Assessment & Plan (06/03/2022 11:04 AM EDT): Neuropathy symptoms are at baseline. As long as she takes her gabapentin at night before bed she sleeps well without any symptoms Type 2 diabetes mellitus wit h retinopathy, with long-term current use of insulin 05/21/2022 Assessment & Plan (09/14/2022 6:57 PM EDT): Poor control by rafael 2 CGM download. Blood sugars rising after breakfast and stay high all day long with some improvement by 9 PM when having her supper. Very high blood sugars overnight related to snacking between 1 to 2 AM. She is currently using 82 to 83 units of Lantus at 10 PM and Humalog 22 to 25 units before breakfast, 30 units before lunch and supper. She has been off of her Trulicity for few weeks because of problem getting prescription filled. She has some cushingoid features but her skin thickness is normal and no hyperpigmentation. She denies any recent exogenous steroids. Suggested to check her blood sugars before each main meal and give the Humalog 15-minute before eating instead of after the meal. Try to cut back on the portion of sweets/fruits. I offered her to see the diabetes educators to help with intensive insulin management but she declined. Encouraged to call us if she feels that further education would be helpful. She will continue to use the rafael 2 CGM. She is up-to-date with eye exam, next is scheduled in mid September. She has macular degeneration and what sounds like mild diabetic retinopathy on the right. Asked to request eye report sent to us. 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 No frequent or severe hypoglycemia. Her glucose levels are running high throughout the day with the readings being highest after meals. She will increase her humalog at meals by 2-4 units to help with the highs. Continue to work on eating healthy and being active. To call or message with any issues managing her glucose levels. Up to date with [facility]. Labs requested Assessment & Plan (06/03/2022 11:08 AM EDT): Control is suboptimal based upon the patient's SMBG readings. She forgot her freestyle rafael 2 sensor reader to be downloaded. No frequent or severe hypoglycemia. She had one episode of hypoglycemia, she is not sure what caused it but corrected with juice and was fine. She is having issues with getting her sensors now. She was previously getting them from a [employer] but now her insurance will not work with them and needs to have them at the local pharmacy. Will send the prescriptions to her local pharmacy to be picked up. Will maintain her regimen. Continue to work on eating healthy and being active. To call with any issues with her glucose control. Up to date with [facility]. Sees podiatry. Labs ordered for today Encounters Date Type Department Care Team Description 10/14/2024 Refill [facility] [address] [place] [address] Lenka Sutherland PA-C Medication Refill 09/29/2024 Refill [facility] [address] [place] [address] Gali Goss MD Medication Refill 08/17/2024 Refill [facility] [address] [place] [address] Sneha Jordan MA from Last 3 Months Family History Medical History Relation Comments Hyperlipidemia Father Diabetes Mother Cancer Paternal Grandmother Relation Status Comments Father Mother Paternal Grandmother Social History Tobacco Use Types Packs/Day Years Used Date Smoking Tobacco: Never Passive Smoke Exposure: Past Smokeless Tobacco: Never Tobacco Cessation:Counseling Given: No Alcohol Use Standard Drinks/Week Comments Never 0 [...] Sign Reading Time Taken Comments Blood Pressure 142/74 03/30/2024 10:28 AM EST Pulse 67 03/30/2024 10:28 AM EST Temperature 36.5 C (97.7 F) 02/11/2023 8:41 AM EST Respiratory Rate 18 09/08/2022 11:1 9 AM EDT Oxygen Saturation 95% 03/30/2024 10: 28 AM EST Inhaled Oxygen Concentration - - Weight 87.5 kg (192 lb 12.8 oz) 025 10:28 AM EST Height 168.9 cm (5' 6.5 ) 03/30/2024 10 :28 AM EST Body Mass Index 30.66 03/30/2024 10:28 AM EST Plan of Treatment Upcoming Encounters Date Type Department Care Team (Late st Contact Info) Description 11/28/2024 11:20 AM EDT Office Visit [facility] [address] [place] [address] [place] [address] Gali Goss MD [address] [place] [phone] [email or web address] Health Maintenance Due Date Last Done Comments Adult Td,Tdap Booster 1938 DEPRESSION SCREENING 1950 PNEUMOCOCCAL VACCINES (50+ years) (1 of 2 - PCV) 1957 ZOSTER VACCINES (1 of 2) 1988 OSTEOPOROSIS SCREENING INITIAL (ONE-TIME) 10/20/2003 RSV VACCINE (1 - 1-dose 75+ series) 2013 DIABETIC EYE EXAM 05/21/2022 HEMOGLOBIN A1C 09/03/2022 06/03/2022, 04/30/2022 URINE MICROALBUMIN/CREATININE RATIO 04/30/2023 04/30/2022 COVID-19 VACCINE ( season) 2023 CREATININE LEVEL 03/30/2025 03/30/2024, , 09/08/2022, Additional history exists POTASSIUM LEVEL 03/30/2025 03/30/2024, 05/15, 06/03/2022 HEPATITIS A VACCINES Aged Out No long er eligible based on patient's age to complete this topic HIB VACCINES Aged Out No longer eligi ble based on patient's age to complete this topic MENINGOCOCCAL VACCINES (ACWY) Aged Out No longer eligible based on patient's age to complete this topic MENINGOCOCCAL VACCINES (B) Aged Out N o longer eligible based on patient's age to complete this topic Medical Devices Not on file Procedures Procedure Name Priority Date/Time Associated Diagnosis Comments BASIC METABOLIC PANEL Routine 03/30/2024 5:09 PM EST HEMOGLOBIN A1C Routine 06/03/2022 11:14 AM EDT Type 2 diabetes mellitus with hyperglycemia, with long-term current use of insulin from Last 3 Months or Most Recently Relevant to Health Maintenance Results * Basic metabolic panel (03/30/2024 5:09 PM EST) Historical Provider LAB BLOOD ORDERABLES Kelsey tate Result * (ABNORMAL) Hemoglobin A1c (06/03/2022 11:14 AM EDT) HEMOGLOBIN A1C 9.4(H) 4.3 - 5.8 % [facility] Blood 06/03/2022 11:1 4 AM EDT 06/03/2022 11:16 AM EDT Lenka Sutherland PA-C LAB BLOOD ORDERABL ES Final Result [address] [address] from Last 3 Months or Most Recently Relevant to Health Maintenance Insurance [facility] MEDICARE REPLACEMENT [facility] MEDICARE [facility]PLACEMENT [facility] MEDICARE REPLACEMENT [facility] MEDICARE [facility]PLACEMENT [facility] MEDICARE REPLACEMENT [facility] MEDICARE REPLACEMENT Care Teams Court Worker Relationship Specialty Start Date End Date Cami Enrique MD [facility] [place] [address] PCP - General Internal Medicine 05/30/22 Additional Source Comments The information contained in this document represents components of the legal health record. It is not the complete legal health record.[facility]
--- OUTSIDE RECORDS SUMMARY | 2024-11-03 10:52 | XMS_ITS | Clinical Summary ---
Author Organization [address] [place] [address] Address [address] [place] [address] Phone Care Team Providers Care Senior Test Analyst Name Role Phone Cami Enrique MD Primary Care Provider [phone] Allergies No known active allergies Medications gabapentin [...] MOUTH EVERY OTHER DAY 45 tablet 2 07/28/2024 Active spironolactone (ALDACTONE) 25 mg tablet Take 1 tablet (25 mg total) by mouth 1 (one) time each day. 90 tablet 2 08/19/2024 Active carvediloL (COREG) 12.5 mg tablet TAKE 1 TABLET BY MOUTH TWICE DAILY 180 tablet 2 09/30/2024 Active Active Problems Problem Noted Date Diagnosed Date Diastolic dysfunction 06/07/2024 Hyperlipidemia associated wi th type 2 diabetes mellitus ([facility] [place], [facility] V28) 04/30/2022 Heart failure with recovered ejection fraction (HFrecEF) ([facility] [place]24, [facility] V28) 11/13/2021 Nonrheumatic mitral valve regurgitation 11/14/19 Sick sinus syndrome ([facility] [place]24, [facility] V28) 0 11/13/2021 Essential hypertension 10/15/2020 Overview (02/25/2024): Hypertensive disorder Atherosclerotic heart disease 10/11/2020 Dyslipidemia 10/11/2020 Pacemaker 10/11/2020 Type 2 diabetes mellitus, wi thout long-term current use of insulin ([facility] [place]24, [facility] V28) 10/11/2020 Hypertensive heart disease without congestive he art failure 07/25/2020 Serum creatinine raised 07/25/2020 Stage 2 chronic kidney disease 07/25/2020 Encounters Date Type Department Care Team Description 09/24/2024 12:20 AM EDT Ancillary Procedure [facility] [address] [place] [address] 09/01/2024 Telephone [facility] [address] [place] [address] Eun Wilks NP Results 08/23/2024 Telephone [facility] [address] [place] [address] Edy Herrera MD 08/22/2024 10:30 AM EDT Ancillary Procedure [facility] [address] [place] [address] Nonrheumatic mitral valve regurgitation 08/16/2024 Telephone [facility] [address] [place] [address] Edy Herrera MD from Last 3 Months [...] Description 06/07/2025 10:00 AM EDT Ancillary Procedure [facility] [address] [facility] [address] [place] [address] Health Maintenance Due Date Last Done Comments Diabetes: Annual Foot Exam 1950 Diabetes: Annual [...] Hypertension/CHF/CAD Annual BMP Blood Test 02/23/2022 Diabetes: Blood Sugar Control Test (HGBA1C) 10/28/2022 [...] this topic Medical Devices Implanted Type Area Lard Tub Washer Device Identifier Shelf Expiration Date Model / Serial / Lot Medt-Card Claria Mri Quad Crtd [id number] Implanted:05/15 (Quantity not on file) Cardiac SUPERVISORY CBP OFFICER-D ICD [employer] - CARDIAC RHYTH-CRDM CLARIA MRI QUAD CRTD [id number] / [id number] / Procedures Procedure Name Priority Date/Time Associated Diagnosis Comments CARDIAC DEVICE CHECK- REMOTE- MURJ Routine 09/24/2024 12:17 AM EDT TRANSTHORACIC ECHOCARDIOGRAM (TTE) COMPLETE W/ CONTRAST Routine 08/22/2024 11:15 AM EDT Nonrheumatic mitral valve regurgitation from Last 3 Months Results * Cardiac device check - Remote- MURJ (09/24/2024 12:17 AM EDT) Date Time Interrogation Session [id number] CV DEVICE CHECK Type Interrogation Session Remote CV DEVICE CHECK Implantable Pulse Generator Lard Tub Washer MDT CV DEVICE CHECK Implantable Pulse Generator Type SUPERVISORY CBP OFFICER-D CV DEVICE CHECK Implantable Pulse Generator Model Claria MRI Quad CRTD [id number] CV DEVICE CHECK Implantable Pulse Generator Serial Number [id number] CV DEVICE CHECK Implantable Pulse Generator Implant Date [id number] CV DEVICE CHECK Battery Remaining Longevity 93.0 CV DEVICE CHECK Battery Voltage 3.010 CV D EVICE CHECK Battery CLINICAL ASSESSMENT MANAGER Trigger 2.727 CV DEVICE CHECK Battery Status Middle of Service CV DEVICE CHECK Capacitor Charge Time 3.733 CV DEVICE CHECK Claus Statistic RA Percent Paced 3.34 CV DEVICE CHECK Atrial Tachy Statistic AT/AF Union Percent 0.00 CV DEVICE CHECK Lead Channel [...] CV DEVICE CHECK Ventricular chambers paced during SUPERVISORY CBP OFFICER pacing. BiV CV DEVICE CHECK Claus Setting Lower Rate Limit 50 CV DEVICE CHECK Claus Setting AT Mode Switch Rate 171 CV DEVICE CHECK Claus Setting Maximum Tracking Rate 130 CV DEVICE CHECK Claus Setting Maximum Sensor Rate 120 CV DEVICE CHECK Claus Setting PAV Delay 170 CV DEVICE CHECK Claus Setting MARCY Delay 130 CV DEVICE CHECK SUPERVISORY CBP OFFICER LV-RV Delay 20 CV D EVICE CHECK [...] Stable * No overt HF present us Edy Herrera MD CV IMPLANTABLE CARDIAC DEVICE [...] 65 mL CV PACS Left [facility] [place] 6.2 cm CV PACS Left [facility] [place] 6.0 cm CV PACS LA Area Sys [...] Proximal 1.8 cm CV PACS MV Deceleration [place] 2.6 m/s2 CV PACS E Wave Deceleration [...] Definity contrast was given to enhance imaging. us Eun Y Lattanzi FOOD AND BEVERAGE ASSOCIATE CV ECHO PROCEDURES Final Res ult from Last 3 Months Insurance [employer] MEDICARE [employer]AGE Care Teams Senior Test Analyst Relationship Specialty Start Date End Date Cami Enrique MD [address] [facility] [place] [id number] PCP - General 09/27/14
[2024-11-03 13:11] LABS: MANUAL DIFF FLAG NO
[2024-11-03 13:19] LABS: Hematocrit 41.2 % (37.0-47.0); Hemoglobin 14.5 g/dl (12.0-16.0); Imm Gran Abs Auto 0.03 X10*3/uL (0.00-0.03); Imm Gran Pct Auto 0.3 % (0.0-0.4); Lymphocytes Absolute Auto 2.6 X10*3/uL (1.2-4.9); Mean Corpuscular HGB Conc 35.2 g/dl (31.0-35.0); Mean Corpuscular Hemoglobin 31.0 pg (27.0-33.0); Mean Corpuscular Volume 88.2 fL (80.0-98.0); NRBC Abs Auto 0.000 X10*3/uL (0.0-0.012); NRBC Pct Auto 0.0 /100WBC (0.0-0.2); Platelet Count 257 X10*3/uL (160-400); Red Blood Count 4.67 X10*6/uL (4.20-5.50); White Blood Count 8.8 X10*3/uL (4.8-10.8)
[2024-11-03 13:38] LABS: Magnesium 1.8 mg/dL (1.6-2.6)
[2024-11-03 13:41] LABS: Alanine Aminotransferase 27 U/L (0-31); Anion Gap 15 (12-20); Aspartate Amino Transferase 32 U/L (5-31); Blood Urea Nitrogen 23 mg/dL (9-16); Calcium 10.3 mg/dL (8.4-10.2); Carbon Dioxide 24 mmol/L (22-29); Chloride 103 mmol/L (96-108); Cholesterol 173 mg/dL (<200); Estimated Glomerular Filt Rate 39; HDL Cholesterol 37 mg/dL (>40); Potassium 4.5 mmol/L (3.3-5.1); Sodium 137 mmol/L (135-145); Triglycerides 172 mg/dL (<150)
[2024-11-03 13:58] LABS: Microalbum/Creatinine Ratio Ur 24.0 ug/mg cr (<30)
[2024-11-03 14:01] LABS: Protein/Creatinine Ratio, Ur 0.10 (<0.2); Total Protein Urine Random 16 mg/dL (<12)
[2024-11-03 14:02] LABS: Hemoglobin A1C 310.5416 umol/L; Total Hemoglobin (HGBA1C) 3819.3230 umol/L
[2024-11-03 14:04] LABS: Parathyroid Hormone Intact 56.0 pg/mL (8.7-77.1)
== END 2024-11-03 09:37 | disposition home or self-care (01) ==
LOC: HO.HMGCLDS 09:36
PROVIDERS: PCP Internal Medicine; Referring Provider Internal Medicine Nephrology; Visit Provider Internal Medicine
DX: I12.9 Hypertensive chronic kidney disease with stage 1 through stage 4 chronic kidney disease, or unspecified chronic kidney disease (principal); N18.32 Chronic kidney disease, stage 3b; E11.22 Type 2 diabetes mellitus with diabetic chronic kidney disease; E11.3293 Type 2 diabetes mellitus with mild nonproliferative diabetic retinopathy without macular edema, bilateral; Z79.4 Long term (current) use of insulin; E78.2 Mixed hyperlipidemia
CPT/HCPCS: 36415; 80048; 80061; 82043; 82570; 83036; 83735; 83970; 84156; 84450; 84460; 85025

== ENCOUNTER 2024-11-08 08:18 | Outpatient (AMB) | payer MEDICARE, SELFPAY ==
--- OUTSIDE RECORDS SUMMARY | 2024-11-08 08:26 | XMS_ITS | Clinical Summary ---
Author Organization [facility] Address [address] [place] [phone] Phone Care Team Providers Care Warehouse Receiving Clerk Name Role Phone Cami Enrique MD Primary [...] mg by mouth daily. 023 Active omega 6-agp-sli-fish oil 1,000 mg (120 mg-180 mg) Cap Take 2 capsules by mouth daily. Active lancets (LANCETS,ULTRA THIN) 26 gauge [facility] as directed 011 Active ONETOUCH VERIO Strp [...] are controlled with gabapentin. Has follow-up with smoke jumper supervisor soon. Waiting for labs done in 02/2024 at [facility] by PCP. -Patient declined increasing the [...] her glucose levels. Up to date with [facility]. Labs orders Assessment & Plan (05/22/2023 10:16 [...] her glucose levels. Up to date with [facility]. 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 Up to date with [facility]. Labs requested Assessment & Plan (06/03/2022 11:08 [...] She was previously getting them from a [facility] but now her insurance will not work with them and needs to have them at the local pharmacy. Will send the prescriptions to her local pharmacy to be picked up. Will maintain her regimen. Continue to work on eating healthy and being active. To call with any issues with her glucose control. Up to date with [facility]. Sees podiatry. Labs ordered for today Encounters Date Type Department Care Team Description 10/14/2024 Refill [facility] [address] [place] [address] Lenka Sutherland PA-C Medication Refill 09/29/2024 Refill [facility] [address] [place] [address] Gali Goss MD Medication Refill 08/17/2024 Refill [facility] [address] [place] [address] Sneha Jordan MA from Last 3 Months [...] 11:20 AM EDT Office Visit [facility] [address] [place] [address] [place] [address] Gali Goss MD [address] [place] [phone] [email or web address] Health Maintenance Due Date Last Done [...] HEMOGLOBIN A1C 9.4(H) 4.3 - 5.8 % [facility] Blood 06/03/2022 11:1 4 AM EDT 06/03/2022 11:16 AM EDT Lenka Sutherland PA-C LAB BLOOD ORDERABL ES Final Result [address] [address] from Last 3 Months or Most Recently Relevant to Health Maintenance Insurance [facility] REPL[facility] RE[facility] REPLACEMENT Care Teams Warehouse Receiving Clerk Relationship Specialty Start Date End Date Cami Enrique MD [facility] [place] [address] PCP - General Internal Medicine 05/30/22 Additional Source Comments The information contained in this document represents components of the legal health record. It is not the complete legal health record.[facility]
--- OUTSIDE RECORDS SUMMARY | 2024-11-08 08:26 | XMS_ITS | Encounter Summary ---
Author Organization [facility] Address [address] [address] Phone Care Team Providers Care Subscription Clerk Name Role Phone Beth Enrique MD Primary Care Provider +1- [phone] Encounter Details Date Type Department Care Team (Late Contact Info) Description 04/10/2024 Office Communication [facility] [address] [place] [address] Hazel Greer ARNP [address] [address] Social History Tobacco Use Types [...] EDT Office Visit [facility] [address] [address] Hazel Greer ARNP [address] [address] documented as of this encounter Visit Diagnoses Not on filedocumented in this encounter Care Teams Subscription Clerk Relationship Specialty Start Date End Date Beth Enrique MD [address] [place] [address] PCP - General 03/26/20 documented as of this encounter
[2024-11-08 08:27] VITALS: BP 98/62; PULSE 60; RESP 16; TEMP 36.7; O2SAT 96; BMI 29.3
--- NOTE | 2024-11-08 08:27 | MHC.PC.OV ---
Vital Signs 11/08/24 08:27 Height 5 ft 6.5 in Weight 184 lb BMI 29.3 BP 98/62 Blood Pressure Location Lt brachial Position Sitting Respiration 16 Pulse 60 Pulse Source Pulse Oximeter Temp 98.0 F Temp Source Oral Pulse Oximetry (%) 96 Oxygen Delivery Method Room Air Intake Visit Reasons: Annual PE Intake Note: Pt is here today for her PE Allergies No Known Allergies Allergy (Verified 11/14/24 23:09) Medication List - Last Reconciled 11/08/24 by Cami Enrique MD atorvastatin 20 mg PO Q2D 3 months blood sugar diagnostic (AirbnbTouch Verio test strips) USE DIRECTED TO CHECK BLOOD GLUCOSE FOUR TIMES DAILY. blood-glucose sensor ([employer] SportsStyle Tim 3 Plus Sensor device) Apply 1 new sensor every 15 days as directed to monitor blood glucose continuously. blood-glucose,sample clerk,cont (FreeStyle Tim 3 [place]) Use daily to monitor blood glucose levels continuously. carvedilol 12.5 mg PO BID cholecalciferol (vitamin D3) (Vitamin D3) 25 mcg PO Q2D cyanocobalamin (vitamin B-12) 1,000 mcg IM Q4W ezetimibe 10 mg PO DAILY furosemide 20 mg PO Q2D gabapentin 300 mg PO DAILY insulin glargine U-300 conc (Toujeo Max U-300 SoloStar) 82 units (0.2733 mL) subcut BEDTIME insulin lispro subcut metformin ER 500 mg PO DAILY Ozempic (semaglutide) 2 mg (0.75 mL) subcut QWEEK 30 days NS pen needle, diabetic As directed spironolactone 25 mg PO DAILY Tobacco use date assessed: 11/08/24 Fall risk assessment: No Falls in past year Last assessed Fall Risk: 11/08/24 Dental Screening Dental Screen Date: 11/08/24 Did you have a dental visit in the last 12 months?: No Did you have a dental problem in the last 6 months where you did not have access to dental care?: No Was dental information given to patient?: Patient declined HPI Annual PE HPI Details - The patient is an 84-year-old female presenting with a physical examination and management of chronic conditions. - Type 2 Diabetes Mellitus: The patient is on Tujayo, Humalog, and Ozempic. She reports good control in the morning but elevated glucose levels in the evening. Her A1c has fluctuated, currently at 9.6, with previous values of 8.9 and 10.3. She experiences hypoglycemia in the morning and has adjusted her insulin regimen accordingly. - Chronic Kidney Disease: The patient's eGFR is 39, decreased from 46. She is under the care of a bark tanner, Dr. Hazel Greer, and has been advised to stop metformin due to kidney function concerns. She is scheduled for a follow-up next week. - Breast Cancer: The patient has a history of breast cancer and is scheduled for a mammogram in November. She had a mammogram last year and is monitored regularly. - Macular Degeneration: The patient is under the care of Dr. Shaw for macular degeneration and receives regular eye examinations. - Peripheral Neuropathy: The patient reports numbness and tingling in her toes, managed with gabapentin. She attributes these symptoms to her diabetes. 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 Mother Mental health disorder Social History Housing: Apartment Alcohol intake: former Patient Tobacco Use Status: Never used Tobacco e-Cigarette/Vaping Use: Never Used Current occupational status: retired Cognitive needs: No Hearing needs: No Vision needs: Yes Questionnaire PHQ-9 Over the last 2 weeks, how often have you been bothered by any of the following problems? Depression Screening Interpretation: Negative Depression Screening Done: Yes Source: Developed by Drs. Trace Sosa, Joya Mederos, Damaso Qureshi and colleagues, with an educational cipriano from [employer]. Thrive Questionnaire Date Thrive assessed: 02/23/24 I am a: Patient What is your living situation today?: I have a steady place to live Within the past 12 months, did the food you bought not last and you didn't have the money to get more?: Never true Within the past 12 months, did you worry whether your food would run out before you got money to buy more?: Never true Do you have trouble paying for medicines?: No Do you have trouble getting transportation to medical appointments?: No Do you have trouble paying your heating and electricity bill?: No Do you have trouble taking care of your child, family member or friend?: No Do you have trouble with day-to-day activities such as bathing, preparing meals, shopping, managing finances, etc.?: No Are you currently unemployed and looking for a job?: Yes Are you interested in more education?: No Please select the resources that you would like help with: None Currently or been in a relationship where the following occur: No concerns reported THRIVE Score: 0 ANGELLA-7 AMB Questionnaire ANGELLA-7 Date ANGELLA - 7 assessed: 07/25/24 Source: Developed by Drs. Trace Sosa, Joya Mederos, Damaso Qureshi and colleagues, with an educational cipriano from [employer]. Review of Systems Const Denies body aches, Denies fatigue, Denies fever(s) and Denies headache(s) Eyes Details: sees [facility] Denies dizziness, Denies headache(s), Denies nasal congestion, Denies nasal discharge and Denies sore throat Card Denies chest pain, Denies lightheadedness, Denies palpitations and Denies dyspnea Resp Denies chest congestion, Denies cough, Denies dyspnea and Denies wheezing GI Denies abdominal pain, Denies change in bowel habits and Denies heartburn Denies urinary frequency, Denies dysuria and Denies urinary urgency Musc Reports stiffness Skin/Breast Denies lesions and Denies rash Neuro Denies dizziness and Denies headache(s) Psych Reports no additional complaints Endo Denies fatigue, Denies polydipsia, Denies polyuria and Denies palpitations Eloy/Lymph Denies easy bruising Aller/Immun Denies seasonal rhinorrhea and Denies wheezing Physical exam (Primary Care) Vital Signs: Last Vital Signs Temp 98.0 F 11/08/24 08:27 Pulse 60 11/08/24 08:27 Resp 16 11/08/24 08:27 BP 98/62 11/08/24 08:27 Pulse Ox 96 11/08/24 08:27 Oxygen Delivery Method Room Air 11/08/24 08:27 BMI result Body Mass Index 29.3 Tobacco/Smoking Status: Tobacco use Status Tobacco use date assessed 11/08/24 11/08/24 08:41 Patient Tobacco Use Status Never used Tobacco 11/08/24 08:27 e-Cigarette/Vaping Use Never Used 11/08/24 08:27 Depression Screening Interpretation: Negative Thrive Assessment: Date of Thrive Assessment Date Thrive assessed 02/23/24 11/08/24 08:27 Currently or been in a relationship where the following occur: No concerns reported Const General: no acute distress and alert Orientation/consciousness: patient oriented x3 HENMT Ears: external ears normal General nose exam: Normal external nose present and No nasal discharge present Mouth: moist mucous membranes Eyes General: appearance normal, both eyes and all related structures Neck Neck: Yes full ROM, Yes no lymphadenopathy and Yes supple Resp Effort & Inspection: normal respiratory effort and able to speak in complete sentences Auscultation: clear to auscultation bilaterally Cardio Rate: regular rate Rhythm: regular rhythm Heart sounds: S1 normal heart sound present and S2 normal heart sound present GI Palpation (GI): Soft to palpation, nontender and no masses Auscultation: normal bowel sounds General: Yes no CVA tenderness Back/Spine/Pelvis Back: no CVA tenderness and No back tenderness Skin General skin exam: no rashes or lesions noted Neuro General: patient oriented x3, gait normal, moves all extremities, Normal light touch and pain sensation and no focal motor deficits Cranial nerves: Yes CN's II-XII intact bilaterally Cognition (Neuro): normal cognition Extrem Other: Crepitus in both knees General: Yes full ROM, Yes no joint enlargement, Yes no clubbing, cyanosis or edema and Yes no calf tenderness Psych Appearance: grossly normal Mental Status: mental status grossly normal Speech and movement: Normal speech and movement present Affect: normal affect Results Reviewed Results Reviewed: Name: MannySmita mcnallyadrián Tariq Age/Sex: 84/F : 1940 Unit#: [id number] Attend Dr: Cami Enrique MD Re11/03/24 Status: DEP REF Location: [facility] Disch: SPEC : [id number] DAVID: 11/03/24 STATUS: COMP REQ : [id number] RECD: 11/03/24-[address]: Cami Enrique MD COMP: 11/03/24 ENTERED: 11/03/24 [facility] DR: Hazel Greer SELF CONTAINED BEHAVIOR UNIT TEACHER ORDERED: Met Prof Fast, AST, ALT, Lipid Panel Test Result Flag Reference Sodium 137 135-145 mmol/L Potassium 4.5 3.3-5.1 mmol/L CL 103 96-108 mmol/L CO2 24 22-29 mmol/L Gap 15 12-20 BUN 23 H 9-16 mg/dL Creat 1.29 0.5-1.4 mg/dL eGFR 39 Chronic Kidney Disease: Estimated GFR < 60 mL/min/1.73m2 Severe Kidney Disease: Estimated GFR < 15 mL/min/1.73m2 FBS 150 H 60-99 mg/dL A fasting glucose of 126 mg/dl or greater on more than one occasion is considered diagnostic of diabetes. CA 10.3 H 8.4-10.2 mg/dL AST (GOT) 32 H 5-31 U/L ALT (GPT) 27 0-31 U/L Triglyceride 172 H <150 mg/dL Desirable Triglyceride: less than 150 mg/dL Borderline High Triglyceride 150-199 mg/dL High Triglyceride: 200-499 mg/dL Very High Triglyceride: greater than or equal to 5OO mg/dL Cholesterol 173 <200 mg/dL Desirable Cholesterol: less than 200 mg/dL Borderline High Cholesterol: 200-239 mg/dL High Cholesterol: greater than 239 mg/dL LDL Calculated 102 H <100 mg/dL Desirable LDL: less than 100 mg/dL Near Optimal/Above Optimal LDL: 110-129 mg/dL Borderline High LDL: 130-159 mg/dL High LDL: 160-189 mg/dL Very High LDL: greater than or equal to 190 mg/dL HDL 37 L >40 mg/dL Desirable HDL: greater than 40 mg/dL Note: This HDL assay may give artificially low results in patients with liver disease. 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, with long-term current use of insulin E11.3293; Z79.4 Atherosclerotic heart disease I25.10 History of sick sinus syndrome Z86.79 Assessment & Plan Assessment & Plan (1) Annual visit for general adult medical examination with abnormal findings: Code(s): Z00.01 - Encounter for general adult medical examination with abnormal findings (2) CKD (chronic kidney disease): Code(s): N18.9 - Chronic kidney disease, unspecified Category: Medical Qualifiers: Chronic kidney disease stage: stage 3 (moderate) Chronic kidney disease stage 3 subtype: stage 3b (GFR 30-44) Qualified Code(s): N18.32 - Chronic kidney disease, stage 3b (3) Mixed dyslipidemia: Code(s): E78.2 - Mixed hyperlipidemia Category: Medical (4) 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 Madison Code(s): I25.10 - Atherosclerotic heart disease of [place] coronary artery without angina pectoris Category: Medical (6) History of sick sinus syndrome: Code(s): Z86.79 - Personal history of other diseases of the circulatory system Category: Medical Plan Plan Patient was informed and verbally consented to the use of an ambient scribe for clinic note documentation during this visit. 1. Type 2 diabetes mellitus with other specified complication E11.69 HCC 18 The patient's diabetes management includes Tujayo, Humalog, and Ozempic. She experiences hypoglycemia in the morning and elevated glucose levels in the evening. Her A1c is currently 9.6. Adjustments to her insulin regimen have been made to address these fluctuations. 2. Chronic kidney disease, unspecified N18.9 The patient's eGFR is 39, indicating chronic kidney disease. She is under the care of a bark tanner and has been advised to discontinue metformin due to her kidney function. A follow-up appointment is scheduled for next week. 3. Personal history of malignant neoplasm of breast Z85.3 The patient has a history of breast cancer and is scheduled for a mammogram in November. She continues to be monitored regularly for any recurrence. 4. Unspecified macular degeneration H35.30 The patient is receiving regular eye examinations for macular degeneration under the care of Dr. Shaw. 5. Polyneuropathy, unspecified G62.9 The patient experiences numbness and tingling in her toes, managed with gabapentin. These symptoms are attributed to her diabetes.
--- OUTSIDE RECORDS SUMMARY | 2024-11-08 08:27 | XMS_ITS | Clinical Summary ---
Author Organization [facility] Address [address] [address] Phone Care Team Providers Care Forgeman Helper Name Role Phone Beth Enrique MD Primary Care Provider +1- [phone] Allergies No known active allergies Medications aspirin [...] Do not crush, chew, or split. Active Blood Pressure Monitoring (Omron 3 Series BP Monitor) deviceIndicati ons:Hypertensi on,Stage 3b chronic kidney disease (HCC) 1 Device 1 (one) time each day 1 each 5 Active spironolactone (ALDACTONE) 25 MG tabletIndicati ons:Hypertensi on,Stage 3b chronic kidney disease (HCC) TAKE 1 TABLET BY MOUTH 1 TIME EACH DAY. 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 Bryson at [facility] Diabetes mellitus 07/25/2020 Hypertensive heart disease without congestive he art failure 07/25/2020 Hypertension 07/25/2020 Resolved Problems Problem Noted Date Diagnosed Date Resolved Date Chronic kidney disease stage 2 07/25/2020 03/25/2023 Hypertensive disorder 07/25/20202023 Serum creatinine above reference range 07/25/2020 03/25/2023 Chronic kidney disease, stage 2 (mild) 07/25/2020 03/25/2023 Encounters Date Type Department Care Team Description 11/03/2024 Orders Only [facility] [address] [phone] Hazel Greer ARNP 09/13/2024 Refill [facility] [address] [facility] [address] [place] [phone] Hazel Greer ARNP Hypertension; Stage 3b chronic kidney disease (HCC) 09/11/2024 Orders Only [facility] [address] [place] [phone] Hazel Greer ARNP Hypertension; Stage 3b chronic kidney disease (HCC) 08/19/2024 Refill [facility] [address] [place] [phone] Hazel Greer ARNP from Last 3 Months Family History Medical [...] Care Team (Late st Contact Info) Description 11/15/2024 11:15 AM EDT Office Visit [facility] [address] [phone] Hazel Greer ARNP [address] [phone] Health Maintenance Due Date Last Done Comments Pneumococcal Vaccine: 50+ Years (1 of 2 - PCV) 1959 Diabetes: Ophthalmology Exam 04/16/2020 Diabetes: Pedal Pulse Checked 04/16/2020 Diabetes: Sensory Foot Exam 04/16/2020 Diabetes: Visual Foot Exam 04/16/2020 Diabetes: Hemoglobin A1C 07/28/2022 023, 01/10/2020, 06/09/2018 Influenza Vaccine (#1) 2024 Hepatitis B Vaccine Aged Out No longe r eligible based on patient's age to complete this topic Procedures Procedure Name Priority Date/Time Associated Diagnosis Comments PROTEIN / CREATININE RATIO, URINE Routine 11/03/2024 1:15 PM EDT Hypertension Stage 3b chronic kidney disease (HCC) PTH, INTACT (HC) Routine 11/03/2024 12:5 6 PM EDT CBC AND DIFFERENTIAL Routine 11/03/2024 12:56 PM EDT MAGNESIUM Routine 11/03/2024 12:56 PM EDT Hypertension Stage 3b chronic kidney disease (HCC) HEMOGLOBIN A1C Routine 04/30/2022 11:02 AM EST from Last 3 Months or Most Recently Relevant to Health Maintenance Results * (ABNORMAL) Urine Protein / creatinine ratio (11/03/2024 1:15 PM EDT) Creatinine, Urine 153.50 mg/dL See order comments Protein Urine Random 16(H) <12 mg/dL See order comments Protein/Creati nine Ratio, Urine 0.10 <0.2 See order comments Comment: The spot urine protein:creatinine ratio may increase to 0.3 during normal . Urine specimen (specimen) Urine specimen obtained by clean catch procedure / Unknown 11/03/2024 1:15 PM EDT 11/03/2024 1:15 PM EDT Hazel Greer [facility] LAB URINE ORDERABLES Final Result [place] See order comments [place] [address] * PTH, Intact (11/03/2024 12:56 PM EDT) Parathyroid Hormone, Intact 56.0 8.7 - 77.1 pg/mL See order comments 11/03/2024 12:5 6 PM EDT 11/03/2024 12:56 PM EDT Hazel Greer [facility] LAB HISTORICAL-CONVERSIONS- UNSOLICITED RESULTS Final Result [place] See order comments [place] [address] * (ABNORMAL) CBC and Differential (11/03/2024 12:56 PM EDT) WBC 8.8 4.8 - 10.8 X10*3/uL See order comments RBC 4.67 4.20 - 5.50 X10*6/uL See order comments Hgb 14.5 12.0 - 16.0 g/dl See order comments Hematocrit 41.2 37.0 - 47.0 % See order comments MCV 88.2 80.0 - 98.0 fL See order comments MCH 31.0 27.0 - 33.0 pg See order comments MCHC 35.2(H) 31.0 - 35.0 g/dl See order comments RDW 12.7 11.0 - 16.0 % See order comments Platelets 257 160 - 400 X10*3/uL See order comments MPV 10.0 9.4 - 12.3 fL See order comments Neutrophils % Auto 58.0 45 - 73 % See order comments Immature Granulocytes 0.3 0.0 - 0.4 % See order comments Lymphocytes Relative 29.0 20 - 40 % See order comments Monocytes 9.4 2 - 11 % See order comments Eosinophils Relative 2.3 0 - 4 % See order comments Basophils Relative 1.0 0 - 2 % See order comments nRBC Count 0.0 0.0 - 0.2 /100WBC See order comments Neutrophils Absolute 5.1 2.0 - 8.3 x10*3/uL See order comments Immature Grans (Absolute) 0.03 0.00 - 0.03 X10*3/uL See order comments Lymphocytes Absolute 2.6 1.2 - 4.9 X10*3/uL See order comments Monocytes Absolute 0.8 0.1 - 1.2 X10*3/uL See order comments Eosinophils Absolute 0.2 0.0 - 0.4 X10*3/uL See order comments Basophils Absolute 0.1 0.0 - 0.2 X10*3/uL See order comments NRBC Absolute 0.000 0.0 - 0.012 X10*3/uL See order comments 11/03/2024 12:5 6 PM EDT 11/03/2024 12:56 PM EDT Hazel GREWALP LAB BLOOD ORDERABLES Final Result Performing Organization Address [facility] Co de Phone Number [place] See order comments [place] [address] * Magnesium (11/03/2024 12:56 PM EDT) Magnesium 1.8 1.6 - 2.6 mg/dL See order comments Blood specimen (specimen) Venous blood / Unknown 11/03/2024 12:56 PM EDT 11/03/2024 12:56 PM EDT Hazel Greer [facility] LAB BLOOD ORDERABLES Final Result Performing Organization Address [facility] de Phone Number [place] See order comments [place] [address] * (ABNORMAL) Hemoglobin A1c (04/30/2022 11:02 AM [...] MD LAB BLOOD ORDERABLES Final Re sult Performing Organization Address [facility] de Phone Number [place] from Last 3 Months or Most Recently Relevant to Health Maintenance Insurance [place] [employer] MCR/SATYA ([id number]) [place] [employer] MCR/SATYA ([id number]) Care Teams Forgeman Helper Relationship Specialty Start Date End Date Beth Enrique MD [facility] [place]IZA DIAZ [address] PCP - General 03/26/20
--- OUTSIDE RECORDS SUMMARY | 2024-11-08 08:27 | XMS_ITS | Encounter Summary ---
Author Organization [facility] Address [address] [facility] [address] [place] [address] Phone Care Team Providers Care Transit Mixer Driver Name Role Phone Beth Enrique MD Primary Care Provider +1- [phone] Encounter Details Date Type Department Care Team (Late st Contact Info) Description 09/23/2023 Office Communication [facility] [address] [place] [address] Hazel Greer ARNP [address] [facility] [address] [place] [address] Social History Tobacco Use Types [...] Office Visit [facility] [address] [phone] Hazel Greer ARNP [address] [address] documented as of this encounter Visit Diagnoses Not on filedocumented in this encounter Care Teams Transit Mixer Driver Relationship Specialty Start Date End Date Beth Enrique MD [address] [place] [address] PCP - General 03/26/20 documented as of this encounter
--- OUTSIDE RECORDS SUMMARY | 2024-11-08 08:27 | XMS_ITS | Encounter Summary ---
Author Organization [facility] Address [address] [address] Phone Care Team Providers Care Casting Plug Assembler Name Role Phone Beth Enrique MD Primary Care Provider +1- [phone] Encounter Details Date Type Department Care Team (Late Contact Info) Description 11/03/2024 Orders Only [facility] [address] [place] [phone] Hazel Greer ARNP [address] [address] Social History Tobacco Use Types [...] EDT Office Visit [facility] [address] [address] Hazel Greer ARNP [address] [address] documented as of this encounter Procedures Procedure Name Priority Date/Time Associated Diagnosis Comments PTH, INTACT (HC) Routine 11/03/2024 12:5 6 PM EDT CBC AND DIFFERENTIAL Routine 11/03/2024 12:56 PM EDT documented in this encounter Results * PTH, Intact (11/03/2024 12:56 PM EDT) Parathyroid Hormone, Intact 56.0 8.7 - 77.1 pg/mL See order comments 11/03/2024 12:5 6 PM EDT 11/03/2024 12:56 PM EDT Hazel Greer [facility] LAB HISTORICAL-CONVERSIONS- UNSOLICITED RESULTS Final Result [place] See order comments [place] [address] * (ABNORMAL) CBC and Differential (11/03/2024 12:56 PM EDT) Pathologist [facility] WBC 8.8 4.8 - 10.8 X10*3/uL See [...] 6 PM EDT 11/03/2024 12:56 PM EDT us Hazel FLORES LAB BLOOD ORDERABLES Final Result [place] See order comments [place] [address] documented in this encounter Visit Diagnoses Not on filedocumented in this encounter Care Teams Casting Plug Assembler Relationship Specialty Start Date End Date Beth Enrique MD [address] [place] [address] PCP - General 03/26/20 documented as of this encounter
--- OUTSIDE RECORDS SUMMARY | 2024-11-08 08:27 | XMS_ITS | Clinical Summary ---
Author Organization [address] [place] [address] Address [address] [place] [address] Phone Care Team Providers Care Home Security Professional Name Role Phone Cami Enrique MD Primary Care Provider +1- [phone] Allergies No known active allergies Medications gabapentin [...] associated wi th type 2 diabetes mellitus ([facility] V24, [facility] V28) 04/30/2022 Heart failure with recovered ejection fraction (HFrecEF) ([facility] V24, [facility] V28) 11/13/2021 Nonrheumatic mitral valve regurgitation 11/14/19 Sick sinus syndrome ([facility] V24, [facility] V28) 0 11/13/2021 Essential hypertension 10/15/2020 Overview (02/25/2024): Hypertensive disorder Atherosclerotic heart disease 10/11/2020 Dyslipidemia 10/11/2020 Pacemaker 10/11/2020 Type 2 diabetes mellitus, wi thout long-term current use of insulin ([facility] V24, [facility] V28) 10/11/2020 Hypertensive heart disease without congestive he art failure 07/25/2020 Serum creatinine raised 07/25/2020 Stage 2 chronic kidney disease 07/25/2020 Encounters Date Type Department Care Team Description 09/24/2024 12:20 AM EDT Ancillary Procedure [facility] [address] [place] [address] 09/01/2024 Telephone [facility] [address] [place] [address] Eun Wilks NP 08/23/2024 Telephone [facility] [address] [place] [address] Edy Herrera MD 08/22/2024 10:30 AM EDT Ancillary Procedure [facility] [address] [place] [address] Nonrheumatic mitral valve regurgitation 08/16/2024 Telephone [facility] [address] [place] [address] Edy Herrera MD from Last 3 Months [...] Description 06/07/2025 10:00 AM EDT Ancillary Procedure [facility] [address] [facility] [address] [place] [address] Health Maintenance Due Date Last [...] this topic Medical Devices Implanted Type Area Fusion Operator Device Identifier Shelf Expiration Date Model / Serial / Lot Medt-Card Claria Mri Quad Crtd [id number] Implanted:05/15 (Quantity not on file) Cardiac SUPERVISOR WOOD CREW-D ICD [employer] - CARDIAC RHYTH-CRDM CLARIA MRI QUAD CRTD [id number] / [id number] / Procedures Procedure Name Priority Date/Time Associated Diagnosis Comments CARDIAC DEVICE CHECK- REMOTE- MURJ Routine 09/24/2024 12:17 AM EDT TRANSTHORACIC ECHOCARDIOGRAM (TTE) COMPLETE W/ CONTRAST Routine 08/22/2024 11:15 AM EDT Nonrheumatic mitral valve regurgitation from Last 3 Months Results * Cardiac device check - Remote- MURJ (09/24/2024 12:17 AM EDT) Date Time Interrogation Session [id number] CV DEVICE CHECK Type Interrogation Session Remote CV DEVICE CHECK Implantable Pulse Generator Fusion Operator MDT CV DEVICE CHECK Implantable Pulse Generator Type SUPERVISOR WOOD CREW-D CV DEVICE CHECK Implantable Pulse Generator Model Claria MRI Quad CRTD [id number] CV DEVICE CHECK Implantable Pulse Generator Serial Number [id number] CV DEVICE CHECK Implantable Pulse Generator Implant Date [id number] CV DEVICE CHECK Battery Remaining Longevity 93.0 CV DEVICE CHECK Battery Voltage 3.010 CV D EVICE CHECK Battery REVIEW TRAINER Trigger 2.727 CV DEVICE CHECK Battery Status Middle of Service CV DEVICE CHECK Capacitor Charge Time 3.733 CV DEVICE CHECK Claus Statistic RA Percent Paced 3.34 CV DEVICE CHECK Atrial Tachy Statistic AT/AF [place] Percent 0.00 CV DEVICE CHECK Lead Channel [...] CV DEVICE CHECK Ventricular chambers paced during SUPERVISOR WOOD CREW pacing. BiV CV DEVICE CHECK Claus Setting Lower Rate Limit 50 CV DEVICE CHECK Claus Setting AT Mode Switch Rate 171 CV DEVICE CHECK Claus Setting Maximum Tracking Rate 130 CV DEVICE CHECK Claus Setting Maximum Sensor Rate 120 CV DEVICE CHECK Claus Setting PAV Delay 170 CV DEVICE CHECK Claus Setting MARCY Delay 130 CV DEVICE CHECK SUPERVISOR WOOD CREW LV-RV Delay 20 CV D EVICE CHECK [...] 65 mL CV PACS Left Atrium Minor [place] 6.2 cm CV PACS Left Atrium Major [place] 6.0 cm CV PACS LA Area Sys [...] Proximal 1.8 cm CV PACS MV Deceleration Hughes 2.6 m/s2 CV PACS E Wave Deceleration [...] was given to enhance imaging. us Eun Wilks WAFER SUBSTRATE TESTER CV ECHO PROCEDURES Final Res ult from Last 3 Months Insurance [facility] MEDICARE [employer]VANTAGE Care Teams Home Security Professional Relationship Specialty Start Date End Date Cami Enrique MD [address] [facility] [place] [address] PCP - General 09/27/14
--- OUTSIDE RECORDS SUMMARY | 2024-11-08 08:27 | XMS_ITS | Encounter Summary ---
Author Organization [facility] Address [address] [place] [address] Phone Care Team Providers Care Van Driver Helper Name Role Phone Beth Enrique MD Primary Care Provider +1- [phone] Reason for Visit * Reason Onset Date Comments RX refill 10/09/2021 Encounter Details Date Type Department Care Team (Late st Contact Info) Description 10/09/2021 Telephone [facility] [address] [place] [address] Aniya Mcallister Social History Tobacco [...] Visit [facility] [address] [address] Hazel Greer ARNP [address] [address] documented as of this encounter Visit Diagnoses Diagnosis 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
== END 2024-11-08 10:19 | disposition home or self-care (01) ==
LOC: HO.HMCC 08:19
PROVIDERS: PCP Internal Medicine; Visit Provider Internal Medicine
DX: Z00.01 Encounter for general adult medical examination with abnormal findings (principal); E11.3293 Type 2 diabetes mellitus with mild nonproliferative diabetic retinopathy without macular edema, bilateral; N18.32 Chronic kidney disease, stage 3b; Z79.4 Long term (current) use of insulin; E78.2 Mixed hyperlipidemia; I25.10 Atherosclerotic heart disease of native coronary artery without angina pectoris; Z86.79 Personal history of other diseases of the circulatory system

== ENCOUNTER → 2024-11-08 08:18 | Outpatient (BNVA) | payer MEDICARE, SELFPAY | PROVIDERS: PCP Internal Medicine; Visit Provider Internal Medicine | DX: Z00.01 Encounter for general adult medical examination with abnormal findings (principal); E11.3293 Type 2 diabetes mellitus with mild nonproliferative diabetic retinopathy without macular edema, bilateral; E11.22 Type 2 diabetes mellitus with diabetic chronic kidney disease; N18.32 Chronic kidney disease, stage 3b; E78.2 Mixed hyperlipidemia; I25.10 Atherosclerotic heart disease of native coronary artery without angina pectoris; Z86.79 Personal history of other diseases of the circulatory system; Z79.4 Long term (current) use of insulin; Z79.899 Other long term (current) drug therapy | CPT/HCPCS: 99397 ==

== ENCOUNTER → 2024-11-11 10:15 | Outpatient (BNVA) | payer MEDICARE, SELFPAY | PROVIDERS: PCP Internal Medicine; Visit Provider Physician Assistant Medical | DX: E11.3293 Type 2 diabetes mellitus with mild nonproliferative diabetic retinopathy without macular edema, bilateral (principal); N18.32 Chronic kidney disease, stage 3b; Z79.4 Long term (current) use of insulin | CPT/HCPCS: 82947; 99212 ==

== ENCOUNTER 2024-11-11 10:28 | Outpatient (AMB) | payer MEDICARE, SELFPAY ==
--- NOTE | 2024-11-11 10:30 | A.OFFVIS_ITS ---
Vital Signs 11/11/24 10:35 Height 5 ft 6.5 in Weight 182 lb 15.739 oz BMI 29.1 BP 114/60 Blood Pressure Location Rt brachial Position Sitting Pulse 64 Pulse Source Pulse Oximeter Pulse Oximetry (%) 95 Oxygen Delivery Method Room Air Intake Visit Reasons: T2DM Intake Note: Patient present today for T2DM Patient receives Tim 3 Plus sensor through: [facility] Last Diabetic Eye exam: August 17, 2024 Last Podiatry Visit: Does not see a [facility] however is seen at home by a nurse from [place] on Thursday11/07/2024. Random Glucose: 210 mg/dl HgA1C: 9.6% 11/03/2024 Tire And Lube Technician Required: No Accompanied by: Self / Same As Patient Allergies No Known Allergies Allergy (Verified 11/11/24 10:37) Medication List - Last Reconciled 11/11/24 by BENJI Barnard atorvastatin 20 mg PO Q2D 3 months blood sugar diagnostic (AirPRTouch Verio test strips) USE DIRECTED TO CHECK BLOOD GLUCOSE FOUR TIMES DAILY. blood-glucose sensor (FreeStyle Tim 3 Plus Sensor device) Apply 1 new sensor every 15 days as directed to monitor blood glucose continuously. blood-glucose,chief scientist,cont (FreeStyle Tim 3 [place]) Use daily to monitor blood glucose levels continuously. carvedilol 12.5 mg PO BID cholecalciferol (vitamin D3) (Vitamin D3) 25 mcg PO Q2D cyanocobalamin (vitamin B-12) 1,000 mcg IM Q4W ezetimibe 10 mg PO DAILY furosemide 20 mg PO Q2D gabapentin 300 mg PO DAILY insulin glargine U-300 conc (Toujeo Max U-300 SoloStar) 82 units (0.2733 mL) subcut BEDTIME insulin lispro subcut metformin ER 500 mg PO DAILY Ozempic (semaglutide) 2 mg (0.75 mL) subcut QWEEK 84 days NS pen needle, diabetic As directed spironolactone 25 mg PO DAILY HPI Comments Details: This is an 83-year-old female with a past medical history of type 2 diabetes, chronic kidney disease, CAD, sick sinus syndrome s/p placement of cardiac pacemaker and left breast cancer presenting for diabetes managemen. She was diagnosed with diabetes in 1991. There is a family history of diabetes: son, daughter (), many of her family members on her mother's side of the family have type 2 diabetes. There is no known family history of type 1 diabetes. Hemoglobin a1c 9.6%. Reviewed CGM data the last 14 days Average glucose 189 GMI 7.8% Very high 9% High 47% Target range 44% 0% hypoglycemia She experiences hyperglycemia in the afternoon and evening. This improved since increasing her sliding scale. Current medication regimen: Ozempic 2 mg weekly, Metformin extended release 500 mg daily, toujeo 82 units every evening, humalog per sliding scale: Humalog sliding scale: Blood sugar under 150 take 0 units Blood sugar 150-199 mg/dL take 8 units Blood sugar 200-249 mg/dL take 10 units Blood sugar 250-299 mg/dL take 12 units Blood sugar 300-349 mg/dL take 14 units Blood sugar 350-399 mg/dL take 16 units Blood sugar >/=400 mg /dL take 18 units Past medication: Glipizide and Jardiance. She did not tolerate side effects of the medications. She says Jardiance caused stomach upset. Insulin glargine discontinued to switched to Toujeo, but she did not start it yet. Compliance issues: none Hypoglycemia symptoms: No interval episodes. In the past she had shakiness and sweating with hypoglycemia. She has glucose tablets at home. Hyperglycemia symptoms: none Microvascular complications: neuropathy, nephropathy (CKD followed by [facility]), retinopathy (Dr. Sewell) Macrovascular complications: CAD (Dr. Leon) Hypertension: treated with carvedilol 12.5 mg twice daily, spironolactone 25 mg daily Hyperlipidemia: treated with Zetia 10 mg, atorvastatin 20 mg ROS: Constitutional: No unexplained weight loss, fever, chills or night sweats. Eyes: No vision changes, blurry vision, double vision, eye pain, eye redness, eye discharge. Respiratory: No shortness of breath Cardiovascular: No chest pain Gastrointestinal: No anorexia, nausea, vomiting or diarrhea. No abdominal pain Neurologic: No headache, dizziness, syncope, +neuropathy in her feet Skin: No open wounds Endocrine: No cold or heat intolerance. See HPI Physical exam: Constitutional: Alert, in no distress. Head: Normocephalic. Eyes: Pupils are equal, round and reactive to light. Extraocular muscles intact. Neck: Supple, Full range of motion. No lymphadenopathy. No palpable thyroid masses. Respiratory: Clear to auscultation. Cardiovascular: S1 S2 regular. No murmurs. No carotid bruits. 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 CGM demonstrates she has had significant improvement in glycemic control since adjusting her medications with GMI of 7.8% today. She is still having some postprandial hyperglycemia and needs her sliding scale adjusted. Discussed pathophysiology of Type II Diabetes Mellitus with the patient in detail.? I explained the long-term risks and complications associated with uncontrolled diabetes including nephropathy, neuropathy, peripheral vascular disease, retinopathy, increased risk of heart disease and stroke.? Discussed lifestyle modification with the patient. Declined referral to peer educator and dietitian. She has one touch ultra glucometer, lancets and test strips, and she did not need refills today. Toujeo 82 units nightly. Continue Ozempic 2 mg weekly. Continue Metformin 500 mg once daily Continue Humalog three times daily, and administer this 15 minutes before meals. Adjust Humalog sliding scale: Blood sugar under 120 take 0 units Blood sugar 121-149 Take 10 units Blood sugar 150-199 mg/dL take 12 units Blood sugar 200-249 mg/dL take 14 units Blood sugar 250-299 mg/dL take 16 units Blood sugar 300-349 mg/dL take 18units Blood sugar 350-399 mg/dL take 20 units Blood sugar >/=400 mg /dL take 22 units If her postprandial blood sugars are still elevated she can add another 2 units to her sliding scale. Follow up in 6 weeks for diabetic management. (2) CKD (chronic kidney disease): Code(s): N18.9 - Chronic kidney disease, unspecified Category: Medical Qualifiers: Chronic kidney disease stage: stage 3 (moderate) Chronic kidney disease stage 3 subtype: stage 3b (GFR 30-44) Qualified Code(s): N18.32 - Chronic kidney disease, stage 3b Plan: She did not tolerate dot Jardiance. Consider trial of Invokana. She does not want to add more medication at this time. Avoid nephrotoxic medications. Plan Follow up in follow up in 6 weeks Follow up in 4-6 weeks for type 2 diabetes. Orders: Orders AMB Glucose Monitoring Today E11.9 - Type 2 diabetes mellitus without complications Medications: Changed From Ozempic (semaglutide) 2 mg (0.75 mL) subcut QWEEK 30 days 3 mL 3RF NS E11.3293 - Type 2 diabetes mellitus with mild nonproliferative diabetic retinopathy without macular edema, bilateral, Z79.4 - FPC (current) use of insulin To Ozempic (semaglutide) 2 mg (0.75 mL) subcut QWEEK 9 mL 1RF 84 days NS E11.3293 - Type 2 diabetes mellitus with mild nonproliferative diabetic retinopathy without macular edema, bilateral, Z79.4 - team lead (current) use of insulin Patient Instructions: Current medication regimen: Ozempic 2 mg weekly, Metformin extended release 500 mg daily, toujeo 82 units every evening, humalog per sliding scale: Toujeo 82 units nightly. Continue Ozempic 2 mg weekly. Continue Metformin 500 mg once daily Continue Humalog three times daily, and administer this 15 minutes before meals. 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
[2024-11-11 10:35] VITALS: BP 114/60; PULSE 64; O2SAT 95; BMI 29.1
[2024-11-11 10:45] LABS: Glucose, Whole Blood 210 mg/dL (60-115)
== END 2024-11-11 11:04 | disposition home or self-care (01) ==
LOC: HO.ENCR 10:29
PROVIDERS: PCP Internal Medicine; Visit Provider Physician Assistant Medical
DX: E11.3293 Type 2 diabetes mellitus with mild nonproliferative diabetic retinopathy without macular edema, bilateral (principal); Z79.4 Long term (current) use of insulin; N18.32 Chronic kidney disease, stage 3b

== ENCOUNTER 2024-12-16 12:46 | Outpatient (REF) | payer MEDICARE, SELFPAY ==
--- OUTSIDE RECORDS SUMMARY | 2024-12-16 13:17 | XMS_ITS | Clinical Summary ---
Author Organization [address] [place] [address] Address [address] [place] [address] Phone Care Team Providers Care Healthcare Facility Administrator Name Role Phone Cami Enrique MD Primary Care Provider [phone] Allergies No known active allergies Medications gabapentin [...] (one) time each day with breakfast. Active spironolactone (ALDACTONE) 25 mg tablet Take 1 tablet (25 mg total) by mouth 1 (one) time each day. 90 tablet 2 5 Active carvediloL (COREG) 12.5 mg tablet TAKE 1 TABLET BY MOUTH TWICE DAILY 180 tablet 2 5 Active furosemide (LASIX) 20 mg tablet TAKE 1 TABLET BY MOUTH EVERY OTHER DAY 50 tablet 3 5 Active furosemide (LASIX) 20 mg tablet TAKE 1 TABLET BY MOUTH EVERY OTHER DAY 45 tablet 2 5 12/07/19 25 Discontinued Active Problems Problem Noted Date Diagnosed Date Diastolic dysfunction 06/07/2024 Hyperlipidemia associated wi th type 2 diabetes mellitus ([facility] [place], [facility] V28) 04/30/2022 Heart failure with recovered ejection fraction (HFrecEF) ([facility] [place]24, [facility] V28) 11/13/2021 Nonrheumatic mitral valve regurgitation 11/14/19 22 Sick sinus syndrome ([facility] [place]24, [facility] V28) 0 11/13/2021 Essential hypertension 10/15/2020 Overview (02/25/2024): Hypertensive disorder Atherosclerotic heart disease 10/11/2020 Dyslipidemia 10/11/2020 Pacemaker 10/11/2020 Type 2 diabetes mellitus, wi thout long-term current use of insulin ([facility] V24, [facility] V28) 10/11/2020 Hypertensive heart disease without congestive he art failure 07/25/2020 Serum creatinine raised 07/25/2020 Stage 2 chronic kidney disease 07/25/2020 Encounters Date Type Department Care Team Description 09/24/2024 12:20 AM EDT Ancillary Procedure [facility] - [facility] [address] [facility] [address] [place] [id number] from Last 3 Months Surgical History Surgery [...] Description 06/07/2025 10:00 AM EDT Ancillary Procedure [facility] - [address] [facility] [address] [place] [address] Health Maintenance Due Date Last [...] this topic Medical Devices Implanted Type Area Manager Consumer Device Identifier Shelf Expiration Date Model / Serial / Lot Medt-Card Rosaia Mri Quad Crtd [id number] Implanted:05/15 (Quantity not on file) Cardiac PRECISION JIG GRINDER-D ICD [employer] - CARDIAC RHYTH-CRDM CLARIA MRI QUAD CRTD [id number] / [id number] / Procedures Procedure Name Priority Date/Time Associated Diagnosis Comments CARDIAC DEVICE CHECK- REMOTE- MURJ Routine 09/24/2024 12:17 AM EDT from Last 3 Months Results * Cardiac device check - Remote- MURJ (09/24/2024 12:17 AM EDT) Date Time Interrogation Session [id number] CV DEVICE CHECK Type Interrogation Session Remote CV DEVICE CHECK Implantable Pulse Generator Manager Consumer MDT CV DEVICE CHECK Implantable Pulse Generator Type PRECISION JIG GRINDER-D CV DEVICE CHECK Implantable Pulse Generator Model Claria MRI Quad CRTD [id number] CV DEVICE CHECK Implantable Pulse Generator Serial Number [id number] CV DEVICE CHECK Implantable Pulse Generator Implant Date [id number] CV DEVICE CHECK Battery Remaining Longevity 93.0 CV DEVICE CHECK Battery Voltage 3.010 CV D EVICE CHECK Battery FUNERAL PRE ARRANGEMENT SPECIALIST Trigger 2.727 CV DEVICE CHECK Battery Status Middle of Service CV DEVICE CHECK Capacitor Charge Time 3.733 CV DEVICE CHECK Claus Statistic RA Percent Paced 3.34 CV DEVICE CHECK Atrial Tachy Statistic AT/AF [place] Percent 0.00 CV DEVICE CHECK Lead Channel [...] CV DEVICE CHECK Ventricular chambers paced during PRECISION JIG GRINDER pacing. BiV CV DEVICE CHECK Claus Setting Lower Rate Limit 50 CV DEVICE CHECK Claus Setting AT Mode Switch Rate 171 CV DEVICE CHECK Claus Setting Maximum Tracking Rate 130 CV DEVICE CHECK Claus Setting Maximum Sensor Rate 120 CV DEVICE CHECK Claus Setting PAV Delay 170 CV DEVICE CHECK Claus Setting MARCY Delay 130 CV DEVICE CHECK PRECISION JIG GRINDER LV-RV Delay 20 CV D EVICE CHECK [...] CV IMPLANTABLE CARDIAC DEVICE PROCEDURES Final Result from Last 3 Months Insurance [facility] [employer] Care Teams Healthcare Facility Administrator Relationship Specialty Start Date End Date Cami Enrique MD [address] [place] [address] PCP - General 09/27/14
--- OUTSIDE RECORDS SUMMARY | 2024-12-16 13:17 | XMS_ITS | Clinical Summary ---
Author Organization [facility] Address [address] [place] [id number] Phone Care Team Providers Care Corner Bead Operator Name Role Phone Cami Enrique MD Primary Care Provider Allergies No known active allergies Medications aspirin 81 MG EC tablet Take 1 tablet by mouth. Active atorvastatin (LIPITOR) 20 MG tablet Take 20 mg by mouth every other day. 03/25/19 23 Active carvedilol (COREG) 12.5 MG tablet Take 12.5 mg by mouth 2 (two) times a day. 05/25/19 23 Active cholecalciferol, vitamin D3, 25 mcg (1,000 unit) capsule Take 1 capsule by mouth. Active cyanocobalamin (VITAMIN B-12) 1,000 mcg/mL injection INJECT 1 ML INTRAMUSCULARLY ONCE EVERY 4 WEEKS FOR 90 DAYS 05/27/19 23 Active ezetimibe (ZETIA) 10 mg tablet TAKE 1 TABLET (10 MG) BY MOUTH DAILY 03/25/19 23 Active furosemide (LASIX) 20 MG tablet 20 mg every other day. Active spironolactone (ALDACTONE) 25 MG tablet Take 25 mg by mouth daily. 03/25/19 23 Active omega 2-cja-nng-fish oil 1,000 mg (120 mg-180 mg) Cap Take 2 capsules by mouth daily. Active lancets (LANCETS,ULTRA THIN) 26 gauge Misc as directed 02/04/20 11 Active ONETOUCH VERIO Strp stripsIndication s:Type 2 diabetes mellitus with peripheral neuropathy 1 each by Miscellaneous route 3 (three) times a day. 300 strip 3 09/16/19 23 Active FREESTYLE RAFAEL 2 SENSOR kitIndications:D M type 2 with diabetic peripheral neuropathy TO MONITOR BLOOD GLUCOSE, DX E11.42 ON INSULIN, TO CHANGE THE SENSOR EVERY 14 DAYS 6 kit 2 12/08/19 24 Active gabapentin (NEURONTIN) 300 MG capsuleIndicatio ns:DM type 2 with diabetic peripheral neuropathy TAKE 1 CAPSULE BY MOUTH NIGHTLY AT BEDTIME. 90 capsule 1 02/18/20 24 Active BD INSULIN SYRINGE ULTRA-FINE 1 mL 31 gauge x 07/29 SyrgIndications: Type 2 diabetes mellitus with peripheral neuropathy USE 1 EACH 4 TIMES A DAY 400 each 3 04/12/19 25 Active OZEMPIC 1 mg/dose (4 mg/3 mL) subcutaneous injection penIndications:T ype 2 diabetes mellitus with peripheral neuropathy INJECT 1 MG UNDER THE SKIN EVERY 7 DAYS 3 mL 5 05/17/19 25 Active LANTUS U-100 INSULIN 100 unit/mL injection vialIndications: Type 2 diabetes mellitus with peripheral neuropathy Inject 82 Units under the skin daily. 80 mL 1 08/18/19 25 Active metFORMIN (GLUCOPHAGE-XR) 500 MG 24 hr tabletIndication s:Type 2 diabetes mellitus with peripheral neuropathy TAKE 1 TABLET BY MOUTH DAILY WITH BREAKFAST 90 tablet 1 10/01/19 25 Active insulin lispro (HUMALOG U-100 INSULIN) 100 unit/mL injection vialIndications: Type 2 diabetes mellitus with retinopathy, with long-term current use of insulin INJECT 22 TO 25 UNITS BEFORE BREAKFAST 30 UNITS BEFORE LUNCH AND 30 UNITS BEFORE SUPPER 90 mL 2 10/18/19 25 Active Active Problems Problem Noted Date Diagnosed Date Type 2 diabetes mellitus wit h diabetic neuropathy, with long-term current use of insulin 09/27/2023 Assessment & Plan (09/27/2023 9:16 PM EDT): Poor control by SMBG and last A1c of 11.7 in 08/2023. Patient has been unable to fill the prescription on the [facility] because of shortage for the last 2 [...] are controlled with gabapentin. Has follow-up with sweep molder soon. Waiting for labs done in 02/2024 at [facility] by PCP. -Patient declined increasing the Ozempic [...] her glucose levels. Up to date with ophtho. Labs orders Assessment & Plan (05/22/2023 10:16 [...] her glucose levels. Up to date with ophtho. 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 Up to date with opho. Labs requested Assessment & Plan (06/03/2022 11:08 [...] She was previously getting them from a [facility] but now her insurance will not work with them and needs to have them at the local pharmacy. Will send the prescriptions to her local pharmacy to be picked up. Will maintain her regimen. Continue to work on eating healthy and being active. To call with any issues with her glucose control. Up to date with opho. Sees podiatry. Labs ordered for today Encounters Date Type Department Care Team Description 10/14/2024 Refill [facility] [address] [place] [address] Lenka Sutherland PA-C Medication Refill 09/29/2024 Refill [facility] [address] [place] [address] Gali Goss MD Medication Refill from Last 3 Months Family History Medical [...] 03/30/2024 10:28 AM EST Plan of Treatment Health Maintenance Due Date Last Done Comments Adult Td,Tdap Booster 1940 DEPRESSION SCREENING 1950 PNEUMOCOCCAL VACCINES (50+ years) (1 of 2 - PCV) 1957 ZOSTER VACCINES (1 of 2) 1988 OSTEOPOROSIS SCREENING INITIAL (ONE-TIME) 10/20/2003 RSV VACCINE (1 - 1-dose 75+ series) 2013 DIABETIC EYE EXAM 05/21/2022 HEMOGLOBIN A1C 09/03/2022 06/03/2022, 04/30/2022 URINE MICROALBUMIN/CREATININE RATIO 04/30/2023 04/30/2022 INFLUENZA VACCINE (#1) 2024 COVID-19 VACCINE ( season) 2024 CREATININE LEVEL 03/30/2025 03/30/2024, , 09/08/2022, Additional [...] Basic metabolic panel (03/30/2024 5:09 PM EST) us Historical Provider LAB BLOOD ORDERABLES Kelsey l Result * (ABNORMAL) Hemoglobin A1c (06/03/2022 11:14 AM EDT) HEMOGLOBIN A1C 9.4(H) 4.3 - 5.8 % [facility] Blood 06/03/2022 11:1 4 AM EDT 06/03/2022 11:16 AM EDT Lenka Sutherland PA-C LAB BLOOD ORDERABL ES Final Result [facility] [address] [place] [address] from Last 3 Months or Most Recently Relevant to Health Maintenance Insurance [facility] SNP MEDICARE REPLACEMENT JIAN TATERE [employer] SNP MEDICARE REPLACEMENT JIAN CHITOICARE [employer] SNP MEDICARE REPLACEMENT JIAN TATERE [employer] SNP MEDICARE REPLACEMENT JIAN CHITOICARE [employer] SNP MEDICARE REPLACEMENT JIAN YEAGER [employer] [place] [phone] Care Teams Corner Bead Operator Relationship Specialty Start Date End Date Cami Enrique MD [address] [facility] [place] [address] PCP - General Internal Medicine 05/30/22 Additional Source Comments The information contained in this document represents components of the legal health record. It is not the complete legal health record.[facility]
[2024-12-16 15:07] LABS: Anion Gap 14 (12-20); Blood Urea Nitrogen 18 mg/dL (9-16); Calcium 9.9 mg/dL (8.4-10.2); Carbon Dioxide 24 mmol/L (22-29); Chloride 103 mmol/L (96-108); Estimated Glomerular Filt Rate 40; Potassium 4.8 mmol/L (3.3-5.1); Sodium 136 mmol/L (135-145)
== END 2024-12-16 12:47 | disposition home or self-care (01) ==
LOC: HO.CHCLDS 12:46
PROVIDERS: Visit Provider Internal Medicine Nephrology
DX: I12.9 Hypertensive chronic kidney disease with stage 1 through stage 4 chronic kidney disease, or unspecified chronic kidney disease (principal); N18.32 Chronic kidney disease, stage 3b
CPT/HCPCS: 36415; 80051; 82310; 82565; 84520

== ENCOUNTER 2024-12-30 09:48 | Outpatient (AMB) | payer MEDICARE, SELFPAY ==
--- NOTE | 2024-12-30 09:52 | A.OFFVIS_ITS ---
Vital Signs 12/30/24 09:56 Height 5 ft 6.5 in Weight 183 lb 10.321 oz BMI 29.2 BP 116/64 Blood Pressure Location Rt brachial Position Sitting Pulse 62 Pulse Source Pulse Oximeter Pulse Oximetry (%) 97 Oxygen Delivery Method Room Air Intake Visit Reasons: Type II diabetes Intake Note: Patient present today for T2DM Patient receives Tim 3 Plus sensor through: [facility] Last Diabetic Eye exam: August 17, 2024 Last Podiatry Visit: Does not see a Hand Patcher Random Glucose: 179 mg/dl HgA1C: 9.6% 11/03/2024 Reporting Specialist Required: No Accompanied by: Self / Same As Patient Allergies No Known Allergies Allergy (Verified 12/30/24 09:57) Medication List - Last Reconciled 12/30/24 by BENJI Barnard atorvastatin 20 mg PO Q2D 3 months blood sugar diagnostic (ClearEdge3Duch Verio test strips) USE DIRECTED TO CHECK BLOOD GLUCOSE FOUR TIMES DAILY. blood-glucose sensor (FreeStyle Tim 3 Plus Sensor device) Apply 1 new sensor every 15 days as directed to monitor blood glucose continuously. 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 carvedilol 12.5 mg PO BID cholecalciferol (vitamin D3) (Vitamin D3) 25 mcg PO Q2D cyanocobalamin (vitamin B-12) 1,000 mcg IM Q4W ezetimibe 10 mg PO DAILY furosemide 20 mg PO Q2D gabapentin 300 mg PO DAILY insulin glargine U-300 conc (Toujeo Max U-300 SoloStar) 82 units (0.2733 mL) subcut BEDTIME insulin lispro subcut metformin ER 500 mg PO DAILY pen needle, diabetic As directed spironolactone 25 mg PO DAILY tirzepatide (Mounjaro) 2.5 mg (0.5 mL) subcut QWEEK HPI Comments Details: This is an 84-year-old female with a past medical history of type 2 diabetes, chronic kidney disease, CAD, sick sinus syndrome s/p placement of cardiac pacemaker and left breast cancer presenting for diabetes management. She was diagnosed with diabetes in 1991. There is a family history of diabetes: son, daughter (), many of her family members on her mother's side of the family have type 2 diabetes. There is no known family history of type 1 diabetes. Hemoglobin a1c 9.6% 11/03/24. Reviewed CGM data for the past 2 weeks G HI 8.3% Glucose variability 28.2% Very high 26% High 45% Target range 28% Low 1% 0% very low She has infrequent low sugars in the morning, and she has hyperglycemia postprandially and throughout the day and night. She has not been following a diabetic diet. She has been eating a lot of fall desserts and carbohydrates. She only has diet juice and soda. Current medication regimen: Ozempic 2 mg weekly, Metformin extended release 500 mg daily, toujeo 82 units every evening, humalog per sliding scale: Humalog sliding scale: Blood sugar under 120 take 0 units Blood sugar 121-149 Take 10 units Blood sugar 150-199 mg/dL take 12 units Blood sugar 200-249 mg/dL take 14 units Blood sugar 250-299 mg/dL take 16 units Blood sugar 300-349 mg/dL take 18units Blood sugar 350-399 mg/dL take 20 units Blood sugar >/=400 mg /dL take 22 units Past medication: Glipizide and Jardiance. She did not tolerate side effects of the medications. She says Jardiance caused stomach upset. Compliance issues: none Microvascular complications: neuropathy, nephropathy ([facility] followed by [facility]), retinopathy (Dr. Sewell) Macrovascular complications: CAD (Dr. Leon) Hypertension: treated with carvedilol 12.5 mg twice daily, spironolactone 25 mg daily Hyperlipidemia: treated with Zetia 10 mg, atorvastatin 20 mg Last foot exam: Thursday this week. ROS: Constitutional: No unexplained weight loss, fever, chills or night sweats. Eyes: No vision changes, blurry vision, double vision, eye pain, eye redness, eye discharge. Respiratory: No shortness of breath Cardiovascular: No chest pain Gastrointestinal: No anorexia, nausea, vomiting or diarrhea. No abdominal pain Neurologic: No headache, dizziness, syncope, +neuropathy in her feet Skin: No open wounds Endocrine: No cold or heat intolerance. Physical exam: Constitutional: Alert, in no distress. Head: Normocephalic. Eyes: Pupils are equal, round and reactive to light. Extraocular muscles intact. Neck: Supple, Full range of motion. No lymphadenopathy. No palpable thyroid masses. Respiratory: Clear to auscultation. Cardiovascular: S1 S2 regular. No murmurs. No carotid bruits. 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 Mother Mental health disorder Social History Housing: Apartment Alcohol intake: former Patient Tobacco Use Status: Never used Tobacco e-Cigarette/Vaping Use: Never Used Current occupational status: retired Cognitive needs: No Hearing needs: No Vision needs: Yes Physical Exam Vital Signs: Last Vital Signs Pulse 62 12/30/24 09:56 BP 116/64 12/30/24 09:56 Pulse Ox 97 12/30/24 09:56 Oxygen Delivery Method Room Air 12/30/24 09:56 BMI result Body Mass Index 29.2 Office Procedures Glucose Monitoring Details Details: see HPI 14990 - Glucose monitoring, continuous-physician I&R Procedure code (CPT) selection complete Results Reviewed Results Reviewed: Laboratory Tests 11/03/24 12/16/24 09:46 12:50 Creatinine 1.26 Estimated GFR 40 AST 32 H ALT 27 Triglycerides 172 H Cholesterol 173 LDL Cholesterol, Calc 102 H HDL Cholesterol 37 L Urine Creatinine 153.50 Urine Microalbumin 37.0 Microalb/Creat Ratio 24.0 Assessment & Plan Assessment & Plan (1) 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, with long-term current use of insulin: Code(s): E11.3293 - Type 2 diabetes mellitus with mild nonproliferative diabetic retinopathy without macular edema, bilateral; Z79.4 - grain grader (current) use of insulin Category: Medical Qualifiers: Diabetes mellitus macular edema: macular edema presence unspecified Qualified Code(s): E11.3293 - Type 2 diabetes mellitus with mild nonproliferative diabetic retinopathy without macular edema, bilateral; Z79.4 - [facility] (current) use of insulin Plan: In summary this is an 84-year-old female with a past medical history of uncontrolled type 2 diabetes with micro and macrovascular complications. Discussed pathophysiology of Type II Diabetes Mellitus with the patient in detail.? 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 Discussed lifestyle modification with the patient. Declined referral to home companion and dietitian. She needs to follow the diabetic diet. She is going to decrease carbs and sugars. She has one touch ultra glucometer, lancets and test strips, and she did not need refills today. Continue Toujeo 82 units nightly. She has 1 month left of Ozempic and then she will switch to Mounjaro 2.5 mg weekly SINCE SHE STILL HAS UNCONTROLLED DIABETES DESPITE USING THE MAXIMUM DOSE OF OZEMPIC AND HAS NOT HAD SIGNIFICANT WEIGHT LOSS. Continue Metformin 500 mg once daily Continue Humalog three times daily, and administer this 15 minutes before meals. Adjust Humalog sliding scale: Blood sugar under 120 take 0 units Blood sugar 121-149 Take 14 units Blood sugar 150-199 mg/dL take 16 units Blood sugar 200-249 mg/dL take 18 units Blood sugar 250-299 mg/dL take 20 units Blood sugar 300-349 mg/dL take 22 units Blood sugar 350-399 mg/dL take 24 units Blood sugar >/=400 mg /dL take 26 units Follow up in 6 weeks for diabetic management. (2) CKD (chronic kidney disease): Code(s): N18.9 - Chronic kidney disease, unspecified Category: Medical Qualifiers: Chronic kidney disease stage: stage 3 (moderate) Chronic kidney disease stage 3 subtype: stage 3b (GFR 30-44) Qualified Code(s): N18.32 - Chronic kidney disease, stage 3b Plan: She did not tolerate dot Jardiance. Consider trial of Invokana. She does not want to add more medication at this time. Avoid nephrotoxic medications. (3) Mixed dyslipidemia: Code(s): E78.2 - Mixed hyperlipidemia Category: Medical Plan: Recommended Mediterranean diet. Continue Zetia and atorvastatin. (4) Essential hypertension: Code(s): I10 - Essential (primary) hypertension Category: Medical Plan: Controlled. Continue carvedilol and spironolactone. Plan Follow up in follow up in 6 weeks Follow up in 4-6 weeks for type 2 diabetes. Orders: Orders AMB Glucose Monitoring Today E11.9 - Type 2 diabetes mellitus without complications Medications: New tirzepatide (Mounjaro) for 4 weeks 2.5 mg (0.5 mL) subcut QWEEK 2 mL 0RF Discontinued Ozempic (semaglutide) Discontinued Reason: Doctor's Order 2 mg (0.75 mL) subcut QWEEK 84 days 9 mL 1RF NS E11.3293 - Type 2 diabetes mellitus with mild nonproliferative diabetic retinopathy without macular edema, bilateral, Z79.4 - [facility] (current) use of insulin Patient Instructions: Finish Ozempic 2 mg weekly for the next month. One week after the last dose start Mounjaro 2.5 mg weekly. Metformin extended release 500 mg daily, toujeo 82 units every evening, humalog per sliding scale: Humalog sliding scale: Continue Humalog three times daily, and administer this 15 minutes before meals. 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
[2024-12-30 09:56] VITALS: BP 116/64; PULSE 62; O2SAT 97; BMI 29.2
[2024-12-30 10:11] LABS: Glucose, Whole Blood 179 mg/dL (60-115)
--- OUTSIDE RECORDS SUMMARY | 2024-12-30 11:21 | XMS_ITS | Clinical Summary ---
Author Organization [facility] Address [address] [address] Phone Care Team Providers Care Hand Ornament Maker Name Role Phone Beth Enrique MD Primary Care Provider +1- [phone] Allergies No known active allergies Medications aspirin [...] ezetimibe (ZETIA) 10 MG tablet 1 Active Lantus 100 UNIT/ML [...] EACH DAY. 90 tablet 3 5 Active furosemide (LASIX) 20 MG tablet Take 20 mg by mouth every other day Active Active Problems Problem Noted Date Diagnosed Date Anemia in chronic kidney disease 11/15/2024 Vitamin D deficiency due to chronic kidney disea se 04/10/2024 Stage 3b chronic kidney disease 03/25/2023 Pacemaker status 03/25/2023 Cardiac defibrillator status 03/25/2023 Overview (03/25/2023): Food Dehydrator Operator is Dr. Bryson at [facility] Diabetes mellitus 07/25/2020 Hypertensive heart disease without congestive he art failure 07/25/2020 Hypertension 07/25/2020 Resolved Problems Problem Noted Date Diagnosed Date Resolved Date Chronic kidney disease stage 2 07/25/2020 03/25/2023 Hypertensive disorder 07/25/20202023 Serum creatinine above reference range 07/25/2020 03/25/2023 Chronic kidney disease, stage 2 (mild) 07/25/2020 03/25/2023 Encounters Date Type Department Care Team Description 12/16/2024 Orders Only [facility] [place] [id number] [phone] Hazel Greer ARNP 11/15/2024 11:15 AM EDT Office Visit [facility] [address] [phone] Hazel Greer ARNP Stage 3b chronic kidney disease (HCC) (Primary Dx); Hypertension 11/03/2024 Orders Only [facility] [address] [phone] Hazel Greer ARNP from Last 3 Months [...] Sign Reading Time Taken Comments Blood Pressure 122/60 11/15/2024 11:48 AM EDT Pulse 59 11/15/2024 11:35 AM EDT Temperature - - Respiratory Rate - - Oxygen Saturation 96% 11/15/2024 11:35 AM EDT Inhaled Oxygen Concentration - - Weight 84 kg (185 lb 3.2 oz) 11/15/2024 11:35 AM EDT Height 170.2 cm (5' 7 ) 07/25/2021 2:38 PM EDT Body Mass Index 29.01 07/25/2021 2:38 PM EDT Plan of Treatment Upcoming Encounters Date Type Department Care Team (Late st Contact Info) Description 05/15/2025 10:15 AM EST Office Visit [facility] [address] [address] Hazle Greer ARNP [address] [phone] Health Maintenance Due Date Last Done Comments [...] Procedure Name Priority Date/Time Associated Diagnosis Comments CALCIUM Routine 12/16/2024 2:14 PM EDT CREATININE, BLOOD Routine 12/16/2024 2:1 4 PM EDT BUN Routine 12/16/2024 2:14 PM EDT ELECTROLYTE PANEL Routine 12/16/2024 2:1 4 PM EDT PROTEIN / CREATININE RATIO, URINE Routine 11/03/2024 [...] Recently Relevant to Health Maintenance Results * Creatinine (12/16/2024 2:14 PM EDT) Creatinine Serum 1.26 0.5 - 1.4 mg/dL See order comments eGFR (Calc) 40 See orde r comments Comment: Chronic Kidney Disease: Estimated GFR < 60 mL/min/1.73m2 Severe Kidney Disease: Estimated GFR < 15 mL/min/1.73m2 12/16/2024 2:14 PM EDT 12/16/2024 2:14 PM EDT Hazel [facility] LAB BLOOD ORDERABLES Final Result [place] See order comments [place] [address] * (ABNORMAL) BUN (12/16/2024 2:14 PM EDT) BUN 18(H) 9 - 16 mg/dL See order comments 12/16/2024 2:14 PM EDT 12/16/2024 2:14 PM EDT [facility] LAB BLOOD ORDERABLES Final Result Performing Organization Address [facility] Phone Number [place] See order comments [place] [address] * Calcium (12/16/2024 2:14 PM EDT) Calcium 9.9 8.4 - 10.2 mg/dL See order comments 12/16/2024 2:14 PM EDT 12/16/2024 2:14 PM EDT [facility] LAB BLOOD ORDERABLES Final Result Performing Organization Address [facility] Phone Number [place] See order comments [place] [address] * Electrolyte panel (12/16/2024 2:14 PM EDT) Sodium 136 135 - 145 mmol/L See order comments Potassium 4.8 3.3 - 5.1 mmol/L See order comments Chloride 103 96 - 108 mmol/L See order comments Bicarbonate (CO2) 24 22 - 29 mmol/L See order comments Anion Gap 14 12 - 20 See order comments 12/16/2024 2:14 PM EDT 12/16/2024 2:14 PM EDT [facility] LAB BLOOD ORDERABLES Final Result Performing Organization Address [facility] Phone Number [place] See order comments [place] [address] * (ABNORMAL) Urine Protein / creatinine ratio [...] 1:15 PM EDT 11/03/2024 1:15 PM EDT [facility] LAB URINE ORDERABLES Final Result [place] See order comments [place] [address] * PTH, Intact (11/03/2024 12:56 PM EDT) Parathyroid Hormone, Intact 56.0 8.7 - 77.1 pg/mL See order comments 11/03/2024 12:5 6 PM EDT 11/03/2024 12:56 PM EDT [facility] LAB HISTORICAL-CONVERSIONS- UNSOLICITED RESULTS Final Result Performing Organization Address [facility] Co de Phone Number [place] See order comments [place] [address] * (ABNORMAL) CBC and Differential (11/03/2024 12:56 [...] 6 PM EDT 11/03/2024 12:56 PM EDT [facility] LAB BLOOD ORDERABLES Final Result Performing Organization Address [facility] Co de Phone Number [place] See order comments [place] [address] * Magnesium (11/03/2024 12:56 PM EDT) Pathologist [facility] Magnesium 1.8 1.6 - 2.6 mg/dL See order comments Blood specimen (specimen) Venous blood / Unknown 11/03/2024 12:56 PM EDT 11/03/2024 12:56 PM EDT [facility] Final Result Performing Organization Address [facility] de Phone Number [place] See order comments [place] [address] * (ABNORMAL) Hemoglobin A1c (04/30/2022 11:02 AM [...] Most Recently Relevant to Health Maintenance Insurance [employer] [facility]AT[facility] ([id number]) [employer] [facility] ([id number]) Care Teams Hand Ornament Maker Relationship Specialty Start Date End Date Beth Enrique MD [address] [place] [address] PCP - General 03/26/20
--- OUTSIDE RECORDS SUMMARY | 2024-12-30 11:21 | XMS_ITS | Encounter Summary ---
Author Organization [facility] Address [address] [facility] [address] [place] [address] Phone Care Team Providers Care Seater Assembler Name Role Phone Beth Enrique MD Primary Care Provider +1- [phone] Encounter Details Date Type Department Care Team (Late st Contact Info) Description 09/23/2023 Office Communication [facility] [address] [facility] [address] [place] [address] Hazel Greer ARNP [address] [facility] [address] [place] [address] Social History Tobacco Use Types [...] Office Visit [facility] [address] [phone] Hazel Greer ARNP [address] [phone] documented as of this encounter Visit Diagnoses Not on filedocumented in this encounter Care Teams Seater Assembler Relationship Specialty Start Date End Date Beth Enrique MD [address] [place] [address] PCP - General 03/26/20 documented as of this encounter
--- OUTSIDE RECORDS SUMMARY | 2024-12-30 11:21 | XMS_ITS | Encounter Summary ---
Author Organization [facility] Address [address] [place] [address] Phone Care Team Providers Care Home Day Care Provider Name Role Phone Beth Enrique MD Primary Care Provider +1- [phone] Reason for Visit * Reason Onset Date Comments RX refill 10/09/2021 Encounter Details Date Type Department Care Team (Late st Contact Info) Description 10/09/2021 Telephone [facility] [address] [place] [address] Aniya Mcallister Social History Tobacco [...] [facility] [address] [phone] Hazel Greer ARNP [address] [phone] documented as of this encounter Visit Diagnoses Diagnosis Type 2 diabetes mellitus with other diabetic kidney complication (HCC)- Primary documented in this encounter Care Teams Home Day Care Provider Relationship Specialty Start Date End Date Beth Enrique MD [address] [place] [address] PCP - General 03/26/20 documented as of this encounter
--- OUTSIDE RECORDS SUMMARY | 2024-12-30 11:21 | XMS_ITS | Encounter Summary ---
Author Organization [facility] Address [address] [address] Phone Care Team Providers Care Inspector Bullet Slugs Name Role Phone Beth Enrique MD Primary Care Provider +1- [phone] Encounter Details Date Type Department Care Team (Late Contact Info) Description 04/10/2024 Office Communication [facility] [address] [phone] Hazel Greer ARNP [address] [address] Social History Tobacco Use Types [...] Department Care Team (Late Contact Info) Description 05/15/2025 10:15 AM EST Office Visit [facility] [address] [phone] Hazel Greer ARNP [address] [address] documented as of this encounter Visit Diagnoses Not on filedocumented in this encounter Care Teams Inspector Bullet Slugs Relationship Specialty Start Date End Date Beth Enrique MD [address] [place] [address] PCP - General 03/26/20 documented as of this encounter
--- OUTSIDE RECORDS SUMMARY | 2024-12-30 11:22 | XMS_ITS | Clinical Summary ---
Author Organization [address] [place] [address] Address [address] [place] [address] Phone Care Team Providers Care Transportation Refrigeration Technician Name Role Phone Cami Enrique MD Primary Care Provider +1- [phone] Allergies No known active allergies Medications gabapentin [...] associated wi th type 2 diabetes mellitus ([facility] V24, [facility] V28) 04/30/2022 Heart failure with recovered ejection fraction (HFrecEF) ([facility] V24, [facility] V28) 11/13/2021 Nonrheumatic mitral valve regurgitation 11/14/19 22 Sick sinus syndrome ([facility] V24, [facility] V28) 0 11/13/2021 Essential hypertension 10/15/2020 Overview (02/25/2024): Hypertensive disorder Atherosclerotic heart disease 10/11/2020 Dyslipidemia 10/11/2020 Pacemaker 10/11/2020 Type 2 diabetes mellitus, wi thout long-term current use of insulin ([facility] V24, [facility] V28) 10/11/2020 Hypertensive heart disease without congestive he art failure 07/25/2020 Serum creatinine raised 07/25/2020 Stage 2 chronic kidney disease 07/25/2020 Surgical History Surgery Date Site/Laterality Comments CATARACT [...] Description 06/07/2025 10:00 AM EDT Ancillary Procedure [facility] [address] [facility] [address] [place] [address] Health Maintenance Due Date Last [...] this topic Medical Devices Implanted Type Area Textile Engineer Device Identifier Shelf Expiration Date Model / Serial / Lot Medt-Card Claria Mri Quad Crtd [id number] Implanted:05/15 (Quantity not on file) Cardiac RIVET STICKER-D ICD [employer] - CARDIAC RHYTH-CRDM CLARIA MRI QUAD CRTD [id number] / [id number] / Insurance [facility] [employer] Care Teams Transportation Refrigeration Technician Relationship Specialty Start Date End Date Cami Enrique MD [address] [facility] [place] [place] [address] PCP - General 09/27/14
== END 2024-12-30 10:44 | disposition home or self-care (01) ==
LOC: HO.ENCR 09:49
PROVIDERS: PCP Internal Medicine; Visit Provider Physician Assistant Medical
DX: E11.3293 Type 2 diabetes mellitus with mild nonproliferative diabetic retinopathy without macular edema, bilateral (principal); Z79.4 Long term (current) use of insulin; N18.32 Chronic kidney disease, stage 3b; E78.2 Mixed hyperlipidemia; I10 Essential (primary) hypertension

== ENCOUNTER → 2024-12-30 09:48 | Outpatient (BNVA) | payer MEDICARE, SELFPAY | PROVIDERS: PCP Internal Medicine; Visit Provider Physician Assistant Medical | DX: N18.32 Chronic kidney disease, stage 3b (principal); E78.2 Mixed hyperlipidemia; I10 Essential (primary) hypertension; E11.9 Type 2 diabetes mellitus without complications | CPT/HCPCS: 82947; 99212 ==

== ENCOUNTER 2025-02-17 09:48 | Outpatient (AMB) | payer MEDICARE, SELFPAY ==
--- NOTE | 2025-02-17 09:50 | MHC.OFFVIS ---
Vital Signs 02/17/25 09:55 Height 5 ft 6.5 in Weight 183 lb 10.321 oz BMI 29.2 BP 114/68 Blood Pressure Location Rt brachial Position Sitting Pulse 64 Pulse Source Pulse Oximeter Pulse Oximetry (%) 96 Oxygen Delivery Method Room Air Intake Visit Reasons: Type II Diabetes Intake Note: Patient present today for T2DM Patient receives Tim 3 Plus sensor through: [facility] Pharmacy Last Diabetic Eye exam: August 17, 2024 Last Podiatry Visit: Does not see a Plastics Repairer Random Glucose: 260 mg/dl HgA1C: 9.5% 02/17/2025 Technical Communicator Required: No Accompanied by: Self / Same As Patient Allergies No Known Allergies Allergy (Verified 02/17/25 09:55) HPI Comments Details: This is an 84-year-old female with a past medical history of type 2 diabetes, chronic kidney disease, CAD, sick sinus syndrome s/p placement of cardiac pacemaker and left breast cancer presenting for diabetes management. She was diagnosed with diabetes in 1991. There is a family history of diabetes: son, daughter (), many of her family members on her mother's side of the family have type 2 diabetes. There is no known family history of type 1 diabetes. Hemoglobin a1c 9.5% today 02/17/2025. Reviewed Tim 3+ data CGM active 95% G VA 8.6% Glucose variability 28.5% Very high 30% High 39% Target range 31% 0% hypoglycemia Patient is having hyperglycemia throughout 24 hours , it is worse during the day and improves overnight. She is working on her diet, but she is still having some sugary drinks and carbohydrates. Current medication regimen: Ozempic 2 mg weekly, Metformin extended release 500 mg daily, toujeo 82 units every evening, humalog per sliding scale. I prescribed Mounjaro to switch from Ozempic, but she never received it from the pharmacy. Past medication: Glipizide and Jardiance. She did not tolerate side effects of the medications. She says Jardiance caused stomach upset. Compliance issues: none Microvascular complications: neuropathy, nephropathy ([facility]), retinopathy (Dr. Sewell) Macrovascular complications: CAD (Dr. Leon) Hypertension: treated with carvedilol 12.5 mg twice daily, spironolactone 25 mg daily Hyperlipidemia: treated with Zetia 10 mg, atorvastatin 20 mg ROS: Constitutional: No unexplained weight loss, fever, chills or night sweats. Eyes: No vision changes, blurry vision, double vision, eye pain, eye redness, eye discharge. Respiratory: No shortness of breath Cardiovascular: No chest pain Gastrointestinal: No anorexia, nausea, vomiting or diarrhea. No abdominal pain Neurologic: No headache, dizziness, syncope, +neuropathy in her feet Skin: No open wounds Endocrine: No cold or heat intolerance. Physical exam: Constitutional: Alert, in no distress. Head: Normocephalic. Eyes: Pupils are equal, round and reactive to light. Extraocular muscles intact. Neck: Supple, Full range of motion. No lymphadenopathy. No palpable thyroid masses. Respiratory: Clear to auscultation. Cardiovascular: S1 S2 regular. No murmurs. 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 Mother Mental health disorder Social History Housing: Apartment Alcohol intake: former Patient Tobacco Use Status: Never used Tobacco e-Cigarette/Vaping Use: Never Used Current occupational status: retired Cognitive needs: No Hearing needs: No Vision needs: Yes Physical Exam Vital Signs: Last Vital Signs Pulse 64 02/17/25 09:55 BP 114/68 02/17/25 09:55 Pulse Ox 96 02/17/25 09:55 Oxygen Delivery Method Room Air 02/17/25 09:55 BMI result Body Mass Index 29.2 Office Procedures Glucose Monitoring Details Details: [facility] [address] - Glucose monitoring, continuous-physician I&R Procedure code (CPT) selection complete Results AMB Hemoglobin A1c AMB Hemoglobin A1c 9.5 % Last Edit by MCKENZIE Tijerina on 02/17/25 10:16 Results Reviewed Results Reviewed: Laboratory Last Values Glucose (Clinic) 260 mg/dL (60-115) H 02/17/25 10:03 Hgb A1c (Clinic) 9.5 % (4.0-6.0) H 02/17/25 10:16 Laboratory Tests 11/03/24 12/16/24 09:46 12:50 Creatinine 1.26 Estimated GFR 40 AST 32 H ALT 27 Triglycerides 172 H Cholesterol 173 LDL Cholesterol, Calc 102 H HDL Cholesterol 37 L Urine Creatinine 153.50 Urine Microalbumin 37.0 Microalb/Creat Ratio 24.0 Assessment & Plan Assessment & Plan (1) 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, with long-term current use of insulin: Code(s): E11.3293 - 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 Discussed pathophysiology of Type II Diabetes Mellitus with the patient in detail.? I explained the detention risks and complications associated with uncontrolled diabetes including nephropathy, neuropathy, peripheral vascular disease, retinopathy, increased risk of heart disease and stroke.? Discussed lifestyle modification with the patient. Declined referral to residential glazier and dietitian. She needs to follow the diabetic diet. She is going to decrease carbs and sugars. She has one touch ultra glucometer, lancets and test strips. Defers trial of alternative SGLT2. Continue Toujeo 82 units nightly. Switch Ozempic to Mounjaro 2.5 mg weekly. Continue Metformin 500 mg once daily Continue Humalog three times daily, and administer this 15 minutes before meals: Blood sugar under 120 take 0 units Blood sugar 121-149 Take 14 units Blood sugar 150-199 mg/dL take 16 units Blood sugar 200-249 mg/dL take 18 units Blood sugar 250-299 mg/dL take 20 units Blood sugar 300-349 mg/dL take 22 units Blood sugar 350-399 mg/dL take 24 units Blood sugar >/=400 mg /dL take 26 units Reviewed treatment of hypoglycemia with the patient. Patient thinks she may have had 1 low blood sugar episode because she felt dizzy,, but she did not check a fingerstick, and her sensor was not working. She weight chocolate candy. Written instructions provided. Prescribed true +glucose gel. We discussed that if the sensor is giving her a blood sugar reading that is out of range or she is symptomatic to check a fingerstick. (2) CKD (chronic kidney disease): Code(s): N18.9 - Chronic kidney disease, unspecified Category: Medical Qualifiers: Chronic kidney disease stage: stage 3 (moderate) Chronic kidney disease stage 3 subtype: stage 3b (GFR 30-44) Qualified Code(s): N18.32 - Chronic kidney disease, stage 3b Plan: She did not tolerate dot Jardiance. Consider trial of Invokana. She does not want to add more medication at this time. Avoid nephrotoxic medications. (3) Mixed dyslipidemia: Code(s): E78.2 - Mixed hyperlipidemia Category: Medical Plan: Recommended Mediterranean diet. Continue Zetia and atorvastatin. (4) Essential hypertension: Code(s): I10 - Essential (primary) hypertension Category: Medical Plan: Controlled. Continue carvedilol and spironolactone. 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 owner operator truck driver (current) use of insulin AMB Glucose Monitoring Today E11.9 - Type 2 diabetes mellitus without complications Medications: New dextrose (TRUEplus Glucose) until symptoms of low blood sugar are controlled 15 grams (32 mL) PO Q15M PRN 128 mL 3RF hypoglycemia Refilled tirzepatide (Mounjaro) for 4 weeks 2.5 mg (0.5 mL) subcut QWEEK 2 mL 0RF Patient Instructions: If you experience low blood sugar (under 70), treat this by eating a chewable fruit candy like skittles or jelly beans (about 8 pieces), 4 ounces (1/2 cup) of fruit juice (not diet), 1 tablespoon of honey or 1 pack of dextrose gel . If your blood sugar is under 50, take double the amount of one of the above. Recheck your blood sugar in 15 minutes. 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
[2025-02-17 09:55] VITALS: BP 114/68; PULSE 64; O2SAT 96; BMI 29.2
[2025-02-17 10:08] LABS: Glucose, Whole Blood 260 mg/dL (60-115)
== END 2025-02-17 10:40 | disposition home or self-care (01) ==
LOC: HO.ENCR 09:49
PROVIDERS: PCP Internal Medicine; Visit Provider Physician Assistant Medical
DX: E11.3293 Type 2 diabetes mellitus with mild nonproliferative diabetic retinopathy without macular edema, bilateral (principal); Z79.4 Long term (current) use of insulin; N18.32 Chronic kidney disease, stage 3b; E78.2 Mixed hyperlipidemia; I10 Essential (primary) hypertension

== ENCOUNTER → 2025-02-17 09:48 | Outpatient (BNVA) | payer MEDICARE, SELFPAY | PROVIDERS: PCP Internal Medicine; Visit Provider Physician Assistant Medical | DX: E11.3293 Type 2 diabetes mellitus with mild nonproliferative diabetic retinopathy without macular edema, bilateral (principal); I12.9 Hypertensive chronic kidney disease with stage 1 through stage 4 chronic kidney disease, or unspecified chronic kidney disease; E11.22 Type 2 diabetes mellitus with diabetic chronic kidney disease; N18.32 Chronic kidney disease, stage 3b; E11.40 Type 2 diabetes mellitus with diabetic neuropathy, unspecified; E11.65 Type 2 diabetes mellitus with hyperglycemia; E78.2 Mixed hyperlipidemia; Z79.899 Other long term (current) drug therapy; Z79.4 Long term (current) use of insulin; Z79.85 Long-term (current) use of injectable non-insulin antidiabetic drugs | CPT/HCPCS: 82947; 83036; 99212 ==